=== PATIENT | female | born 1975 | race Caucasian/White ===

== ENCOUNTER 2016-05-06 08:20 | Emergency (ER) | payer OTHER ==
[2016-05-06] MEDS ORDERED: ONDANSETRON 4 MG/2 ML VIAL IVP STA (08:47)
[2016-05-06] MEDS ORDERED: HYDROmorphone 1 MG/ML 1 ML SYRINGE IVP STA ×2 (08:47→10:53)
[2016-05-06] MEDS ORDERED: SODIUM CHLORIDE 0.9% 1,000 ML IV STA ×2 (08:48)
--- NOTE | 2016-05-06 08:50 | ED ---
General Adult HPI - General Chief complaint: Abdominal Pain Stated complaint: ABDOMINAL DISTENTION, TAILBONE PAIN, FATIQUE Time Seen by Provider: 05/06/16 08:38 Source: patient, RN notes reviewed Mode of arrival: ambulatory - History of Present Illness Initial comments: Patient's a 41-year-old female who presents emergency room today with chief complaint of possible constipation over the last 4-5 days. She states she is unable to have a good bowel movement. She states she is only having small bowel movements since been passing much bowel gas. States she has been burping and belching. Patient does admit to lower abdominal pain cramping. She states she feels somewhat distended. Currently rates pain 9/10. She denies any other complaints or associated symptoms. Patient denies any recent fever, chills, shortness of breath, chest pain, back pain, nausea or vomiting, numbness or tingling, dysuria or hematuria, diarrhea, headaches or visual changes, or any other complaints. - Related Data Home Medications Medication Instructions Recorded Confirmed Levothyroxine Sodium [Synthroid] 112 mcg PO DAILY 05/22/15 05/06/16 Triamterene-Hctz 37.5-25Mg 1 tab PO DAILY 05/22/15 05/06/16 [Maxzide 37.5-25] ALPRAZolam [Xanax] 1 mg PO DAILY PRN 05/06/16 05/06/16 Hydrocodone/Acetaminophen [[place] 1 tab PO DAILY PRN 05/06/16 05/06/16 10-325] Melatonin 20 mg PO HS PRN 05/06/16 05/06/16 Naproxen 500 mg PO BID PRN 05/06/16 05/06/16 Nitrofurantoin Monohyd/M-Cryst 100 mg PO BID 05/06/16 05/06/16 [Macrobid] Phentermine HCl [Adipex-P] 37.5 mg PO DAILY 05/06/16 05/06/16 metFORMIN HCL [Glucophage] 500 mg PO BID 05/06/16 05/06/16 Previous Rx's Medication Instructions Recorded Ciprofloxacin HCl [Cipro] 500 mg PO Q12HR #14 day 05/06/16 Hydrocodone/Acetaminophen [[place] 1 each PO Q6HR PRN #10 tab 05/06/16 5-325] metroNIDAZOLE [Flagyl] 500 mg PO TID 7 Days 05/06/16 Allergies Allergy/AdvReac Type Severity Reaction Status Date / Time codeine Allergy Rash/Hives Verified 05/06/16 08:48 Review of Systems ROS Statement: Those systems with pertinent positive or pertinent negative responses have been documented in the HPI. ROS Other: All systems not noted in ROS Statement are negative. Past Medical History Past Medical History: Asthma, Hypertension, Thyroid Disorder Additional Past Medical History / Comment(s): celiac,chronic back pain,pcos History of Any Multi-Drug Resistant Organisms: None Reported Past Surgical History: Section, Tonsillectomy Past Psychological History: Anxiety Smoking Status: Current every day smoker Past Alcohol Use History: Occasional Past Drug Use History: None Reported General Exam - General Exam Comments Initial Comments: General: The patient is awake and alert, in no distress, and does not appear acutely ill. Eye: Pupils are equal, round and reactive to light, extra-ocular movements are intact. No nystagmus. There is normal conjunctiva bilaterally. No signs of icterus. Ears, nose, mouth and throat: There are moist mucous membranes and no oral lesions. Neck: The neck is supple, there is no tenderness or JVD. Cardiovascular: There is a regular rate and rhythm. No murmur, rub or gallop is appreciated. Respiratory: Lungs are clear to auscultation, respirations are non-labored, breath sounds are equal. No wheezes, stridor, rales, or rhonchi. Gastrointestinal: Normal appearance for abdomen. Normal bowel sounds. Abdomen soft on palpation. Patient does have mild tenderness lower abdomen both on the right left lower quadrants. No rebound tenderness. No guarding. No CVA tenderness. Musculoskeletal: Normal ROM, no tenderness. Strength 5/5. Sensation intact. Pulses equal bilaterally 2+. Neurological: A&O x 3. CN II-XII intact, There are no obvious motor or sensory deficits. Coordination appears grossly intact. Speech is normal. Skin: Skin is warm and dry and no rashes or lesions are noted. Psychiatric: Cooperative, appropriate mood & affect, normal judgment. Course Vital Signs 05/06/16 08:25 Temperature 97 F L Pulse Rate 94 Respiratory 18 Rate Blood Pressure 120/67 O2 Sat by Pulse 100 Oximetry Medical Decision Making - Medical Decision Making Case discussed in detail with attending physician Dr. Garcia. Patient's labs reviewed 11,000 white count. Patient's CAT scan revealing a sigmoid diverticulitis. Results were discussed with the patient. Patient will be started on Cipro Flagyl. Patient feeling comfortable at this time will be discharged home advised follow-up over the next 2 days. Advised return if any symptoms increase or worsen or for any other concerns. - Lab Data Result diagrams: 05/06/16 09:00 05/06/16 09:00 Lab Results 05/06/16 05/06/16 05/06/16 Range/Units 08:55 08:55 09:00 WBC 11.1 H (3.8-10.6) k/uL RBC 5.20 (3.80-5.40) m/uL Hgb 14.8 (11.4-16.0) gm/dL Hct 45.3 (34.0-46.0) % MCV 87.2 (80.0-100.0) fL MCH 28.4 (25.0-35.0) pg MCHC 32.5 (31.0-37.0) g/dL RDW 12.7 (11.5-15.5) % Plt Count 337 (150-450) k/uL Neutrophils % 76 % Lymphocytes % 17 % Monocytes % 4 % Eosinophils % 2 % Basophils % 1 % Neutrophils # 8.4 H (1.3-7.7) k/uL Lymphocytes # 1.8 (1.0-4.8) k/uL Monocytes # 0.4 (0-1.0) k/uL Eosinophils # 0.2 (0-0.7) k/uL Basophils # 0.1 (0-0.2) k/uL Sodium (137-145) mmol/L Potassium (3.5-5.1) mmol/L Chloride (98-107) mmol/L Carbon Dioxide (22-30) mmol/L Anion Gap mmol/L BUN (7-17) mg/dL Creatinine (0.52-1.04) mg/dL Est GFR (MDRD) Af Amer (>60 ml/min/1.73 sqM) Est GFR (MDRD) Non-Af (>60 ml/min/1.73 sqM) Glucose (74-99) mg/dL Calcium (8.4-10.2) mg/dL Total Bilirubin (0.2-1.3) mg/dL AST (14-36) U/L ALT (9-52) U/L Alkaline Phosphatase (38-126) U/L Total Protein (6.3-8.2) g/dL Albumin (3.5-5.0) g/dL Urine Color Yellow Urine Appearance Cloudy H (Clear) Urine pH 7.5 (5.0-8.0) Ur Specific [place] 1.006 (1.001-1.035) Urine Protein Negative (Negative) Urine Glucose (UA) Negative (Negative) Urine Ketones Negative (Negative) Urine Blood Moderate H (Negative) Urine Nitrate Negative (Negative) Urine Bilirubin Negative (Negative) Urine Urobilinogen <2.0 (<2.0) mg/dL Ur Leukocyte Esterase Moderate H (Negative) Urine RBC 2 (0-5) /hpf Urine WBC 5 (0-5) /hpf Ur Squamous Epith Cells 13 H (0-4) /hpf Urine Bacteria Rare H (None) /hpf Urine Mucus Rare H (None) /hpf Urine HCG, Qual Not Detected (Not Detectd) 05/06/16 Range/Units 09:00 WBC (3.8-10.6) k/uL RBC (3.80-5.40) m/uL Hgb (11.4-16.0) gm/dL Hct (34.0-46.0) % MCV (80.0-100.0) fL MCH (25.0-35.0) pg MCHC (31.0-37.0) g/dL RDW (11.5-15.5) % Plt Count (150-450) k/uL Neutrophils % % Lymphocytes % % Monocytes % % Eosinophils % % Basophils % % Neutrophils # (1.3-7.7) k/uL Lymphocytes # (1.0-4.8) k/uL Monocytes # (0-1.0) k/uL Eosinophils # (0-0.7) k/uL Basophils # (0-0.2) k/uL Sodium 142 (137-145) mmol/L Potassium 4.2 (3.5-5.1) mmol/L Chloride 99 (98-107) mmol/L Carbon Dioxide 30 (22-30) mmol/L Anion Gap 13 mmol/L BUN 12 (7-17) mg/dL Creatinine 0.79 (0.52-1.04) mg/dL Est GFR (MDRD) Af Amer >60 (>60 ml/min/1.73 sqM) Est GFR (MDRD) Non-Af >60 (>60 ml/min/1.73 sqM) Glucose 93 (74-99) mg/dL Calcium 9.8 (8.4-10.2) mg/dL Total Bilirubin 0.6 (0.2-1.3) mg/dL AST 24 (14-36) U/L ALT 35 (9-52) U/L Alkaline Phosphatase 66 (38-126) U/L Total Protein 7.7 (6.3-8.2) g/dL Albumin 4.7 (3.5-5.0) g/dL Urine Color Urine Appearance (Clear) Urine pH (5.0-8.0) Ur Specific [place] (1.001-1.035) Urine Protein (Negative) Urine Glucose (UA) (Negative) Urine Ketones (Negative) Urine Blood (Negative) Urine Nitrate (Negative) Urine Bilirubin (Negative) Urine Urobilinogen (<2.0) mg/dL Ur Leukocyte Esterase (Negative) Urine RBC (0-5) /hpf Urine WBC (0-5) /hpf Ur Squamous Epith Cells (0-4) /hpf Urine Bacteria (None) /hpf Urine Mucus (None) /hpf Urine HCG, Qual (Not Detectd) Disposition Clinical Impression: Diverticulitis Disposition: HOME SELF-CARE Condition: Good Instructions: Diverticulitis (ED) Additional Instructions: Please use medication as discussed. Please follow-up with family doctor in the next 2 days of symptoms have not improved. Please return to emergency room if the symptoms increase or worsen or for any other concerns. Prescriptions: Ciprofloxacin HCl [Cipro] 500 mg PO Q12HR #14 day Hydrocodone/Acetaminophen [[place] 5-325] 1 each PO Q6HR PRN #10 tab PRN Reason: Pain metroNIDAZOLE [Flagyl] 500 mg PO TID 7 Days Time of Disposition: 12:15
[2016-05-06 09:20] LABS: Basophils # (A) 0.1 k/uL (0-0.2); Basophils % (A) 1 %; CH 29.1; CHCM 33.5; Eosinophils # (A) 0.2 k/uL (0-0.7); Eosinophils % (A) 2 %; HCT 45.3 % (34.0-46.0); HDW 2.61; HGB 14.8 gm/dL (11.4-16.0); Luc # (Auto) 0.15; Luc % (Auto) 1; Lymphocytes # (A) 1.8 k/uL (1.0-4.8); Lymphocytes % (A) 17 %; MCH 28.4 pg (25.0-35.0); MCHC 32.5 g/dL (31.0-37.0); MCV 87.2 fL (80.0-100.0); Mean Platelet Volume 6.3; Monocytes # (A) 0.4 k/uL (0-1.0); Monocytes % (A) 4 %; Neutrophils # (A) 8.4 k/uL (1.3-7.7); Neutrophils % (A) 76 %; RDW 12.7 % (11.5-15.5); WBC 11.1 k/uL (3.8-10.6)
[2016-05-06 09:37] LABS: ALT 35 U/L (9-52); AST 24 U/L (14-36); Alkaline Phosphatase 66 U/L (38-126); Anion Gap 13 mmol/L; Blood Urea Nitrogen 12 mg/dL (7-17); Calcium 9.8 mg/dL (8.4-10.2); Carbon Dioxide 30 mmol/L (22-30); Chloride 99 mmol/L (98-107); Glucose 93 mg/dL (74-99); Non-African American GFR(MDRD) >60 (>60 ml/min/1.73 sqM); Potassium 4.2 mmol/L (3.5-5.1); Sodium 142 mmol/L (137-145); Total Bilirubin 0.6 mg/dL (0.2-1.3); Total Protein 7.7 g/dL (6.3-8.2)
[2016-05-06 09:40] LABS: Appearance,Urine Cloudy (Clear); Bacteria,Urine Rare /hpf; Bilirubin,Urine Negative (Negative); Glucose,Urine (UA) Negative (Negative); Ketones,Urine Negative (Negative); Leukocyte Esterase,Urine Moderate (Negative); Mucus,Urine Rare /hpf; Nitrite,Urine Negative (Negative); PH, Urine 7.5 (5.0-8.0); Particle Count 2925; Protein,Urine Negative (Negative); RBC,Urine 2 /hpf (0-5); Specific Gravity,Urine 1.006 (1.001-1.035); Squamous Epithelial Cell,Urine 13 /hpf (0-4); UA Billing (MACRO vs. MICRO) MICRO; Urobilinogen,Urine <2.0 mg/dL (<2.0); WBC,Urine 5 /hpf (0-5)
--- NOTE | 2016-05-06 10:10 | XR ---
EXAMINATION TYPE: XR abdomen complete w decub DATE OF EXAM: 05/06/2016 9:55 AM COMPARISON: NONE HISTORY: 41-year-old female lower abdominal pain with constipation TECHNIQUE: Single view of the chest and 2 views of the abdomen are submitted. FINDINGS: Lung bases are clear. No evidence for free intraperitoneal air. Numerous colonic air fluid levels and a few small bowel air-fluid levels as well without abnormal bow el dilatation. Cholecystectomy clips are present. IUD device is also seen. No suspicious calcification seen. There is mild degenerative change in both hips with prominent marginal spurring along the superior ac etabulum and can deformities at both hips. IMPRESSION: 1. Prominent colonic air-fluid levels and some small bowel air fluid levels as well. Correlate for en teritis or generalized ileus. 2. Overall nonobstructive bowel gas pattern at this time. No evidence for free air. 3. 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
[2016-05-06] MEDS ORDERED: RX INFO: IV CONTRAST WAS GIVEN 1 EACH MISC MISCELLANE PRN (10:53)
--- NOTE | 2016-05-06 11:47 | CT ---
EXAMINATION TYPE: CT abdomen pelvis w con DATE OF EXAM: 05/06/2016 11:40 AM COMPARISON: 06/29/2012 HISTORY: distention, bloating, constipation for [address] DLP: 1085.8 mGycm Automated exposure control for dose reduction was used. CONTRAST: CT scan of the abdomen pelvis is performed with IV Contrast, patient injected with 100 ml mL of Omnip aque 300. FINDINGS- LUNG BASES-subsegmental atelectasis at both lung bases.. LIVER/GB-surgical clips in the gallbladder fossa noted. PANCREAS- No gross abnormality is seen. SPLEEN- No gross abnormality is seen. ADRENALS- No gross abnormality is seen. KIDNEYS/BLADDER- no hydronephrosis nephrolithiasis or renal mass. BOWEL-there is diverticular change in the sigmoid colon with pericolonic inflammatory change compatib le with mild acute diverticulitis. No abscess or free air. LYMPH NODES- No greater than 1cm abdominal or pelvic lymph nodes are appreciated. OSSEOUS STRUCTURES-facet arthropathy noted. Hypertrophic changes of the spine seen. OTHER- aorta of normal caliber. IMPRESSION- 1. Acute uncomplicated sigmoid diverticulitis.
[2016-05-06 12:48] VITALS: BP 111/62; PULSE 73; RESP 16; TEMP 98.3
== END 2016-05-06 12:47 | disposition home or self-care (01) ==
LOC: EC 08:20
DX: K57.32 Diverticulitis of large intestine without perforation or abscess without bleeding (principal); I10 Essential (primary) hypertension; E07.9 Disorder of thyroid, unspecified; E28.2 Polycystic ovarian syndrome; F41.9 Anxiety disorder, unspecified; F17.200 Nicotine dependence, unspecified, uncomplicated; Z79.84 Long term (current) use of oral hypoglycemic drugs; Z79.899 Other long term (current) drug therapy; Z88.5 Allergy status to narcotic agent
CPT/HCPCS: 36415; 80053; 85025; 81001; 81025; 87086; 74020; 74177; 99284; 96374; 96375; 96376; 96361 ×4; J2405; J1170; Q9967

== ENCOUNTER 2016-05-11 16:30 | Emergency (ER) | payer OTHER ==
[2016-05-11] MEDS ORDERED: SODIUM CHLORIDE 0.9% 1,000 ML IV ONE (17:03)
[2016-05-11] MEDS ORDERED: MORPHINE SULFATE 4 MG/ML SYRINGE IVP STA (17:03)
--- NOTE | 2016-05-11 17:06 | ED ---
Abdominal Pain HPI - General Chief Complaint: Abdominal Pain Stated Complaint: Rectal Pain Time Seen by Provider: 05/11/16 16:54 Source: patient Mode of arrival: ambulatory Limitations: no limitations - History of Present Illness Initial Comments: This is a 41-year-old female who presents in [facility] for abdominal pain and rectal pain. She states that she was recently in the hospital and diagnosed with diverticulitis. She's been on Cipro and Flagyl at home. She reports that she was having improvement in her symptoms however she had a bowel movement yesterday and then started having worsening pain in her left lower quadrant and rectum. She states that she has not had any fevers or chills. She has not missed any doses of antibiotics. She states that it feels worse than when she originally presented. She is concerned that the infection is getting worse. She denies any other complaints. - Related Data Home Medications Medication Instructions Recorded Confirmed Levothyroxine Sodium [Synthroid] 112 mcg PO DAILY 05/22/15 05/11/16 Triamterene-Hctz 37.5-25Mg 1 tab PO DAILY 05/22/15 05/11/16 [Maxzide 37.5-25] Melatonin 20 mg PO HS PRN 05/06/16 05/11/16 Naproxen 500 mg PO BID PRN 05/06/16 05/11/16 Phentermine HCl [Adipex-P] 37.5 mg PO DAILY 05/06/16 05/11/16 metFORMIN HCL [Glucophage] 500 mg PO BID 05/06/16 05/11/16 ALPRAZolam [Xanax] 1 mg PO BID PRN 05/11/16 05/11/16 Hydrocodone/Acetaminophen [[place] 1 tab PO Q6HR PRN 05/11/16 05/11/16 5-325] Previous Rx's Medication Instructions Recorded Ciprofloxacin HCl [Cipro] 500 mg PO Q12HR #14 day 05/06/16 metroNIDAZOLE [Flagyl] 500 mg PO TID 7 Days 05/06/16 Ciprofloxacin HCl [Cipro] 500 mg PO Q12HR #6 tablet 05/11/16 HYDROcodone/APAP 5-325MG [[place] 1 tab PO Q6HR PRN #15 tab 05/11/16 5-325] metroNIDAZOLE [Flagyl] 500 mg PO Q8HR #9 tab 05/11/16 Allergies Allergy/AdvReac Type Severity Reaction Status Date / Time codeine Allergy Mild Itching Verified 05/11/16 17:36 Review of Systems ROS Statement: Those systems with pertinent positive or pertinent negative responses have been documented in the HPI. ROS Other: All systems not noted in ROS Statement are negative. Past Medical History Past Medical History: Asthma, Hypertension, Thyroid Disorder Additional Past Medical History / Comment(s): celiac,chronic back pain,pcos History of Any Multi-Drug Resistant Organisms: None Reported, MRSA Date of last positivie culture/infection: 2007 MDRO Source:: leg Past Surgical History: Section, Cholecystectomy, Tonsillectomy Past Psychological History: Anxiety Smoking Status: Former smoker Past Alcohol Use History: Occasional Past Drug Use History: None Reported General Exam - General Exam Comments Initial Comments: Constitutional: Awake alert Appears comfortable Head: Normocephalic atraumatic Eyes: no conjunctival injection No scleral icterus EOMI Neck: No JVD Supple Heart: Regular rate rhythm normal S1-S2 no murmurs Lungs: Clear to auscultation bilaterally No wheezing No rales Abdomen: Soft nondistended tenderness to the left lower quadrant and left upper quadrant Extremities: Non edematous DP pulses intact Radial pulses intact Neuro: A&Ox3 No focal neurologic deficits Psych: Appropriate mood and affect Limitations: no limitations Course Vital Signs 05/11/16 16:47 Temperature 98.1 F Pulse Rate 97 Respiratory 18 Rate Blood Pressure 131/59 O2 Sat by Pulse 98 Oximetry Medical Decision Making - Medical Decision Making This is a 41-year-old female who presents emergency department for worsening rectal pain. Computed tomography scan did confirm persistent diverticulitis however it did seem to be improving. At this time going to send her home on a prolonged course of Cipro and Flagyl. She's taken 6 days worth and when he give her 3 more days. I also going to refill her pain medication. She can follow-up with her primary doctor for reevaluation. I also believe that she needs to be in the stool softener and given 500 her diet. I think that some of her discomfort is likely related to constipation. Told her that if she continues to have persistent symptoms are worsen she can return. All questions were answered. - Lab Data Result diagrams: 05/11/16 17:30 05/11/16 17:30 Lab Results 05/11/16 05/11/16 05/11/16 Range/Units 17:30 17:30 17:41 WBC 9.0 (3.8-10.6) k/uL RBC 5.02 (3.80-5.40) m/uL Hgb 14.2 (11.4-16.0) gm/dL Hct 43.2 (34.0-46.0) % MCV 86.2 (80.0-100.0) fL MCH 28.2 (25.0-35.0) pg MCHC 32.8 (31.0-37.0) g/dL RDW 12.9 (11.5-15.5) % Plt Count 287 (150-450) k/uL Neutrophils % 62 % Lymphocytes % 27 % Monocytes % 5 % Eosinophils % 4 % Basophils % 1 % Neutrophils # 5.6 (1.3-7.7) k/uL Lymphocytes # 2.4 (1.0-4.8) k/uL Monocytes # 0.4 (0-1.0) k/uL Eosinophils # 0.3 (0-0.7) k/uL Basophils # 0.1 (0-0.2) k/uL Sodium 141 (137-145) mmol/L Potassium 3.8 (3.5-5.1) mmol/L Chloride 100 (98-107) mmol/L Carbon Dioxide 29 (22-30) mmol/L Anion Gap 12 mmol/L BUN 10 (7-17) mg/dL Creatinine 0.70 (0.52-1.04) mg/dL Est GFR (MDRD) Af Amer >60 (>60 ml/min/1.73 sqM) Est GFR (MDRD) Non-Af >60 (>60 ml/min/1.73 sqM) Glucose 72 L (74-99) mg/dL Calcium 9.6 (8.4-10.2) mg/dL Total Bilirubin 0.2 (0.2-1.3) mg/dL AST 46 H (14-36) U/L ALT 51 (9-52) U/L Alkaline Phosphatase 53 (38-126) U/L Total Protein 6.7 (6.3-8.2) g/dL Albumin 4.2 (3.5-5.0) g/dL Urine Color Urine Appearance (Clear) Urine pH (5.0-8.0) Ur Specific [place] (1.001-1.035) Urine Protein (Negative) Urine Glucose (UA) (Negative) Urine Ketones (Negative) Urine Blood (Negative) Urine Nitrate (Negative) Urine Bilirubin (Negative) Urine Urobilinogen (<2.0) mg/dL Ur Leukocyte Esterase (Negative) Urine RBC (0-5) /hpf Urine WBC (0-5) /hpf Ur Squamous Epith Cells (0-4) /hpf Urine HCG, Qual Not Detected (Not Detectd) 05/11/16 Range/Units 17:41 WBC (3.8-10.6) k/uL RBC (3.80-5.40) m/uL Hgb (11.4-16.0) gm/dL Hct (34.0-46.0) % MCV (80.0-100.0) fL MCH (25.0-35.0) pg MCHC (31.0-37.0) g/dL RDW (11.5-15.5) % Plt Count (150-450) k/uL Neutrophils % % Lymphocytes % % Monocytes % % Eosinophils % % Basophils % % Neutrophils # (1.3-7.7) k/uL Lymphocytes # (1.0-4.8) k/uL Monocytes # (0-1.0) k/uL Eosinophils # (0-0.7) k/uL Basophils # (0-0.2) k/uL Sodium (137-145) mmol/L Potassium (3.5-5.1) mmol/L Chloride (98-107) mmol/L Carbon Dioxide (22-30) mmol/L Anion Gap mmol/L BUN (7-17) mg/dL Creatinine (0.52-1.04) mg/dL Est GFR (MDRD) Af Amer (>60 ml/min/1.73 sqM) Est GFR (MDRD) Non-Af (>60 ml/min/1.73 sqM) Glucose (74-99) mg/dL Calcium (8.4-10.2) mg/dL Total Bilirubin (0.2-1.3) mg/dL AST (14-36) U/L ALT (9-52) U/L Alkaline Phosphatase (38-126) U/L Total Protein (6.3-8.2) g/dL Albumin (3.5-5.0) g/dL Urine Color Yellow Urine Appearance Clear (Clear) Urine pH 6.0 (5.0-8.0) Ur Specific [place] 1.006 (1.001-1.035) Urine Protein Negative (Negative) Urine Glucose (UA) Negative (Negative) Urine Ketones Trace H (Negative) Urine Blood Negative (Negative) Urine Nitrate Negative (Negative) Urine Bilirubin Negative (Negative) Urine Urobilinogen <2.0 (<2.0) mg/dL Ur Leukocyte Esterase Small H (Negative) Urine RBC <1 (0-5) /hpf Urine WBC 2 (0-5) /hpf Ur Squamous Epith Cells 5 H (0-4) /hpf Urine HCG, Qual (Not Detectd) Disposition Clinical Impression: Diverticulitis Disposition: HOME SELF-CARE Condition: Stable Instructions: Diverticulitis (ED) Prescriptions: Ciprofloxacin HCl [Cipro] 500 mg PO Q12HR #6 tablet HYDROcodone/APAP 5-325MG [[place] 5-325] 1 tab PO Q6HR PRN #15 tab PRN Reason: Pain metroNIDAZOLE [Flagyl] 500 mg PO Q8HR #9 tab Referrals: Lorraine Redd MD [Primary Care Provider] - 1-2 days
[2016-05-11 17:40] LABS: Basophils # (A) 0.1 k/uL (0-0.2); Basophils % (A) 1 %; CH 29.1; Eosinophils # (A) 0.3 k/uL (0-0.7); Eosinophils % (A) 4 %; HCT 43.2 % (34.0-46.0); HDW 2.69; HGB 14.2 gm/dL (11.4-16.0); Luc # (Auto) 0.14; Luc % (Auto) 2; Lymphocytes # (A) 2.4 k/uL (1.0-4.8); Lymphocytes % (A) 27 %; MCH 28.2 pg (25.0-35.0); MCHC 32.8 g/dL (31.0-37.0); MCV 86.2 fL (80.0-100.0); Mean Platelet Volume 6.9; Monocytes # (A) 0.4 k/uL (0-1.0); Monocytes % (A) 5 %; Neutrophils # (A) 5.6 k/uL (1.3-7.7); Neutrophils % (A) 62 %; RBC 5.02 m/uL (3.80-5.40); RDW 12.9 % (11.5-15.5); WBC (Perox) 8.77
[2016-05-11 17:51] LABS: ALT 51 U/L (9-52); AST 46 U/L (14-36); Alkaline Phosphatase 53 U/L (38-126); Anion Gap 12 mmol/L; Blood Urea Nitrogen 10 mg/dL (7-17); Calcium 9.6 mg/dL (8.4-10.2); Carbon Dioxide 29 mmol/L (22-30); Chloride 100 mmol/L (98-107); Glucose 72 mg/dL (74-99); Non-African American GFR(MDRD) >60 (>60 ml/min/1.73 sqM); Potassium 3.8 mmol/L (3.5-5.1); Sodium 141 mmol/L (137-145); Total Bilirubin 0.2 mg/dL (0.2-1.3); Total Protein 6.7 g/dL (6.3-8.2)
[2016-05-11 18:01] LABS: Appearance,Urine Clear (Clear); Bilirubin,Urine Negative (Negative); Glucose,Urine (UA) Negative (Negative); Ketones,Urine Trace (Negative); Leukocyte Esterase,Urine Small (Negative); Nitrite,Urine Negative (Negative); Particle Count 748; Protein,Urine Negative (Negative); RBC,Urine <1 /hpf (0-5); Specific Gravity,Urine 1.006 (1.001-1.035); Squamous Epithelial Cell,Urine 5 /hpf (0-4); UA Billing (MACRO vs. MICRO) MICRO; Urobilinogen,Urine <2.0 mg/dL (<2.0); WBC,Urine 2 /hpf (0-5)
[2016-05-11] MEDS ORDERED: ONDANSETRON 4 MG/2 ML VIAL IVP STA (18:33)
--- NOTE | 2016-05-11 18:40 | CT ---
EXAMINATION TYPE: CT abdomen pelvis wo con DATE OF EXAM: 05/11/2016 6:34 PM COMPARISON: 05/06/2016 HISTORY: Pt states of LLQ pain and rectal pain. Hx of recent diverticulosis. CT DLP: 690.1 mGycm Automated exposure control for dose reduction was used. TECHNIQUE: Helical acquisition of images was performed from the lung bases through the pelvis. FINDINGS: Lung bases are clear. There is no pleural effusion. There is a small hiatal hernia. The liver spleen pancreas appear normal. There are clips from cholecy stectomy. Bile ducts are not dilated. There is no adrenal mass. Kidneys have normal size and contour. There is no hydronephrosis. There is no retroperitoneal adenopathy. There are multiple diverticula i n the sigmoid colon. There is minimal stranding around the sigmoid colon. IUD is noted. Bladder diste nds smoothly. There is no pelvic mass. Appendix is not seen with certainty. There is no sign of appen dicitis. There is a umbilical hernia that contains omental fat. Hernia measures 3 x 1 cm. I see no sonia ny destructive process. IMPRESSION: THERE IS EVIDENCE OF MILD SIGMOID DIVERTICULITIS THAT IS IMPROVED IN APPEARANCE COMPARED TO LAST EXAM OF 05/06/2016. NO ABSCESS. MODERATE DIVERTICULOSIS.
[2016-05-11 19:24] VITALS: BP 123/56; PULSE 70; RESP 16; TEMP 98
== END 2016-05-11 19:22 | disposition home or self-care (01) ==
LOC: EC 16:30
DX: K57.32 Diverticulitis of large intestine without perforation or abscess without bleeding (principal); K62.89 Other specified diseases of anus and rectum; E07.9 Disorder of thyroid, unspecified; I10 Essential (primary) hypertension; Z79.899 Other long term (current) drug therapy; Z88.5 Allergy status to narcotic agent; Z79.84 Long term (current) use of oral hypoglycemic drugs
CPT/HCPCS: 36415; 80053; 85025; 81001; 81025; 87086; 74176; 96374; 96375; 96361; 99284; J2270; J2405; 96376

== ENCOUNTER 2016-06-07 10:20 | Day surgery (SDC) | payer OTHER ==
[2016-06-02 15:50] VITALS: BMI 34.1
[~2016-06-07 10:20] MED LIST: LACTATED RINGERS 1,000 ML IV SCH
[2016-06-07 11:07] VITALS: TEMP 97.6
[2016-06-07] MEDS ORDERED: LIDOCAINE 1% INJ 10MG/ML (20 ML MDV) ONE (11:08)
[2016-06-07] MEDS ORDERED: PROPOFOL 10 MG/ML 20 ML VIAL IV ONE (11:08)
[2016-06-07] MEDS ORDERED: MIDAZOLAM 2 MG/2 ML VIAL ONE (11:08)
[2016-06-07] MEDS ORDERED: fentaNYL (PF) 50 MCG/ML 2 ML AMP ONE (11:08)
[2016-06-07 11:56] VITALS: RESP 18
[2016-06-07 11:59] VITALS: BP 117/81
[2016-06-07 12:00] VITALS: PULSE 65
--- NOTE | 2016-06-07 12:00 | P.PCN ---
Date of Procedure: 06/07/16 Procedure(s) Performed: Procedures: 1. Esophagogastroduodenoscopy and biopsy. 2. Total colonoscopy. Preoperative diagnosis: Abdominal pain and change in bowel habits. Postoperative diagnosis: 1. Small sliding hiatal hernia with no obvious esophagitis or complicated reflux disease. 2. Mild antral gastritis and minimal duodenitis. 3. Sigmoid diverticulosis with no evidence of acute diverticulitis, strictures, polyps, cancer or inflammatory bowel disease. Preparation: HalfLytely prep. Sedation: Was provided by anesthesia. Brief clinical history: The patient is a 41-year-old female who is referred for this evaluation for upper endoscopy and colonoscopy because of abdominal pain and change in bowel habits in the form of constipation and intermittent rectal bleeding. The patient has history of diverticulitis. She was diagnosed with celiac disease around 3 years ago. At that time she was having significant diarrhea and weight loss. Things have significantly improved since she was started no gluten free diet. She has been having issues since the end of last year and into this year of worsening abdominal pain and constipation and intermittent rectal bleeding. There is family history of positive colitis in her mother. This evaluation is to assess the status of her celiac disease and rule out other pathology. . Procedure: With the patient on her left lateral decubitus position and after informed consent and adequate sedation, I passed the Olympus-GIF 160 video upper endoscope through the cricopharyngeus down the esophagus. GE junction was around 38 cm from the incisors and there was a small sliding hiatal hernia. The esophagus did not show any erosions, ulcers, strictures or Sanon's esophagus. The endoscope was then passed into the stomach which was insufflated with air and inspected in detail including the retroflex view in the cardia. There was mottling and erythema in the antrum consistent with mild gastritis but no ulcers or erosions. Pyloric channel did not show any ulcers. Duodenal bulb, post bulbar area and descending duodenum showed minimal erythema. I obtained multiple biopsies from the duodenum, antrum and esophagus then the endoscope was withdrawn and I proceeded with the colonoscopy. Perianal area did not show any fissures or fistulas. There were no masses felt on digital rectal examination. The Olympus CFQ 160L video colonoscope was then inserted in the rectum in the usual fashion and advanced to the cecum. I intubated the ileocecal valve and no obvious abnormalities were noted. There were several diverticular orifices seen scattered in the sigmoid but I saw no evidence of acute diverticulitis or strictures. No polyps or tumors were seen. I retroflexed endoscope in the rectum before the endoscope was withdrawn. The patient tolerated the procedure well. Plan: The patient was reassured. Will await biopsy results. She will follow- up with you as planned and I will be happy to see in the office if her symptoms persist.
== END 2016-06-07 12:38 | disposition home or self-care (01) ==
LOC: ORWHC2ENDO 10:20
DX: K20.9 Esophagitis, unspecified (principal); K29.50 Unspecified chronic gastritis without bleeding; K57.30 Diverticulosis of large intestine without perforation or abscess without bleeding; I10 Essential (primary) hypertension; J45.909 Unspecified asthma, uncomplicated; Z87.19 Personal history of other diseases of the digestive system; Z79.891 Long term (current) use of opiate analgesic; Z79.52 Long term (current) use of systemic steroids; Z79.899 Other long term (current) drug therapy; Z88.5 Allergy status to narcotic agent
CPT/HCPCS: 81025; 88305; 88342; 45378; 43239; J2250; J2001; J3010; J2704; 99153

== ENCOUNTER 2016-09-13 19:44 | Observation (INO) | payer OTHER ==
[2016-09-13] MEDS ORDERED: SODIUM CHLORIDE 0.9% 1,000 ML IV STA (20:47)
--- NOTE | 2016-09-13 20:50 | ED ---
General Adult HPI - General Chief complaint: Syncope Stated complaint: syncope Time Seen by Provider: 09/13/16 20:40 Source: patient, RN notes reviewed Mode of arrival: ambulatory Limitations: no limitations - History of Present Illness Initial comments: Patient is a pleasant 41-year-old female presenting to the emergency department with syncope. Patient had 2 syncopal episodes yesterday. Episodes last a couple of minutes. Episodes occur at rest. It does take the patient a couple minutes to fully return to normal following an episode. Patient does have grade discoloration of her face and lips and coldness of her extremities during the events. Patient did have similar events done several months ago. No chest pain. No dyspnea. Patient feels somewhat lightheaded still today. Patient feels at times she struggles to find word however is able to find it after a couple of seconds. No isolated area of weakness. No nausea vomiting. - Related Data Home Medications Medication Instructions Recorded Confirmed Levothyroxine Sodium [Synthroid] 112 mcg PO DAILY 05/22/15 09/13/16 Triamterene-Hctz 37.5-25Mg 1 tab PO DAILY 05/22/15 09/13/16 [Maxzide 37.5-25] Naproxen 500 mg PO BID PRN 05/06/16 09/13/16 Phentermine HCl [Adipex-P] 37.5 mg PO DAILY 05/06/16 09/13/16 metFORMIN HCL [Glucophage] 500 mg PO BID 05/06/16 09/13/16 ALPRAZolam [Xanax] 0.5 mg PO BID PRN 09/13/16 09/13/16 DULoxetine HCL [Cymbalta] 30 mg PO DAILY 09/13/16 09/13/16 HYDROcodone/APAP 10-325MG [[place] 1 tab PO BID PRN 09/13/16 09/13/16 10-325] Omeprazole 20 mg PO BID 09/13/16 09/13/16 Sulfamethox-Tmp 800-160Mg [Bactrim 1 tab PO Q12HR 09/13/16 09/13/16 DS 800-160 mg] Zolpidem [Ambien] 5 - 10 mg PO HS PRN 09/13/16 09/13/16 Allergies Allergy/AdvReac Type Severity Reaction Status Date / Time codeine Allergy Mild Itching Verified 09/13/16 21:35 Review of Systems ROS Statement: Those systems with pertinent positive or pertinent negative responses have been documented in the HPI. ROS Other: All systems not noted in ROS Statement are negative. Constitutional: Denies: fever Eyes: Denies: eye pain ENT: Denies: ear pain Respiratory: Denies: cough Cardiovascular: Reports: palpitations (Patient has had palpitations all day). Denies: chest pain Endocrine: Reports: fatigue Gastrointestinal: Denies: abdominal pain Genitourinary: Denies: dysuria Musculoskeletal: Denies: back pain Skin: Denies: rash Neurological: Denies: headache Past Medical History Past Medical History: Asthma, Hypertension, Thyroid Disorder Additional Past Medical History / Comment(s): celiac,chronic back pain,pcos; diverticulitis History of Any Multi-Drug Resistant Organisms: None Reported, MRSA Date of last positivie culture/infection: 2007 MDRO Source:: leg Past Surgical History: Section, Cholecystectomy, Tonsillectomy Past Anesthesia/Blood Transfusion Reactions: No Reported Reaction Past Psychological History: Anxiety Smoking Status: Former smoker Past Alcohol Use History: Occasional Past Drug Use History: None Reported - Past Family History Mother Family Medical History: No Reported History General Exam Limitations: no limitations General appearance: alert, in no apparent distress Head exam: Present: atraumatic Eye exam: Present: normal appearance, PERRL, EOMI. Absent: nystagmus ENT exam: Present: normal oropharynx Neck exam: Present: normal inspection Respiratory exam: Present: normal lung sounds bilaterally Cardiovascular Exam: Present: regular rate, normal rhythm, normal heart sounds Expanded Peripheral pulses: 2+: Radial (R), Radial (L), Posterior Tibialis (R), Posterior Tibialis (L) GI/Abdominal exam: Present: soft. Absent: distended, tenderness, guarding, rebound, rigid, pulsatile mass Extremities exam: Present: normal inspection. Absent: pedal edema, calf tenderness Neurological exam: Present: alert, oriented X3, CN II-XII intact. Absent: motor sensory deficit Expanded Cranial nerves: EOM's Intact: Normal, Facial Sensation: Normal Cerebellar function: Finger to Nose: Normal Sensory exam: Upper Extremity Light Touch: Normal, Lower Extremity Light Touch: Normal Motor strength exam: RUE: 5, LUE: 5, RLE: 5, LLE: 5 Eye Response: (4) open spontaneously Motor Response: (6) obeys commands Verbal Response: (5) oriented Psychiatric exam: Present: normal affect, normal mood Skin exam: Present: normal color Course Vital Signs 09/13/16 09/13/16 09/13/16 19:45 22:08 22:16 Temperature 97.3 F L 98.8 F Pulse Rate 87 66 87 Respiratory 16 18 18 Rate Blood Pressure 143/91 151/85 148/65 O2 Sat by Pulse 96 100 100 Oximetry EKG Findings - EKG Comments: EKG Findings:: Normal sinus rhythm at 69. Sinus arrhythmia is present. NH 146. QRS 94. QT 396. QTc 424. Normal axis. Normal QRS. Normal ST-T. Medical Decision Making - Medical Decision Making Patient reevaluated and resting comfortably in bed. Patient did have some discomfort of her chest that resolved nitroglycerin. Patient and family updated on results and plan. Case discussed in detail with Dr. Smith, who will admit for Dr. Clarke. Patient states her brother does have a history of valve disease needing open- heart replacement as well as pacemaker and defibrillator. - Lab Data Result diagrams: 09/13/16 21:04 09/13/16 21:04 Lab Results 09/13/16 09/13/16 09/13/16 Range/Units 20:51 20:51 21:04 WBC (3.8-10.6) k/uL RBC (3.80-5.40) m/uL Hgb (11.4-16.0) gm/dL Hct (34.0-46.0) % MCV (80.0-100.0) fL MCH (25.0-35.0) pg MCHC (31.0-37.0) g/dL RDW (11.5-15.5) % Plt Count (150-450) k/uL Neutrophils % % Lymphocytes % % Monocytes % % Eosinophils % % Basophils % % Neutrophils # (1.3-7.7) k/uL Lymphocytes # (1.0-4.8) k/uL Monocytes # (0-1.0) k/uL Eosinophils # (0-0.7) k/uL Basophils # (0-0.2) k/uL PT (9.0-12.0) sec INR (<1.1) APTT (22.0-30.0) sec D-Dimer (<0.60) mg/L FEU Sodium (137-145) mmol/L Potassium (3.5-5.1) mmol/L Chloride (98-107) mmol/L Carbon Dioxide (22-30) mmol/L Anion Gap mmol/L BUN (7-17) mg/dL Creatinine (0.52-1.04) mg/dL Est GFR (MDRD) Af Amer (>60 ml/min/1.73 sqM) Est GFR (MDRD) Non-Af (>60 ml/min/1.73 sqM) Glucose (74-99) mg/dL Calcium (8.4-10.2) mg/dL Magnesium (1.6-2.3) mg/dL Total Bilirubin (0.2-1.3) mg/dL AST (14-36) U/L ALT (9-52) U/L Alkaline Phosphatase (38-126) U/L Total Creatine Kinase 189 H (30-135) U/L CK-MB (CK-2) 3.0 H* (0.0-2.4) ng/mL CK-MB (CK-2) Rel Index 1.6 Troponin I <0.012 (0.000-0.034) ng/mL Total Protein (6.3-8.2) g/dL Albumin (3.5-5.0) g/dL Free T4 (0.78-2.19) ng/dL Free T3 pg/mL (2.8-5.3) pg/ml Urine Color Yellow Urine Appearance Cloudy H (Clear) Urine pH 6.0 (5.0-8.0) Ur Specific [place] 1.019 (1.001-1.035) Urine Protein Negative (Negative) Urine Glucose (UA) Negative (Negative) Urine Ketones Negative (Negative) Urine Blood Negative (Negative) Urine Nitrite Negative (Negative) Urine Bilirubin Negative (Negative) Urine Urobilinogen <2.0 (<2.0) mg/dL Ur Leukocyte Esterase Large H (Negative) Urine RBC 5 (0-5) /hpf Urine WBC 13 H (0-5) /hpf Ur Squamous Epith Cells 6 H (0-4) /hpf Hyaline Casts 1 (0-2) /lpf Urine Mucus Rare H (None) /hpf Urine HCG, Qual Not Detected (Not Detectd) Urine Opiates Screen Detected H (NotDetected) Ur Oxycodone Screen Not Detected (NotDetected) Urine Methadone Screen Not Detected (NotDetected) Ur Propoxyphene Screen Not Detected (NotDetected) Ur Barbiturates Screen Not Detected (NotDetected) U Tricyclic Antidepress Not Detected (NotDetected) Ur Phencyclidine Scrn Not Detected (NotDetected) Ur Amphetamines Screen Detected H (NotDetected) U Methamphetamines Scrn Not Detected (NotDetected) U Benzodiazepines Scrn Detected H (NotDetected) Urine Cocaine Screen Not Detected (NotDetected) U Marijuana (THC) Screen Not Detected (NotDetected) 09/13/16 09/13/16 09/13/16 Range/Units 21:04 21:04 21:04 WBC 12.5 H (3.8-10.6) k/uL RBC 5.00 (3.80-5.40) m/uL Hgb 14.4 (11.4-16.0) gm/dL Hct 44.1 (34.0-46.0) % MCV 88.1 (80.0-100.0) fL MCH 28.8 (25.0-35.0) pg MCHC 32.7 (31.0-37.0) g/dL RDW 13.1 (11.5-15.5) % Plt Count 302 (150-450) k/uL Neutrophils % 66 % Lymphocytes % 26 % Monocytes % 4 % Eosinophils % 2 % Basophils % 1 % Neutrophils # 8.3 H (1.3-7.7) k/uL Lymphocytes # 3.3 (1.0-4.8) k/uL Monocytes # 0.5 (0-1.0) k/uL Eosinophils # 0.2 (0-0.7) k/uL Basophils # 0.1 (0-0.2) k/uL PT 9.6 (9.0-12.0) sec INR 0.9 (<1.1) APTT 23.3 (22.0-30.0) sec D-Dimer 0.44 (<0.60) mg/L FEU Sodium 138 (137-145) mmol/L Potassium 4.0 (3.5-5.1) mmol/L Chloride 97 L (98-107) mmol/L Carbon Dioxide 27 (22-30) mmol/L Anion Gap 14 mmol/L BUN 15 (7-17) mg/dL Creatinine 0.80 (0.52-1.04) mg/dL Est GFR (MDRD) Af Amer >60 (>60 ml/min/1.73 sqM) Est GFR (MDRD) Non-Af >60 (>60 ml/min/1.73 sqM) Glucose 85 (74-99) mg/dL Calcium 10.0 (8.4-10.2) mg/dL Magnesium 2.0 (1.6-2.3) mg/dL Total Bilirubin 0.3 (0.2-1.3) mg/dL AST 32 (14-36) U/L ALT 34 (9-52) U/L Alkaline Phosphatase 63 (38-126) U/L Total Creatine Kinase (30-135) U/L CK-MB (CK-2) (0.0-2.4) ng/mL CK-MB (CK-2) Rel Index Troponin I (0.000-0.034) ng/mL Total Protein 7.4 (6.3-8.2) g/dL Albumin 4.6 (3.5-5.0) g/dL Free T4 1.38 (0.78-2.19) ng/dL Free T3 pg/mL 3.6 (2.8-5.3) pg/ml Urine Color Urine Appearance (Clear) Urine pH (5.0-8.0) Ur Specific [place] (1.001-1.035) Urine Protein (Negative) Urine Glucose (UA) (Negative) Urine Ketones (Negative) Urine Blood (Negative) Urine Nitrite (Negative) Urine Bilirubin (Negative) Urine Urobilinogen (<2.0) mg/dL Ur Leukocyte Esterase (Negative) Urine RBC (0-5) /hpf Urine WBC (0-5) /hpf Ur Squamous Epith Cells (0-4) /hpf Hyaline Casts (0-2) /lpf Urine Mucus (None) /hpf Urine HCG, Qual (Not Detectd) Urine Opiates Screen (NotDetected) Ur Oxycodone Screen (NotDetected) Urine Methadone Screen (NotDetected) Ur Propoxyphene Screen (NotDetected) Ur Barbiturates Screen (NotDetected) U Tricyclic Antidepress (NotDetected) Ur Phencyclidine Scrn (NotDetected) Ur Amphetamines Screen (NotDetected) U Methamphetamines Scrn (NotDetected) U Benzodiazepines Scrn (NotDetected) Urine Cocaine Screen (NotDetected) U Marijuana (THC) Screen (NotDetected) - Radiology Data Radiology results: report reviewed (Computed tomography scan of brain shows no acute process), image reviewed (Chest x-ray shows no acute process) Disposition Clinical Impression: Syncope Disposition: ADMITTED IP TO THIS HOSP Referrals: Lorraine Redd MD [Primary Care Provider] - 1-2 days Decision Time: 22:41
[2016-09-13 21:21] LABS: Basophils # (A) 0.1 k/uL (0-0.2); Basophils % (A) 1 %; CH 29.4; CHCM 33.5; Eosinophils # (A) 0.2 k/uL (0-0.7); Eosinophils % (A) 2 %; HCT 44.1 % (34.0-46.0); HDW 2.48; HGB 14.4 gm/dL (11.4-16.0); Luc # (Auto) 0.21; Luc % (Auto) 2; Lymphocytes # (A) 3.3 k/uL (1.0-4.8); Lymphocytes % (A) 26 %; MCH 28.8 pg (25.0-35.0); MCHC 32.7 g/dL (31.0-37.0); MCV 88.1 fL (80.0-100.0); Mean Platelet Volume 6.5; Monocytes # (A) 0.5 k/uL (0-1.0); Monocytes % (A) 4 %; Neutrophils # (A) 8.3 k/uL (1.3-7.7); Neutrophils % (A) 66 %; RDW 13.1 % (11.5-15.5); WBC 12.5 k/uL (3.8-10.6); WBC (Perox) 12.04
[2016-09-13 21:21] LABS: Appearance,Urine Cloudy (Clear); Bilirubin,Urine Negative (Negative); Glucose,Urine (UA) Negative (Negative); Ketones,Urine Negative (Negative); Leukocyte Esterase,Urine Large (Negative); Mucus,Urine Rare /hpf; Nitrite,Urine Negative (Negative); Particle Count 4430; Protein,Urine Negative (Negative); RBC,Urine 5 /hpf (0-5); Specific Gravity,Urine 1.019 (1.001-1.035); Squamous Epithelial Cell,Urine 6 /hpf (0-4); UA Billing (MACRO vs. MICRO) MICRO; Urobilinogen,Urine <2.0 mg/dL (<2.0); WBC,Urine 13 /hpf (0-5)
[2016-09-13 21:28] LABS: ALT 34 U/L (9-52); AST 32 U/L (14-36); Alkaline Phosphatase 63 U/L (38-126); Anion Gap 14 mmol/L; Blood Urea Nitrogen 15 mg/dL (7-17); Carbon Dioxide 27 mmol/L (22-30); Chloride 97 mmol/L (98-107); Glucose 85 mg/dL (74-99); Non-African American GFR(MDRD) >60 (>60 ml/min/1.73 sqM); Sodium 138 mmol/L (137-145); Total Bilirubin 0.3 mg/dL (0.2-1.3); Total Protein 7.4 g/dL (6.3-8.2)
[2016-09-13 21:33] LABS: INR 0.9 (<1.1); Partial Thromboplastin Time 23.3 sec (22.0-30.0); Prothrombin Time 9.6 sec (9.0-12.0)
--- NOTE | 2016-09-13 21:35 | CT ---
EXAMINATION TYPE: CT brain wo con DATE OF EXAM: 09/13/2016 9:28 PM COMPARISON: 05/22/2015 HISTORY: Syncope today. CT DLP: 943.8 mGycm Automated exposure control for dose reduction was used. FINDINGS: Ventricles and sulci appear normal. There is no mass effect nor midline shift. There is no sign of in tracranial hemorrhage. Calvarium is intact. IMPRESSION: Negative unenhanced head CT scan. No change.
--- NOTE | 2016-09-13 21:36 | XR ---
EXAMINATION TYPE: XR chest 2V DATE OF EXAM: 09/13/2016 9:32 PM COMPARISON: 05/22/2015 HISTORY: Syncope TECHNIQUE: Frontal and lateral views of the chest are obtained. FINDINGS: Heart and mediastinum are normal. Lungs are clear. Diaphragm is normal. Bony thorax is int act. There are chest leads. IMPRESSION: Normal chest. There is clearing of right middle lobe pneumonia compared to old exam.
[2016-09-13 21:41] LABS: Creatine Kinase 189 U/L (30-135)
[2016-09-13 21:56] LABS: Troponin I <0.012 ng/mL (0.000-0.034)
[2016-09-13] MEDS: NITROGLYCERIN SL TABS 0.4 MG TAB SUBLINGUAL PRN ×2 (22:13→22:19)
[2016-09-13] MEDS ORDERED: NITROGLYCERIN SL TABS 0.4 MG TAB SUBLINGUAL PRN (22:41)
[2016-09-13] MEDS ORDERED: ASPIRIN 81 MG CHEW PO STA (22:41)
[2016-09-14 00:42] VITALS: BMI 34.1
[2016-09-14] MEDS ORDERED: ZOLPIDEM 5 MG TAB PO PRN (01:37)
[2016-09-14] MEDS: NITROGLYCERIN OINT 1 INCH/GM PACKET TOPICAL SCH ×2 (03:16→06:37)
[2016-09-14 04:09] LABS: Cholesterol 155 mg/dL (<200); HDL Cholesterol 45 mg/dL (40-60); Triglycerides 132 mg/dL (<150)
[2016-09-14 04:24] LABS: Creatine Kinase 128 U/L (30-135)
[2016-09-14 04:38] LABS: Creatine Kinase MB 2.4 ng/mL (0.0-2.4); Troponin I <0.012 ng/mL (0.000-0.034)
--- NOTE | 2016-09-14 09:29 | P.CRDCN ---
<Lina [place] E - Last Filed: 09/14/16 10:53> History of Present Illness Consult date: 09/14/16 Requesting physician: Oren Smith Consult reason: sycope Chief complaint: Syncope History of present illness: This is a 41-year-old female with history of hypertension, nondiabetic , no hyperlipidemia, current smoker, anxiety, hypothyroidism, chronic back pain , who presents to the hospital following multiple syncopal episodes. According to the patient, she had a couple episodes prior to coming to the hospital. She states that she is always in a standing position when it occurs. According to her boyfriend, her eyes rolled back in her head, her face becomes whitish wong in color and her lips become pale, patient then passes out completely. She is alert and oriented on wakening, and is able to stand up shortly thereafter however it takes quite some time. She does state that there are occasions where she gets extremely dizzy prior to passing out, she has had episodes in the past. On one occasion she was at a concert standing in a crowded space. One year ago she also had an episode, at that time she was on antibiotics covering from a pneumonia. Patient states she recently had a pneumonia at this time as well and is currently on Bactrim for UTI. Patient states she also has been getting intermittent tightness in her chest, and states that she has not been sleeping well because she feels like her heart is racing extremely fast. She has attributed this to anxiety. This morning, patient was standing at the bedside getting ready to go to the bathroom, she became dizzy and fell back onto the bed. She was wearing a monitor at that time which showed a normal sinus rhythm with no acute changes. No blood pressure obtained at that time. Patient did have a nitroglycerin paste put on earlier this morning prior to this episode. EKG on arrival here showed a normal sinus rhythm with inferior Q waves. CT of the brain was negative. Chest x-ray normal. There is a clearing of a right middle lobe pneumonia as compared to her prior exam. Blood pressure on arrival here 140/90 with a heart rate in the 80s, 96% on room air. White blood cell count 12.5, hemoglobin 14.4, d-dimer 0.4. Potassium 4.0. BUN 15, creatinine 0.8. Troponins negative 3. TSH 1.3, free T4 1 0.3, free T3 3 0.6. UA positive for UTI. Toxicology positive for opiates, amphetamines, and benzodiazepines, patient does take [place] for chronic back pain, she is also on Ambien for sleep, Cymbalta and Xanax for anxiety.As of note, patient also takes Adipex -P for weight loss. Past Medical History Past Medical History: Asthma, Hypertension, Thyroid Disorder Additional Past Medical History / Comment(s): celiac,chronic back pain,pcos; diverticulitis History of Any Multi-Drug Resistant Organisms: None Reported, MRSA Date of last positivie culture/infection: 2007 MDRO Source:: leg Past Surgical History: Section, Cholecystectomy, Tonsillectomy Additional Past Surgical History / Comment(s): Abdominoplasty, devitated septum repair Past Anesthesia/Blood Transfusion Reactions: No Reported Reaction Past Psychological History: Anxiety Smoking Status: Current every day smoker Past Alcohol Use History: Occasional Past Drug Use History: None Reported - Past Family History Mother Family Medical History: No Reported History Medications and Allergies Home Medications Medication Instructions Recorded Confirmed Type Levothyroxine Sodium [Synthroid] 112 mcg PO DAILY 05/22/15 09/13/16 History Triamterene-Hctz 37.5-25Mg 1 tab PO DAILY 05/22/15 09/13/16 History [Maxzide 37.5-25] Naproxen 500 mg PO BID PRN 05/06/16 09/13/16 History Phentermine HCl [Adipex-P] 37.5 mg PO DAILY 05/06/16 09/13/16 History metFORMIN HCL [Glucophage] 500 mg PO BID 05/06/16 09/13/16 History ALPRAZolam [Xanax] 0.5 mg PO BID PRN 09/13/16 09/13/16 History DULoxetine HCL [Cymbalta] 30 mg PO DAILY 09/13/16 09/13/16 History HYDROcodone/APAP 10-325MG [[place] 1 tab PO BID PRN 09/13/16 09/13/16 History 10-325] Omeprazole 20 mg PO BID 09/13/16 09/13/16 History Sulfamethox-Tmp 800-160Mg [Bactrim 1 tab PO Q12HR 09/13/16 09/13/16 History DS 800-160 mg] Zolpidem [Ambien] 5 - 10 mg PO HS PRN 09/13/16 09/13/16 History Allergies Allergy/AdvReac Type Severity Reaction Status Date / Time gluten Allergy Intermediate Nausea & Verified 09/14/16 00:44 Vomiting & Diarrhea codeine Allergy Mild Itching Verified 09/13/16 21:35 Physical Exam Vitals: Vital Signs Temp Pulse Pulse Pulse Pulse Pulse Resp 09/14/16 08:10 64 20 09/14/16 08:00 98.3 F 68 71 66 16 09/14/16 04:00 97.2 F L 69 16 09/14/16 00:08 97.9 F 69 16 09/14/16 00:00 16 09/13/16 23:00 84 63 09/13/16 22:16 87 18 09/13/16 22:08 98.8 F 66 18 09/13/16 19:45 97.3 F L 87 16 BP BP BP BP BP Pulse Ox 09/14/16 08:10 119/50 97 09/14/16 08:00 119/63 123/69 123/72 95 09/14/16 04:00 116/65 97 09/14/16 00:08 135/87 96 09/14/16 00:00 09/13/16 23:00 135/80 132/70 133/73 100 09/13/16 22:16 148/65 100 09/13/16 22:08 151/85 100 09/13/16 19:45 143/91 96 Intake and Output 09/13/16 09/14/16 09/14/16 22:59 06:59 14:59 Intake Total 800 Output Total 1900 450 Balance -1100 -450 Intake: IV 800 Sodium Chloride 0.9% 1, 800 000 ml @ 100 mls/hr IV . Q10H STA Rx#:[id number] Output: Urine 1900 450 Other: Voiding Method Toilet # Voids 3 1 Weight 92.986 kg 92.7 kg PHYSICAL EXAMINATION: HEENT: Head is atraumatic, normocephalic. Pupils equal, round. Neck is supple. There is no elevated jugular venous pressure. HEART EXAMINATION: S1 and S2 systolic murmur is heard. CHEST EXAMINATION: Lungs are clear to auscultation and precussion. No chest wall tenderness is noted on palpation or with deep breathing. ABDOMEN: Soft, nontender. Bowel sounds are heard. No organomegaly noted. EXTREMITIES: 2+ peripheral pulses with no evidence of peripheral edema and no calf tenderness noted. NEUROLOGIC patient is awake, alert and oriented -3. . Results 09/13/16 21:04 09/13/16 21:04 Cardiac Enzymes 09/13/16 09/13/16 09/14/16 Range/Units 21:04 21:04 03:31 AST 32 (14-36) U/L CK-MB (CK-2) 3.0 H* 2.4 (0.0-2.4) ng/mL Troponin I <0.012 <0.012 (0.000-0.034) ng/mL Coagulation 09/13/16 Range/Units 21:04 PT 9.6 (9.0-12.0) sec APTT 23.3 (22.0-30.0) sec Lipids 09/14/16 Range/Units 03:31 Triglycerides 132 (<150) mg/dL Cholesterol 155 (<200) mg/dL HDL Cholesterol 45 (40-60) mg/dL CBC 09/13/16 Range/Units 21:04 WBC 12.5 H (3.8-10.6) k/uL RBC 5.00 (3.80-5.40) m/uL Hgb 14.4 (11.4-16.0) gm/dL Hct 44.1 (34.0-46.0) % Plt Count 302 (150-450) k/uL Comprehensive Metabolic Panel 09/13/16 Range/Units 21:04 Sodium 138 (137-145) mmol/L Potassium 4.0 (3.5-5.1) mmol/L Chloride 97 L (98-107) mmol/L Carbon Dioxide 27 (22-30) mmol/L BUN 15 (7-17) mg/dL Creatinine 0.80 (0.52-1.04) mg/dL Glucose 85 (74-99) mg/dL Calcium 10.0 (8.4-10.2) mg/dL AST 32 (14-36) U/L ALT 34 (9-52) U/L Alkaline Phosphatase 63 (38-126) U/L Total Protein 7.4 (6.3-8.2) g/dL Albumin 4.6 (3.5-5.0) g/dL Current Medications Generic Name Dose Route Start Last Admin Trade Name Freq PRN Reason Stop Dose Admin Aspirin 325 mg 09/14/16 09:00 Aspirin PO DAILY GUILLERMO Nitroglycerin 0.4 mg 09/13/16 22:13 09/13/16 22:19 Nitrostat SUBLINGUAL 0.4 mg ONCE PRN Administration Chest Pain Nitroglycerin 1 inch 09/14/16 00:00 09/14/16 06:37 Nitro-Bid Oint TOPICAL 1 inch Q6HR GUILLERMO Administration Nitroglycerin 0.4 mg 09/13/16 22:41 Nitrostat SUBLINGUAL Q5M PRN Chest Pain Sodium Chloride 10 ml 09/14/16 09:00 Saline Flush IV BID GUILLERMO Zolpidem Tartrate 5 mg 09/14/16 01:37 Ambien PO HS PRN for sleep Intake and Output 09/13/16 09/14/16 09/14/16 22:59 06:59 14:59 Intake Total 800 Output Total 1900 450 Balance -1100 -450 Intake: IV 800 Sodium Chloride 0.9% 1, 800 000 ml @ 100 mls/hr IV . Q10H STA Rx#:[id number] Output: Urine 1900 450 Other: Voiding Method Toilet # Voids 3 1 Weight 92.986 kg 92.7 kg 09/13/16 21:04 09/13/16 21:04 EKG Interpretations (text) EKG shows a normal sinus rhythm with inferior Q waves. Assessment and Plan Plan: Assessment and plan #1 syncope, rule out cardiac causes. We will continue to monitor for any tachycardia or bradycardia arrhythmias. We'll also check orthostatics. The patient is on a diuretic at home and is also currently on Bactrim for UTI. #2 hypertension, on Maxzide #3 hypothyroidism #4 diabetes #5 anxiety, on Cymbalta, Xanax, and Ambien #6 nicotine dependence #7 Chronic back pain, on [place] #8 atypical chest pain, troponins negative 3. EKG shows normal sinus rhythm with inferior Q waves Plan We'll obtain an echocardiogram with Doppler study. We will also continue to monitor for any tachycardia or bradycardia arrhythmias. We will check orthostatics. We will also hold the patient's Bactrim Adipex and Maxide as a potential contributing factor to her syncope. Continue Nitropaste Patient will also need a stress test at some point to rule out underlying coronary artery disease. Further recommendations to follow. DNP note has been reviewed, I agree with a documented findings and plan of care. Patient was seen and examined. <Lowell Lopes - Last Filed: 09/14/16 13:27> Physical Exam Vitals: Vital Signs Temp Pulse Pulse Pulse Pulse Pulse Resp 09/14/16 11:07 98.2 F 107 H 18 09/14/16 09:46 63 09/14/16 09:31 72 09/14/16 09:26 80 09/14/16 09:25 60 09/14/16 08:10 64 20 09/14/16 08:00 98.3 F 68 71 66 20 09/14/16 04:00 97.2 F L 69 16 09/14/16 00:08 97.9 F 69 16 09/14/16 00:00 16 09/13/16 23:00 84 63 09/13/16 22:16 87 18 09/13/16 22:08 98.8 F 66 18 09/13/16 19:45 97.3 F L 87 16 BP BP BP BP BP Pulse Ox 09/14/16 11:07 107/78 99 09/14/16 09:46 124/77 09/14/16 09:31 124/69 09/14/16 09:26 130/78 09/14/16 09:25 124/77 09/14/16 08:10 119/50 97 09/14/16 08:00 119/63 123/69 123/72 95 09/14/16 04:00 116/65 97 09/14/16 00:08 135/87 96 09/14/16 00:00 09/13/16 23:00 135/80 132/70 133/73 100 09/13/16 22:16 148/65 100 09/13/16 22:08 151/85 100 09/13/16 19:45 143/91 96 Intake and Output 09/13/16 09/14/16 09/14/16 22:59 06:59 14:59 Intake Total 800 1000 Output Total 1900 1350 Balance -1100 -350 Intake: IV 800 1000 Sodium Chloride 0.9% 1, 800 000 ml @ 100 mls/hr IV . Q10H STA Rx#:[id number] Sodium Chloride 0.9% 1, 1000 000 ml @ 999 mls/hr IV . Q1H1M ONE Rx#:[id number] Output: Urine 1900 1350 Other: Voiding Method Toilet Bedpan # Voids 3 1 Weight 92.986 kg 92.7 kg Results 09/13/16 21:04 09/13/16 21:04 Cardiac Enzymes 09/13/16 09/13/16 09/14/16 Range/Units 21:04 21:04 03:31 AST 32 (14-36) U/L CK-MB (CK-2) 3.0 H* 2.4 (0.0-2.4) ng/mL Troponin I <0.012 <0.012 (0.000-0.034) ng/mL 09/14/16 Range/Units 08:46 AST (14-36) U/L CK-MB (CK-2) 1.9 (0.0-2.4) ng/mL Troponin I <0.012 (0.000-0.034) ng/mL Coagulation 09/13/16 Range/Units 21:04 PT 9.6 (9.0-12.0) sec APTT 23.3 (22.0-30.0) sec Lipids 09/14/16 Range/Units 03:31 Triglycerides 132 (<150) mg/dL Cholesterol 155 (<200) mg/dL HDL Cholesterol 45 (40-60) mg/dL CBC 09/13/16 Range/Units 21:04 WBC 12.5 H (3.8-10.6) k/uL RBC 5.00 (3.80-5.40) m/uL Hgb 14.4 (11.4-16.0) gm/dL Hct 44.1 (34.0-46.0) % Plt Count 302 (150-450) k/uL Comprehensive Metabolic Panel 09/13/16 Range/Units 21:04 Sodium 138 (137-145) mmol/L Potassium 4.0 (3.5-5.1) mmol/L Chloride 97 L (98-107) mmol/L Carbon Dioxide 27 (22-30) mmol/L BUN 15 (7-17) mg/dL Creatinine 0.80 (0.52-1.04) mg/dL Glucose 85 (74-99) mg/dL Calcium 10.0 (8.4-10.2) mg/dL AST 32 (14-36) U/L ALT 34 (9-52) U/L Alkaline Phosphatase 63 (38-126) U/L Total Protein 7.4 (6.3-8.2) g/dL Albumin 4.6 (3.5-5.0) g/dL Current Medications Generic Name Dose Route Start Last Admin Trade Name Freq PRN Reason Stop Dose Admin Alprazolam 0.5 mg 09/14/16 10:13 Xanax PO BID PRN Anxiety Aspirin 325 mg 09/14/16 09:00 09/14/16 11:13 Aspirin PO 325 mg DAILY GUILLERMO Administration Duloxetine HCl 30 mg 09/15/16 09:00 Cymbalta PO DAILY GUILLERMO Sodium Chloride 1,000 mls @ 50 mls/hr 09/14/16 11:00 09/14/16 11:57 Saline 0.9% IV 50 mls/hr .Q20H GUILLERMO Administration Levothyroxine Sodium 112 mcg 09/15/16 06:30 09/14/16 11:10 Synthroid PO 112 mcg DAILY@0630 GUILLERMO Administration Nitroglycerin 0.4 mg 09/13/16 22:13 09/13/16 22:19 Nitrostat SUBLINGUAL 0.4 mg ONCE PRN Administration Chest Pain Nitroglycerin 0.4 mg 09/13/16 22:41 Nitrostat SUBLINGUAL Q5M PRN Chest Pain Pantoprazole Sodium 40 mg 09/14/16 17:30 Protonix PO AC-BID GUILLERMO Sodium Chloride 10 ml 09/14/16 09:00 09/14/16 11:02 Saline Flush IV Not Given BID GUILLERMO Zolpidem Tartrate 5 mg 09/14/16 01:37 Ambien PO HS PRN for sleep Intake and Output 09/13/16 09/14/16 09/14/16 22:59 06:59 14:59 Intake Total 800 1000 Output Total 1900 1350 Balance -1100 -350 Intake: IV 800 1000 Sodium Chloride 0.9% 1, 800 000 ml @ 100 mls/hr IV . Q10H STA Rx#:[id number] Sodium Chloride 0.9% 1, 1000 000 ml @ 999 mls/hr IV . Q1H1M ONE Rx#:[id number] Output: Urine 1900 1350 Other: Voiding Method Toilet Bedpan # Voids 3 1 Weight 92.986 kg 92.7 kg 09/13/16 21:04 09/13/16 21:04
[2016-09-14 09:36] LABS: Creatine Kinase 118 U/L (30-135)
[2016-09-14 09:47] LABS: Creatine Kinase MB 1.9 ng/mL (0.0-2.4); Troponin I <0.012 ng/mL (0.000-0.034)
[2016-09-14] MEDS ORDERED: ALPRAZolam 0.5 MG TAB PO PRN (10:13)
--- NOTE | 2016-09-14 10:46 | ECHOF ---
Referral Reason:syncope MEASUREMENTS -------- HEIGHT: 165.1 cm WEIGHT: 92.5 kg BP: 119/50 IVSd: 0.9 cm (0.6 - 1.1) LVIDd: 3.8 cm (3.9 - 5.3) LVPWd: 1.0 cm (0.6 - 1.1) IVSs: 1.7 cm LVIDs: 2.8 cm LVPWs: 1.4 cm Ao Diam: 3.3 cm (2.0 - 3.7) AV Cusp: 2.2 cm (1.5 - 2.6) LA Diam: 2.5 cm (2.7 - 3.8) MV EXCURSION: 13.883 mm (> 18.000) MV EF SLOPE: 69 mm/s (70 - 150) EPSS: 0.8 cm MV E Teofilo: 0.72 m/s MV DecT: 187 ms MV A Teofilo: 0.60 m/s MV E/A Ratio: 1.20 RAP: 5.00 mmHg RVSP: 18.96 mmHg FINDINGS -------- Sinus rhythm. This was a technically good study. Left ventricular wall thickness is normal. Overall left ventricular systolic function is normal with, an EF between 55 - 60 %. The right ventricle is normal in size and function. The left atrium is normal in size. The right atrium is normal in size. The aortic valve is trileaflet, and appears structurally normal. No aortic stenosis or regurgitation. The mitral valve leaflets are mildly thickened. There is trace mitral regurgitation. Trace tricuspid regurgitation present. The right ventricular systolic pressure, as measured by Doppler, is 18.96mmHg. Pulmonic valve appears structurally normal. The aortic root size is normal. The pericardium is normal. CONCLUSIONS -------- 1. Sinus rhythm. 2. There is trace mitral regurgitation. 3. Trace tricuspid regurgitation present. 4. The right ventricular systolic pressure, as measured by Doppler, is 18.96mmHg. 5. Pulmonic valve appears structurally normal. 6. The aortic root size is normal. 7. The pericardium is normal. 8. This was a technically good study. 9. Left ventricular wall thickness is normal. 10. Overall left ventricular systolic function is normal with, an EF between 55 - 60 %. 11. The right ventricle is normal in size and function. 12. The left atrium is normal in size. 13. The right atrium is normal in size. 14. The aortic valve is trileaflet, and appears structurally normal. No aortic stenosis or regurgitation. 15. The mitral valve leaflets are mildly thickened. METAL BURNISHER: Rehana Lopez RDCS
[2016-09-14] MEDS ORDERED: SODIUM CHLORIDE 0.9% 1,000 ML IV ONE (10:58)
[2016-09-14] MEDS: PANTOPRAZOLE 40 MG TABLET PO SCH ×2 (11:10→16:18)
[2016-09-14] MEDS: LEVOTHYROXINE 112 MCG TAB PO SCH (11:10)
[2016-09-14] MEDS: ASPIRIN 325 MG TAB PO SCH (11:13)
[2016-09-14] MEDS: SODIUM CHLORIDE 0.9% 1,000 ML IV SCH (11:57)
[2016-09-14 14:31] LABS: % Iron Saturation 17.2 % (20-50)
--- NOTE | 2016-09-14 19:07 | HP ---
DATE OF ADMISSION: REASON FOR ADMISSION: Syncope. HISTORY OF PRESENT ILLNESS: This is a 41-year-old woman with history of hypertension, obesity, ongoing tobacco use, comes into the hospital with complaints of a syncopal episode. Patient states that she initially had one episode but a year ago while she was being treated for episode of acute cystitis. Patient states that she was talking to her at that time. Noted that she became slightly confused. She states that she felt like she had a feeling of her body being taken over and feeling light; thereafter, lost consciousness. Patient recuperate a few minutes later with significant amount of diaphoresis. Patient stated that she felt she had some pressure at the time. Again she had another episode a few weeks ago while she was at a bar where her vision went blurry and did not improve for a few minutes. Did note her extremities getting cold and had an episode of diaphoresis as well. At that time did not lose consciousness. The last episode which brought her to the hospital was day prior to admission. Patient states that over the last few days she has been having some complaints of urinary burning, has been started on Bactrim. She had one episode where she noted a similar presentation where she lost consciousness, fell backwards and noted diaphoresis at that time with cold extremities. EKG in the emergency room did not reveal any arrhythmogenic activity. Telemetry monitoring so far did not reveal any abnormalities. The patient denies having any headaches, blurry vision, nausea, vomiting, diarrhea, or urinary urgency or frequency at this time. Patient's symptoms are not persistent and are more with change in her posture. UA was positive for opiates, benzodiazepines and amphetamines. Past medical history includes asthma, hypertension, thyroid disorder, obesity and ongoing tobacco use and chronic back pain. Past surgical history includes cholecystectomy, tonsillectomy, , abdominoplasty and deviated septal repair. SOCIAL HISTORY: Ongoing tobacco use, 1/2 pack of cigarettes daily. Occasional and social alcohol use. Denies any illicit drug use. FAMILY HISTORY: No significant family history reported. REVIEW OF SYSTEMS: Fourteen-point review of system was done; none pertinent other than what was mentioned above. Home medications include: Synthroid, Maxzide, Naprosyn, Adipex, Glucophage, Xanax, Cymbalta, [place], omeprazole, Bactrim, Ambien. ALLERGIES: GLUTEN AND CODEINE. Medication doses were reviewed and appropriately reconciled on admission. PHYSICAL EXAM: VITALS: Temperature 98.3, heart rate 60, respiratory rate 16, blood pressure is about 135/80. Orthostatics were attempted; however, was not able to be performed appropriately as patient was dizzy on standing up. GENERALLY: Patient appears to be alert, oriented x3. HEENT: The pupils are equal and reactive to light and accommodation. HEART: A faint systolic murmur is appreciated best at the aortic area. S1, S2 heard, regular rate and rhythm. LUNGS: Good air entry. No wheezing or rhonchi noted. ABDOMINAL EXAM: Soft, nontender, no organomegaly appreciated. GENITOURINARY: No Bey in place. EXTREMITIES: Pulses can be palpated distally. Denies any tenderness on gross palpation. SKIN: On a gross skin exam does not appear to have any purpura or any skin rashes that were noted. NEUROLOGICALLY: Grossly cranial nerves 2-12 intact. No motor or sensory deficits noted. LABORATORY DATA: Today includes hemoglobin 14.4, hematocrit 44.1, white count 12.5, platelets of 302. Sodium 138, potassium 4, chloride 97, bicarb 27, BUN 15, creatinine 0.80. EKG as interpreted above. ASSESSMENT AND PLAN: 1. Syncope likely vasovagal in nature. This could be from a combination of recent illness, use of medications including benzodiazepines, opiate and amphetamines. Does not appear to be neurogenic cause. 2. Hypertension. 3. Hypothyroidism. 4. Obesity on Adipex. 5. Nicotine ongoing tobacco use. 6. Chronic back pain. 7. Atypical chest pain, acute coronary syndrome is ruled out. PLAN: Continue telemetry monitoring. We will give the patient a normal saline bolus; thereafter, attempt clinical symptoms. Discussed with the R.N. to repeat orthostatics at that time. Patient would have syndrome consistent with being slightly hypovolemic as patient is on a diuretic, was on Adipex which did decrease her appetite in the recent times as well. Continue telemetry monitoring. Hold off on Bactrim, Maxzide, and Adipex at this time. Encourage ambulation. Patient does complain of some skin discoloration in the recent times and denies it secondary to suntanning. Will obtain laboratory values including a ferritin and serial plasma. However, that would not be the cause of the current admission. Repeat orthostatics and clinical evaluation tomorrow.
[2016-09-15 06:11] LABS: Basophils # (A) 0.1 k/uL (0-0.2); Basophils % (A) 1 %; CH 29.4; Eosinophils # (A) 0.4 k/uL (0-0.7); Eosinophils % (A) 5 %; HDW 2.47; HGB 13.1 gm/dL (11.4-16.0); Luc # (Auto) 0.21; Luc % (Auto) 2; Lymphocytes # (A) 2.6 k/uL (1.0-4.8); Lymphocytes % (A) 29 %; MCH 28.6 pg (25.0-35.0); MCV 89.4 fL (80.0-100.0); Mean Platelet Volume 6.4; Monocytes # (A) 0.4 k/uL (0-1.0); Monocytes % (A) 5 %; Neutrophils % (A) 57 %; RBC 4.58 m/uL (3.80-5.40); RDW 13.2 % (11.5-15.5); WBC 8.7 k/uL (3.8-10.6); WBC (Perox) 9.59
[2016-09-15] MEDS: LEVOTHYROXINE 112 MCG TAB PO SCH (07:15)
[2016-09-15] MEDS: PANTOPRAZOLE 40 MG TABLET PO SCH (07:16)
[2016-09-15] MEDS: SODIUM CHLORIDE 0.9% 1,000 ML IV SCH (07:16)
[2016-09-15] MEDS ORDERED: DULoxetine HCL 30 MG CAPSULE.DR PO SCH (09:00)
[2016-09-15] MEDS ORDERED: TRIAMTERENE-HCTZ 37.5-25MG 1 EACH TAB PO SCH (09:00)
[2016-09-15] MEDS: ASPIRIN 325 MG TAB PO SCH (09:09)
[2016-09-15 11:29] VITALS: BP 121/77; PULSE 70; RESP 20; TEMP 98.6
--- NOTE | 2016-09-15 17:44 | P.DS ---
Providers Date of admission: 09/13/16 22:41 Attending physician: Oren Smith MD Consults: 09/13/16 22:41 Consult Physician Urgent Consulting Provider: Mikayla Bailey Consult Reason/Comments: syncope Do you want consulting provider notified?: Yes Primary care physician: Tramaine Velazco [facility] Course: HISTORY OF PRESENT ILLNESS: This is a 41-year-old woman with history of hypertension, obesity, ongoing tobacco use, comes into the hospital with complaints of a syncopal episode. Patient states that she initially had one episode but a year ago while she was being treated for episode of acute cystitis. Patient states that she was talking to her at that time. Noted that she became slightly confused. She states that she felt like she had a feeling of her body being taken over and feeling light; thereafter, lost consciousness. Patient recuperate a few minutes later with significant amount of diaphoresis. Patient stated that she felt she had some pressure at the time. Again she had another episode a few weeks ago while she was at a bar where her vision went blurry and did not improve for a few minutes. Did note her extremities getting cold and had an episode of diaphoresis as well. At that time did not lose consciousness. The last episode which brought her to the hospital was day prior to admission. Patient states that over the last few days she has been having some complaints of urinary burning, has been started on Bactrim. She had one episode where she noted a similar presentation where she lost consciousness, fell backwards and noted diaphoresis at that time with cold extremities. EKG in the emergency room did not reveal any arrhythmogenic activity. Telemetry monitoring so far did not reveal any abnormalities. The patient denies having any headaches, blurry vision, nausea, vomiting, diarrhea, or urinary urgency or frequency at this time. Patient's symptoms are not persistent and are more with change in her posture. UA was positive for opiates, benzodiazepines and amphetamines. Past medical history includes asthma, hypertension, thyroid disorder, obesity and ongoing tobacco use and chronic back pain. 09/15/16 doing well no more symptoms PHYSICAL EXAM: VITALS: Temperature 98.3, heart rate 60, respiratory rate 16, blood pressure is about 135/80. Orthostatics were attempted; however, was not able to be performed appropriately as patient was dizzy on standing up. GENERALLY: Patient appears to be alert, oriented x3. HEENT: The pupils are equal and reactive to light and accommodation. HEART: A faint systolic murmur is appreciated best at the aortic area. S1, S2 heard, regular rate and rhythm. LUNGS: Good air entry. No wheezing or rhonchi noted. ABDOMINAL EXAM: Soft, nontender, no organomegaly appreciated. GENITOURINARY: No Bey in place. EXTREMITIES: Pulses can be palpated distally. Denies any tenderness on gross palpation. SKIN: On a gross skin exam does not appear to have any purpura or any skin rashes that were noted. NEUROLOGICALLY: Grossly cranial nerves 2-12 intact. No motor or sensory deficits noted. ASSESSMENT AND PLAN: 1. Syncope likely vagal in nature with positive orthostatics This could be from a combination of recent illness, use of medications including benzodiazepines, opiate and amphetamines. Does not appear to be neurogenic cause. improved since admission hold off on maxide, if pt needs anti HTN meds, may need to considered to be started on amlodipine 2. Hypertension. 3. Hypothyroidism. 4. Obesity on Adipex. 5. Nicotine ongoing tobacco use. 6. Chronic back pain. 7. Atypical chest pain, acute coronary syndrome is ruled out. Plan - Discharge Summary Discharge Medication List RX: Levothyroxine Sodium [Synthroid] 112 mcg PO DAILY 05/22/15 [History] RX: Naproxen 500 mg PO BID PRN 05/06/16 [History] RX: metFORMIN HCL [Glucophage] 500 mg PO BID 05/06/16 [History] RX: ALPRAZolam [Xanax] 0.5 mg PO BID PRN 09/13/16 [History] RX: DULoxetine HCL [Cymbalta] 30 mg PO DAILY 09/13/16 [History] RX: HYDROcodone/APAP 10-325MG [[place] 10-325] 1 tab PO BID PRN 09/13/16 [History] RX: Omeprazole 20 mg PO BID 09/13/16 [History] RX: Zolpidem [Ambien] 5 - 10 mg PO HS PRN 09/13/16 [History] Follow up Appointment(s)/Referral(s): Lowell Lopes MD [STAFF PHYSICIAN] - 10/13/16 6:15 pm Lorraine Redd MD [Primary Care Provider] - 09/17/16 1:10 pm Patient Instructions/Handouts: Syncope (DC) Discharge Disposition: HOME SELF-CARE
== END 2016-09-15 15:50 | disposition home or self-care (01) ==
LOC: EC 19:44 → 6SEL 22:41 → INTOOBSV 22:41
PROVIDERS: ADMIT Internal Medicine; ATTEND Internal Medicine
DX: R55 Syncope and collapse (principal); I10 Essential (primary) hypertension; E03.9 Hypothyroidism, unspecified; E11.9 Type 2 diabetes mellitus without complications; E28.2 Polycystic ovarian syndrome; E66.9 Obesity, unspecified; F17.210 Nicotine dependence, cigarettes, uncomplicated; F41.9 Anxiety disorder, unspecified; G89.29 Other chronic pain; J45.909 Unspecified asthma, uncomplicated; M54.9 Dorsalgia, unspecified; R07.89 Other chest pain; Z79.899 Other long term (current) drug therapy; Z79.84 Long term (current) use of oral hypoglycemic drugs; Z88.5 Allergy status to narcotic agent; Z86.14 Personal history of Methicillin resistant Staphylococcus aureus infection; Z68.34 Body mass index [BMI] 34.0-34.9, adult
CPT/HCPCS: 96361 ×3; 96360; 99285; 36415; 93005; 93306; 85379; 84439; 84481; 80061; 80053; 82728; 82550 ×2; 82553 ×2; 83540; 83550; 83735; 84443; 84484 ×2; 85025 ×2; 85610; 85730; 81001; 81025; 82390; 80306; 71020; 70450; G0378 ×3

== ENCOUNTER → 2016-09-29 | Outpatient (CLI) | payer OTHER ==
--- NOTE | 2016-09-29 07:39 | US ---
EXAMINATION TYPE: US kidneys/renal and bladder DATE OF EXAM: 09/29/2016 COMPARISON: CT 2017 CLINICAL HISTORY: N39.0 FREQUENT URINARY TRACT INFECTIONS EXAM MEASUREMENTS: Right Kidney: 10.7 x 6.0 x 5.6 cm Left Kidney: 10.2 x 5.3 x 5.5 cm Post Void Residual Volume: 6.7 mL Right Kidney: No hydronephrosis or masses seen Left Kidney: No hydronephrosis or masses seen Bladder: wnl Bilateral Jets seen: Yes Normal Post Void Residual: Yes There is no evidence for hydronephrosis at this point in time. No nephrolithiasis is seen. No faye s are identified. The urinary bladder is anechoic. Bilateral ureteral jets are seen. IMPRESSION: Unremarkable evaluation.
== END | disposition home or self-care (01) ==
LOC: RADUSWWP 07:06
PROVIDERS: ATTEND Internal Medicine
DX: N39.0 Urinary tract infection, site not specified (principal)
CPT/HCPCS: 76770

== ENCOUNTER 2017-04-15 21:29 | Observation (INO) | payer OTHER ==
[2017-04-15] MEDS ORDERED: SODIUM CHLORIDE 0.9% 1,000 ML BAG ONE (23:30)
[2017-04-16] MEDS ORDERED: KETOROLAC 30 MG/ML 1 ML VIAL ONE (00:06)
[2017-04-16] MEDS ORDERED: MORPHINE SULFATE 5 MG/ML SYRINGE ONE (00:06)
[2017-04-16 03:50] VITALS: BMI 33.8
[2017-04-16] MEDS ORDERED: traZODone HCL 50 MG TAB PO SCH (04:04)
[2017-04-16] MEDS ORDERED: ALPRAZolam 0.5 MG TAB PO PRN (04:04)
[2017-04-16] MEDS ORDERED: ACETAMINOPHEN TAB 325 MG TAB PO PRN (04:05)
[2017-04-16] MEDS ORDERED: MORPHINE SULFATE 5 MG/ML SYRINGE IVP PRN (04:05)
[2017-04-16] MEDS ORDERED: ONDANSETRON 4 MG/2 ML VIAL IVP PRN (04:07)
[2017-04-16] MEDS ORDERED: LEVOTHYROXINE 112 MCG TAB PO SCH (06:30)
[2017-04-16] MEDS ORDERED: metFORMIN 500 MG TAB PO SCH (07:30)
[2017-04-16 08:03] LABS: Basophils # (A) 0.1 k/uL (0-0.2); Basophils % (A) 1 %; CH 29.2; CHCM 33.3; Eosinophils # (A) 0.4 k/uL (0-0.7); Eosinophils % (A) 5 %; HCT 37.1 % (34.0-46.0); HDW 2.46; Luc # (Auto) 0.15; Luc % (Auto) 2; Lymphocytes # (A) 2.6 k/uL (1.0-4.8); Lymphocytes % (A) 35 %; MCH 28.5 pg (25.0-35.0); MCHC 32.3 g/dL (31.0-37.0); MCV 88.2 fL (80.0-100.0); Mean Platelet Volume 6.5; Monocytes # (A) 0.4 k/uL (0-1.0); Monocytes % (A) 5 %; Neutrophils # (A) 3.8 k/uL (1.3-7.7); Neutrophils % (A) 52 %; RBC 4.21 m/uL (3.80-5.40); RDW 12.9 % (11.5-15.5); WBC 7.3 k/uL (3.8-10.6); WBC (Perox) 7.48
[2017-04-16 08:04] VITALS: RESP 16
[2017-04-16 08:52] LABS: ALT 41 U/L (9-52); AST 38 U/L (14-36); Alkaline Phosphatase 46 U/L (38-126); Anion Gap 4 mmol/L; Blood Urea Nitrogen 15 mg/dL (7-17); Calcium 8.7 mg/dL (8.4-10.2); Carbon Dioxide 28 mmol/L (22-30); Chloride 105 mmol/L (98-107); Glucose 85 mg/dL (74-99); Non-African American GFR(MDRD) >60 (>60 ml/min/1.73 sqM); Potassium 4.3 mmol/L (3.5-5.1); Sodium 137 mmol/L (137-145); Total Bilirubin 0.2 mg/dL (0.2-1.3)
[2017-04-16] MEDS ORDERED: lamoTRIgine 25 MG TAB PO SCH (09:00)
--- NOTE | 2017-04-16 09:08 | CT ---
EXAMINATION TYPE: CT abdomen pelvis w con DATE OF EXAM: 04/16/2017 COMPARISON: May 06, 2016 HISTORY: Abdominal pain CT DLP: 987 mGycm Automated exposure control for dose reduction was used. TECHNIQUE: Helical acquisition of images was performed from the lung bases through the pelvis. CONTRAST: Axial CT images were obtained of the abdomen and pelvis after administration of 100 mL Omnipaque 300. Coronal and sagittal reformatted images were reviewed at the workstation. FINDINGS: LUNG BASES: No significant abnormality is appreciated. LIVER/GB: Liver is unremarkable. Surgical clips are identified in the gallbladder fossa. PANCREAS: No significant abnormality is seen. SPLEEN: No significant abnormality is seen. ADRENALS: No significant abnormality is seen. KIDNEYS: No significant abnormality is seen. FREE AIR: No free air is visualized. RETROPERITONEAL ADENOPATHY: None visualized REPRODUCTIVE ORGANS: Uterus is present. An intrauterine contraceptive device is noted. URINARY BLADDER: No significant abnormality is seen. PELVIC ADENOPATHY: None visualized. OSSEOUS STRUCTURES: No significant abnormality is seen. BOWEL: Scattered diverticula are seen throughout the colon. Previous area pericolonic fat stranding left hemipelvis is been resolved. No definite pericolonic inflammatory changes are identified. There is a normal appendix seen. IMPRESSION: NO ACUTE ABNORMALITY IS IDENTIFIED. DIVERTICULOSIS IS AGAIN NOTED.
[2017-04-16] MEDS: SODIUM CHLORIDE 0.9% 1,000 ML IV SCH ×2 (09:39→12:12)
[2017-04-16] MEDS ORDERED: KETOROLAC 30 MG/ML 1 ML VIAL IVP PRN (11:44)
[2017-04-16] MEDS ORDERED: HYDROcodone/APAP 10-325MG 1 EACH TAB PO PRN (11:53)
--- NOTE | 2017-04-16 11:54 | P.GSCN ---
History of Present Illness Consult date: 04/16/17 History of present illness: 42-year-old female presents to the emergency department complaining of abdominal and right upper quadrant pain. She states that the pain started approximately 1 week ago and has been getting worse over time. She denies any nausea and vomiting. She denies any change in appetite. She denies any change in bowel function. She states that her only abdominal surgery has been a cholecystectomy which was approximately 15 years ago. She states that she did go to her chiropractor with this pain started and that an adjustment did not resolve her pain. She states that pain medication does help with the pain. She states that the pain does radiate to the right side of her back. She denies any fevers, chills, chest pain or shortness of breath. She denies any recent alcohol binge. She denies any urinary symptoms, no urinary urgency or burning or blood in urine. Review of Systems All systems: negative Past Medical History Past Medical History: Asthma, Hypertension, Thyroid Disorder Additional Past Medical History / Comment(s): celiac,chronic back pain,pcos; diverticulitis History of Any Multi-Drug Resistant Organisms: None Reported, MRSA Year Discovered:: 2007 MDRO Source:: leg Past Surgical History: Section, Cholecystectomy, Tonsillectomy Additional Past Surgical History / Comment(s): Abdominoplasty, devitated septum repair Past Anesthesia/Blood Transfusion Reactions: No Reported Reaction Past Psychological History: Anxiety, Depression Smoking Status: Current every day smoker Past Alcohol Use History: Occasional Past Drug Use History: None Reported - Past Family History Mother Family Medical History: No Reported History Medications and Allergies Home Medications Medication Instructions Recorded Confirmed Type Levothyroxine Sodium [Synthroid] 112 mcg PO DAILY 05/22/15 04/16/17 History metFORMIN HCL [Glucophage] 500 mg PO BID 05/06/16 04/16/17 History ALPRAZolam [Xanax] 0.5 mg PO BID PRN 09/13/16 04/16/17 History HYDROcodone/APAP 10-325MG [[place] 1 tab PO BID PRN 09/13/16 04/16/17 History 10-325] Zolpidem [Ambien] 5 - 10 mg PO HS PRN 09/13/16 04/16/17 History Allergies Allergy/AdvReac Type Severity Reaction Status Date / Time gluten Allergy Intermediate Nausea & Verified 09/14/16 00:44 Vomiting & Diarrhea codeine Allergy Mild Itching Verified 09/13/16 21:35 Surgical - Exam Osteopathic Statement: *. No significant issues noted on an osteopathic structural exam other than those noted in the History and Physical/Consult. Vital Signs Temp Pulse Resp BP Pulse Ox 98.0 F 58 L 18 138/86 99 04/16/17 03:00 04/16/17 03:00 04/16/17 03:00 04/16/17 03:00 04/16/17 03:00 - General well developed, well nourished, no distress - Eyes PERRL, normal ocular movement - ENT normal nares, normal mucosa, no hearing loss - Neck no masses, no bruits, trachea midline, no lymphadectomy - Respiratory normal respiratory effort - Cardiovascular Rhythm: regular Heart Sounds: normal: S1, S2 - Abdomen Abdomen: soft, non tender, no masses, no guarding, no rebound, no distended - Integumentary no rash, no growths, no abnormal pigmentation - Neurologic normal coordination, normal sensation - Musculoskeletal normal gait - Psychiatric oriented to time, oriented to person, oriented to place, speech is normal, memory intact Results - Labs 04/16/17 07:39 04/16/17 07:39 Abnormal Lab Results - Last 24 Hours (Table) 04/16/17 Range/Units 07:39 AST 38 H (14-36) U/L Total Protein 6.0 L (6.3-8.2) g/dL Albumin 3.4 L (3.5-5.0) g/dL Diabetes panel 04/16/17 Range/Units 07:39 Sodium 137 (137-145) mmol/L Potassium 4.3 (3.5-5.1) mmol/L Chloride 105 (98-107) mmol/L Carbon Dioxide 28 (22-30) mmol/L BUN 15 (7-17) mg/dL Creatinine 0.74 (0.52-1.04) mg/dL Glucose 85 (74-99) mg/dL Calcium 8.7 (8.4-10.2) mg/dL AST 38 H (14-36) U/L ALT 41 (9-52) U/L Alkaline Phosphatase 46 (38-126) U/L Total Protein 6.0 L (6.3-8.2) g/dL Albumin 3.4 L (3.5-5.0) g/dL Calcium panel 04/16/17 Range/Units 07:39 Calcium 8.7 (8.4-10.2) mg/dL Albumin 3.4 L (3.5-5.0) g/dL Pituitary panel 04/16/17 Range/Units 07:39 Sodium 137 (137-145) mmol/L Potassium 4.3 (3.5-5.1) mmol/L Chloride 105 (98-107) mmol/L Carbon Dioxide 28 (22-30) mmol/L BUN 15 (7-17) mg/dL Creatinine 0.74 (0.52-1.04) mg/dL Glucose 85 (74-99) mg/dL Calcium 8.7 (8.4-10.2) mg/dL Adrenal panel 04/16/17 Range/Units 07:39 Sodium 137 (137-145) mmol/L Potassium 4.3 (3.5-5.1) mmol/L Chloride 105 (98-107) mmol/L Carbon Dioxide 28 (22-30) mmol/L BUN 15 (7-17) mg/dL Creatinine 0.74 (0.52-1.04) mg/dL Glucose 85 (74-99) mg/dL Calcium 8.7 (8.4-10.2) mg/dL Total Bilirubin 0.2 (0.2-1.3) mg/dL AST 38 H (14-36) U/L ALT 41 (9-52) U/L Alkaline Phosphatase 46 (38-126) U/L Total Protein 6.0 L (6.3-8.2) g/dL Albumin 3.4 L (3.5-5.0) g/dL - Imaging CT scan - abdomen: report reviewed CT scan - pelvis: report reviewed (Report of CT abdomen and pelvis was reviewed. There is no acute process noted.) Assessment and Plan Plan: 42-year-old female with epigastric and right upper quadrant abdominal pain. - Lipase has decreased from 900s to 134 - CT of the abdomen and pelvis was reviewed, no acute findings - no pancreatic findings - Laboratory values reviewed, no leukocytosis and improvement in lipase is noted - Cause of pain likely nonsurgical - Attempt Toradol for pain control - Begin clear liquid diet, if she tolerates can advance as tolerated - Medical management
[2017-04-16 12:06] VITALS: BP 115/66; PULSE 67; TEMP 97.5
[2017-04-16 13:23] LABS: Basophils # (A) 0.1 k/uL (0-0.2); Basophils % (A) 1 %; CH 29.4; CHCM 33.5; Eosinophils # (A) 0.4 k/uL (0-0.7); Eosinophils % (A) 4 %; HCT 41.6 % (34.0-46.0); HDW 2.45; HGB 13.6 gm/dL (11.4-16.0); Luc # (Auto) 0.24; Luc % (Auto) 2; Lymphocytes # (A) 3.5 k/uL (1.0-4.8); Lymphocytes % (A) 35 %; MCH 28.7 pg (25.0-35.0); MCHC 32.6 g/dL (31.0-37.0); MCV 88.2 fL (80.0-100.0); Mean Platelet Volume 6.5; Monocytes # (A) 0.5 k/uL (0-1.0); Monocytes % (A) 5 %; Neutrophils # (A) 5.2 k/uL (1.3-7.7); Neutrophils % (A) 53 %; RBC 4.72 m/uL (3.80-5.40); WBC 9.9 k/uL (3.8-10.6); WBC (Perox) 9.38
[2017-04-16 15:28] LABS: ALT 24 U/L (9-52); AST 25 U/L (14-36); Alkaline Phosphatase 53 U/L (38-126); Anion Gap 10 mmol/L; Blood Urea Nitrogen 18 mg/dL (7-17); Calcium 9.8 mg/dL (8.4-10.2); Carbon Dioxide 30 mmol/L (22-30); Chloride 100 mmol/L (98-107); Glucose 75 mg/dL (74-99); Non-African American GFR(MDRD) >60 (>60 ml/min/1.73 sqM); Potassium 4.4 mmol/L (3.5-5.1); Sodium 140 mmol/L (137-145); Total Bilirubin 0.2 mg/dL (0.2-1.3)
--- NOTE | 2017-04-16 15:37 | P.HPIM ---
History of Present Illness 42-year-old female presents to the emergency department complaining of abdominal and right upper quadrant pain. She states that the pain started approximately 1 week ago and has been getting worse over time. She denies any nausea and vomiting. She denies any change in appetite. She denies any change in bowel function. She states that her only abdominal surgery has been a cholecystectomy which was approximately 15 years ago. She states that she did go to her chiropractor with this pain started and that an adjustment did not resolve her pain. She states that pain medication does help with the pain. She states that the pain does radiate to the right side of her back. She denies any fevers, chills, chest pain or shortness of breath. She denies any recent alcohol binge. She denies any urinary symptoms, no urinary urgency or burning or blood in urine. Etiology of her abdominal pain is on on CAT scan of the abdomen didn't show any significant abnormality patient was evaluated by surgery as well. Patient will be discharged on tramadol as there is a possibility of pain which is musculoskeletal and Prilosec for possibility of gastritis Review of Systems REVIEW OF SYSTEMS: CONSTITUTIONAL: No fever, no malaise, no fatigue. HEENT: No recent visual problems or hearing problems. Denied any sore throat. CARDIOVASCULAR: No chest pain, orthopnea, PND, no palpitations, no syncope. PULMONARY: No shortness of breath, no cough, no hemoptysis. GASTROINTESTINAL: No diarrhea, no nausea, no vomiting, NEUROLOGICAL: No headaches, no weakness, no numbness. HEMATOLOGICAL: Denies any bleeding or petechiae. GENITOURINARY: Denies any burning micturition, frequency, or urgency. MUSCULOSKELETAL/RHEUMATOLOGICAL: Denies any joint pain, swelling, or any muscle pain. ENDOCRINE: Denies any polyuria or polydipsia. The rest of the 14-point review of systems is negative. Past Medical History Past Medical History: Asthma, Hypertension, Thyroid Disorder Additional Past Medical History / Comment(s): celiac,chronic back pain,pcos; diverticulitis History of Any Multi-Drug Resistant Organisms: None Reported, MRSA Date of last positivie culture/infection: 2007 MDRO Source:: leg Past Surgical History: Section, Cholecystectomy, Tonsillectomy Additional Past Surgical History / Comment(s): Abdominoplasty, devitated septum repair Past Anesthesia/Blood Transfusion Reactions: No Reported Reaction Past Psychological History: Anxiety, Depression Smoking Status: Current every day smoker Past Alcohol Use History: Occasional Past Drug Use History: None Reported - Past Family History Mother Family Medical History: No Reported History Medications and Allergies Home Medications Medication Instructions Recorded Confirmed Type Levothyroxine Sodium [Synthroid] 112 mcg PO DAILY 05/22/15 04/16/17 History metFORMIN HCL [Glucophage] 500 mg PO BID 05/06/16 04/16/17 History ALPRAZolam [Xanax] 1 mg PO DAILY 09/13/16 04/16/17 History HYDROcodone/APAP 10-325MG [[place] 1 tab PO BID PRN 09/13/16 04/16/17 History 10-325] Vortioxetine Hydrobromide 10 mg PO DAILY 04/16/17 04/16/17 History [Trintellix] lamoTRIgine [LaMICtal] 50 mg PO BID 04/16/17 04/16/17 History traZODone HCL [Desyrel] 50 mg PO HS 04/16/17 04/16/17 History Allergies Allergy/AdvReac Type Severity Reaction Status Date / Time gluten Allergy Intermediate Nausea & Verified 04/16/17 13:18 Vomiting & Diarrhea codeine Allergy Mild Itching Verified 04/16/17 13:18 Physical Exam Vitals: Vital Signs Temp Pulse Resp BP Pulse Ox 04/16/17 10:55 97.5 F L 67 16 115/66 99 04/16/17 07:30 98.0 F 65 16 123/73 96 04/16/17 03:00 98.0 F 58 L 18 138/86 99 Intake and Output 04/16/17 04/16/17 04/16/17 06:59 14:59 22:59 Intake Total 200 Balance 200 Intake: Oral 200 Other: Voiding Method Toilet Weight 92.2 kg PHYSICAL EXAMINATION: GENERAL: The patient is alert and oriented x3, not in any acute distress. Well developed, well nourished. HEENT: Pupils are round and equally reacting to light. EOMI. No scleral icterus. No conjunctival pallor. Normocephalic, atraumatic. No pharyngeal erythema. No thyromegaly. CARDIOVASCULAR: S1 and S2 present. No murmurs, rubs, or gallops. PULMONARY: Chest is clear to auscultation, no wheezing or crackles. ABDOMEN: Soft, nontender, nondistended, normoactive bowel sounds. No palpable organomegaly. MUSCULOSKELETAL: No joint swelling or deformity. EXTREMITIES: No cyanosis, clubbing, or pedal edema. NEUROLOGICAL: Gross neurological examination did not reveal any focal deficits. SKIN: No rashes. Results CBC & Chem 7: 04/16/17 07:39 04/16/17 07:39 Labs: Abnormal Lab Results - Last 24 Hours (Table) 04/15/17 04/16/17 Range/Units 23:15 07:39 BUN 18 H (7-17) mg/dL AST 38 H (14-36) U/L Total Protein 6.0 L (6.3-8.2) g/dL Albumin 3.4 L (3.5-5.0) g/dL Lipase 925 H (23-300) U/L Thrombosis Risk Factor Assmnt - Choose All That Apply Any of the Below Risk Factors Present?: Yes Each Factor Represents 1 point: Age 41-60 years, Obesity (BMI >25) Other Risk Factors: No Other congenital or acquired thrombophilia - If yes, enter type in comment: No Thrombosis Risk Factor Assessment Total Risk Factor Score: 2 Thrombosis Risk Factor Assessment Level: Low Risk Assessment and Plan Plan: Abdominal pain: Etiology is unknown depression is being gastritis, musculoskeletal , patient will be discharged on tramadol and Prilosec. #2 hypertension #3 hypothyroidism #4 asthma without any acute exacerbation. Patient was continued on her appropriate home medications and patient will continue those medications upon discharge and patient will be discharged today.
--- NOTE | 2017-04-16 15:38 | P.DS ---
Providers Date of admission: 04/16/17 01:43 Attending physician: Zaida Pteer Consults: 04/16/17 04:10 Consult Physician Routine Consulting Provider: Blaise Heck Consult Reason/Comments: acute pancreatitis Do you want consulting provider notified?: Yes Primary care physician: Tramaine Peters [facility] Course: Please refer to my HPI Plan - Discharge Summary New Discharge Prescriptions: No Action Levothyroxine Sodium [Synthroid] 112 mcg PO DAILY metFORMIN HCL [Glucophage] 500 mg PO BID HYDROcodone/APAP 10-325MG [[place] 10-325] 1 tab PO BID PRN PRN Reason: Pain ALPRAZolam [Xanax] 1 mg PO DAILY traZODone HCL [Desyrel] 50 mg PO HS lamoTRIgine [LaMICtal] 50 mg PO BID Vortioxetine Hydrobromide [Trintellix] 10 mg PO DAILY Discharge Medication List Levothyroxine Sodium [Synthroid] 112 mcg PO DAILY 05/22/15 [History] metFORMIN HCL [Glucophage] 500 mg PO BID 05/06/16 [History] ALPRAZolam [Xanax] 1 mg PO DAILY 09/13/16 [History] HYDROcodone/APAP 10-325MG [[place] 10-325] 1 tab PO BID PRN 09/13/16 [History] Vortioxetine Hydrobromide [Trintellix] 10 mg PO DAILY 04/16/17 [History] lamoTRIgine [LaMICtal] 50 mg PO BID 04/16/17 [History] traZODone HCL [Desyrel] 50 mg PO HS 04/16/17 [History] Discharge Disposition: HOME SELF-CARE
== END 2017-04-16 16:06 | disposition home or self-care (01) ==
LOC: EC 21:29 → 6PED 04-16 01:43 → INTOOBSV 04-16 01:43 → UNDODISIN 04-16 16:06
PROVIDERS: ADMIT Internal Medicine; ATTEND Internal Medicine
DX: R10.13 Epigastric pain (principal); R10.11 Right upper quadrant pain; M54.9 Dorsalgia, unspecified; E03.9 Hypothyroidism, unspecified; J45.909 Unspecified asthma, uncomplicated; E28.2 Polycystic ovarian syndrome; M79.1 Myalgia; G89.29 Other chronic pain; F17.200 Nicotine dependence, unspecified, uncomplicated; F32.9 Major depressive disorder, single episode, unspecified; F41.9 Anxiety disorder, unspecified; I10 Essential (primary) hypertension; Z79.899 Other long term (current) drug therapy; Z79.84 Long term (current) use of oral hypoglycemic drugs; Z88.5 Allergy status to narcotic agent; Z91.018 Allergy to other foods; Z90.49 Acquired absence of other specified parts of digestive tract; Z86.14 Personal history of Methicillin resistant Staphylococcus aureus infection; E66.9 Obesity, unspecified; Z68.33 Body mass index [BMI] 33.0-33.9, adult
CPT/HCPCS: 96376; 96361; 96374; 96375; 99285; 80053; 82150; 83690; 85025; 81025; 84702; 74177; G0378; J1885; Q9967; J2274

== ENCOUNTER 2017-05-10 01:18 | Emergency (ER) | payer OTHER ==
[2017-05-10] MEDS ORDERED: SODIUM CHLORIDE 0.9% 1,000 ML IV STA (01:28)
[2017-05-10] MEDS ORDERED: KETOROLAC 30 MG/ML 1 ML VIAL IVP STA (01:39)
[2017-05-10] MEDS ORDERED: HYDROmorphone 0.5 MG/0.5 ML SYRINGE IVP STA (01:39)
[2017-05-10] MEDS ORDERED: ONDANSETRON 4 MG/2 ML VIAL IVP STA (01:39)
[2017-05-10 02:18] LABS: Basophils # (A) 0.1 k/uL (0-0.2); Basophils % (A) 1 %; Eosinophils # (A) 0.3 k/uL (0-0.7); Eosinophils % (A) 3 %; HGB 12.7 gm/dL (11.4-16.0); Lymphocytes # (A) 2.3 k/uL (1.0-4.8); Lymphocytes % (A) 21 %; MCH 28.1 pg (25.0-35.0); MCHC 31.7 g/dL (31.0-37.0); MCV 88.7 fL (80.0-100.0); Mean Platelet Volume 7.2; Monocytes # (A) 0.5 k/uL (0-1.0); Monocytes % (A) 4 %; Neutrophils # (A) 7.7 k/uL (1.3-7.7); Neutrophils % (A) 69 %; Platelet Count 268 k/uL (150-450); RBC 4.52 m/uL (3.80-5.40); RDW 14.4 % (11.5-15.5)
[2017-05-10 02:20] LABS: ALT 33 U/L (9-52); AST 20 U/L (14-36); Alcohol <10 mg/dL; Alkaline Phosphatase 71 U/L (38-126); Amylase 41 U/L (30-110); Anion Gap 9 mmol/L; Blood Urea Nitrogen 17 mg/dL (7-17); Calcium 9.8 mg/dL (8.4-10.2); Carbon Dioxide 26 mmol/L (22-30); Chloride 104 mmol/L (98-107); Glucose 110 mg/dL (74-99); Lipase 205 U/L (23-300); Potassium 3.9 mmol/L (3.5-5.1); Sodium 139 mmol/L (137-145); Total Bilirubin 0.1 mg/dL (0.2-1.3); Total Protein 6.6 g/dL (6.3-8.2)
[2017-05-10 02:21] LABS: Appearance,Urine Cloudy (Clear); Bacteria,Urine Rare /hpf; Bilirubin,Urine Negative (Negative); Blood,Urine Negative (Negative); Color,Urine Yellow; Glucose,Urine (UA) Negative (Negative); Hyaline Casts,Urine 3 /lpf (0-2); Ketones,Urine Negative (Negative); Leukocyte Esterase,Urine Moderate (Negative); Mucus,Urine Occasional /hpf; Nitrite,Urine Negative (Negative); PH, Urine 5.5 (5.0-8.0); Protein,Urine Trace (Negative); RBC,Urine 1 /hpf (0-5); Specific Gravity,Urine 1.026 (1.001-1.035); Squamous Epithelial Cell,Urine 13 /hpf (0-4); Urobilinogen,Urine <2.0 mg/dL (<2.0); WBC,Urine 24 /hpf (0-5)
--- NOTE | 2017-05-10 02:21 | ED ---
Abdominal Pain HPI - General Chief Complaint: Abdominal Pain Stated Complaint: URQ Pain Time Seen by Provider: 05/10/17 01:28 Source: patient, RN notes reviewed Mode of arrival: ambulatory Limitations: no limitations - History of Present Illness Initial Comments: This is a 42-year-old female presents emergency Department with chief complaint of upper abdominal pain. She states she is in the hospital a few weeks ago for similar complaints. She states that she was diagnosed with acute pancreatitis. She states the pain never resolved completely. Patient states they cannot find the cause of her pancreatitis. She does admit to drinking alcohol on weekends approximately 4-5 drinks. Patient states she does not drink alcohol on a regular basis. She's had a prior cholecystectomy and 2 sections. She denies any dysuria or hematuria. Patient denies any constipation, melena med she's a she does admit to slight diarrhea along with nausea and vomiting. Denies chest pain or shortness breath no fever no chills. - Related Data Home Medications Medication Instructions Recorded Confirmed Levothyroxine Sodium [Synthroid] 112 mcg PO DAILY 05/22/15 04/16/17 metFORMIN HCL [Glucophage] 500 mg PO BID 05/06/16 04/16/17 ALPRAZolam [Xanax] 1 mg PO DAILY 09/13/16 04/16/17 HYDROcodone/APAP 10-325MG [[place] 1 tab PO BID PRN 09/13/16 04/16/17 10-325] Vortioxetine Hydrobromide 10 mg PO DAILY 04/16/17 04/16/17 [Trintellix] lamoTRIgine [LaMICtal] 50 mg PO BID 04/16/17 04/16/17 traZODone HCL [Desyrel] 50 mg PO HS 04/16/17 04/16/17 Previous Rx's Medication Instructions Recorded Ciprofloxacin HCl [Cipro] 500 mg PO Q12HR #20 tablet 05/10/17 Hydrocodone/Acetaminophen [[place] 1 tab PO Q6HR PRN #15 tab 05/10/17 5-325] Allergies Allergy/AdvReac Type Severity Reaction Status Date / Time gluten Allergy Intermediate Nausea & Verified 05/10/17 01:25 Vomiting & Diarrhea codeine Allergy Mild Itching Verified 05/10/17 01:25 Review of Systems ROS Statement: Those systems with pertinent positive or pertinent negative responses have been documented in the HPI. ROS Other: All systems not noted in ROS Statement are negative. Past Medical History Past Medical History: Asthma, Thyroid Disorder Additional Past Medical History / Comment(s): celiac,chronic back pain,pcos; diverticulitis,pancreatitis History of Any Multi-Drug Resistant Organisms: MRSA Date of last positivie culture/infection: 2007 MDRO Source:: leg Past Surgical History: Section, Cholecystectomy, Orthopedic Surgery, Tonsillectomy Additional Past Surgical History / Comment(s): Abdominoplasty, devitated septum repair Past Anesthesia/Blood Transfusion Reactions: No Reported Reaction Past Psychological History: Anxiety, Depression Smoking Status: Current every day smoker Past Alcohol Use History: Occasional Past Drug Use History: None Reported - Past Family History Mother Family Medical History: No Reported History General Exam Limitations: no limitations General appearance: alert, in no apparent distress Neck exam: Present: normal inspection, full ROM. Absent: tenderness, meningismus, lymphadenopathy Respiratory exam: Present: normal lung sounds bilaterally. Absent: respiratory distress, wheezes, rales, rhonchi, stridor Cardiovascular Exam: Present: regular rate, normal rhythm, normal heart sounds. Absent: systolic murmur, diastolic murmur, rubs, gallop, clicks GI/Abdominal exam: Present: soft, tenderness, normal bowel sounds. Absent: distended, guarding, rebound, rigid Back exam: Absent: CVA tenderness (R), CVA tenderness (L) Skin exam: Present: warm, dry, intact, normal color. Absent: rash Course Vital Signs 05/10/17 01:20 Temperature 97.9 F Pulse Rate 76 Respiratory 16 Rate Blood Pressure 134/60 O2 Sat by Pulse 95 Oximetry Medical Decision Making - Medical Decision Making 42-year-old female was in the emergency department for right flank pain requiring pain. Patient started have urinary tract infection probably early pyelonephritis. Patient was given Rocephin the emergency department be discharged with ciprofloxacin, urine culture obtained. Patient also be given a short course of pain medication. She is advised to increase her fluids follow- up for recheck with PCP and return for any worsening symptoms. - Lab Data Result diagrams: 05/10/17 01:44 05/10/17 01:44 Lab Results 05/10/17 05/10/17 05/10/17 Range/Units 01:44 01:44 01:44 WBC 11.0 H (3.8-10.6) k/uL RBC 4.52 (3.80-5.40) m/uL Hgb 12.7 (11.4-16.0) gm/dL Hct 40.0 (34.0-46.0) % MCV 88.7 (80.0-100.0) fL MCH 28.1 (25.0-35.0) pg MCHC 31.7 (31.0-37.0) g/dL RDW 14.4 (11.5-15.5) % Plt Count 268 (150-450) k/uL Neutrophils % 69 % Lymphocytes % 21 % Monocytes % 4 % Eosinophils % 3 % Basophils % 1 % Neutrophils # 7.7 (1.3-7.7) k/uL Lymphocytes # 2.3 (1.0-4.8) k/uL Monocytes # 0.5 (0-1.0) k/uL Eosinophils # 0.3 (0-0.7) k/uL Basophils # 0.1 (0-0.2) k/uL Sodium 139 (137-145) mmol/L Potassium 3.9 (3.5-5.1) mmol/L Chloride 104 (98-107) mmol/L Carbon Dioxide 26 (22-30) mmol/L Anion Gap 9 mmol/L BUN 17 (7-17) mg/dL Creatinine 0.70 (0.52-1.04) mg/dL Est GFR (MDRD) Af Amer >60 (>60 ml/min/1.73 sqM) Est GFR (MDRD) Non-Af >60 (>60 ml/min/1.73 sqM) Glucose 110 H (74-99) mg/dL Calcium 9.8 (8.4-10.2) mg/dL Total Bilirubin 0.1 L (0.2-1.3) mg/dL AST 20 (14-36) U/L ALT 33 (9-52) U/L Alkaline Phosphatase 71 (38-126) U/L Total Protein 6.6 (6.3-8.2) g/dL Albumin 4.0 (3.5-5.0) g/dL Amylase 41 (30-110) U/L Lipase 205 (23-300) U/L Urine Color Yellow Urine Appearance Cloudy H (Clear) Urine pH 5.5 (5.0-8.0) Ur Specific [place] 1.026 (1.001-1.035) Urine Protein Trace H (Negative) Urine Glucose (UA) Negative (Negative) Urine Ketones Negative (Negative) Urine Blood Negative (Negative) Urine Nitrite Negative (Negative) Urine Bilirubin Negative (Negative) Urine Urobilinogen <2.0 (<2.0) mg/dL Ur Leukocyte Esterase Moderate H (Negative) Urine RBC 1 (0-5) /hpf Urine WBC 24 H (0-5) /hpf Ur Squamous Epith Cells 13 H (0-4) /hpf Urine Bacteria Rare H (None) /hpf Hyaline Casts 3 H (0-2) /lpf Urine Mucus Occasional H (None) /hpf Urine HCG, Qual (Not Detectd) Serum Alcohol <10 mg/dL 05/10/17 Range/Units 01:44 WBC (3.8-10.6) k/uL RBC (3.80-5.40) m/uL Hgb (11.4-16.0) gm/dL Hct (34.0-46.0) % MCV (80.0-100.0) fL MCH (25.0-35.0) pg MCHC (31.0-37.0) g/dL RDW (11.5-15.5) % Plt Count (150-450) k/uL Neutrophils % % Lymphocytes % % Monocytes % % Eosinophils % % Basophils % % Neutrophils # (1.3-7.7) k/uL Lymphocytes # (1.0-4.8) k/uL Monocytes # (0-1.0) k/uL Eosinophils # (0-0.7) k/uL Basophils # (0-0.2) k/uL Sodium (137-145) mmol/L Potassium (3.5-5.1) mmol/L Chloride (98-107) mmol/L Carbon Dioxide (22-30) mmol/L Anion Gap mmol/L BUN (7-17) mg/dL Creatinine (0.52-1.04) mg/dL Est GFR (MDRD) Af Amer (>60 ml/min/1.73 sqM) Est GFR (MDRD) Non-Af (>60 ml/min/1.73 sqM) Glucose (74-99) mg/dL Calcium (8.4-10.2) mg/dL Total Bilirubin (0.2-1.3) mg/dL AST (14-36) U/L ALT (9-52) U/L Alkaline Phosphatase (38-126) U/L Total Protein (6.3-8.2) g/dL Albumin (3.5-5.0) g/dL Amylase (30-110) U/L Lipase (23-300) U/L Urine Color Urine Appearance (Clear) Urine pH (5.0-8.0) Ur Specific [place] (1.001-1.035) Urine Protein (Negative) Urine Glucose (UA) (Negative) Urine Ketones (Negative) Urine Blood (Negative) Urine Nitrite (Negative) Urine Bilirubin (Negative) Urine Urobilinogen (<2.0) mg/dL Ur Leukocyte Esterase (Negative) Urine RBC (0-5) /hpf Urine WBC (0-5) /hpf Ur Squamous Epith Cells (0-4) /hpf Urine Bacteria (None) /hpf Hyaline Casts (0-2) /lpf Urine Mucus (None) /hpf Urine HCG, Qual Not Detected (Not Detectd) Serum Alcohol mg/dL Disposition Clinical Impression: Pyelonephritis Disposition: HOME SELF-CARE Condition: Stable Instructions: Kidney Infection (ED) Additional Instructions: Please return to the Emergency Department if symptoms worsen or any other concerns. Prescriptions: Ciprofloxacin HCl [Cipro] 500 mg PO Q12HR #20 tablet Hydrocodone/Acetaminophen [[place] 5-325] 1 tab PO Q6HR PRN #15 tab PRN Reason: Pain Referrals: Lorraine Redd MD [Primary Care Provider] - 1-2 days Time of Disposition: 02:39
[2017-05-10] MEDS ORDERED: cefTRIAXone IN SWFI 1,000 MG/10 ML SYRINGE IVP STA (02:38)
[2017-05-10 03:24] VITALS: BP 117/53; PULSE 63; RESP 18; TEMP 97.7
== END 2017-05-10 03:22 | disposition home or self-care (01) ==
LOC: EC 01:18
DX: N12 Tubulo-interstitial nephritis, not specified as acute or chronic (principal); E07.9 Disorder of thyroid, unspecified; F41.9 Anxiety disorder, unspecified; F32.9 Major depressive disorder, single episode, unspecified; F17.200 Nicotine dependence, unspecified, uncomplicated; Z86.14 Personal history of Methicillin resistant Staphylococcus aureus infection; Z90.49 Acquired absence of other specified parts of digestive tract; Z79.84 Long term (current) use of oral hypoglycemic drugs; Z79.899 Other long term (current) drug therapy; Z91.018 Allergy to other foods; Z88.5 Allergy status to narcotic agent
CPT/HCPCS: 36415; 80053; 82150; 83690; 85025; 81001; 81025; 80320; 87086; 99284; 96374; 96375 ×3; 96361; J2405; J0696; J1885; J1170

== ENCOUNTER 2018-01-25 18:50 | Emergency (ER) | payer OTHER ==
[2018-01-25 19:02] VITALS: RESP 18
[2018-01-25] MEDS ORDERED: ONDANSETRON 4 MG/2 ML VIAL IVP STA (19:16)
[2018-01-25] MEDS ORDERED: SODIUM CHLORIDE 0.9% 1,000 ML IV STA (19:16)
[2018-01-25] MEDS ORDERED: KETOROLAC 30 MG/ML 1 ML VIAL IVP STA (19:16)
--- NOTE | 2018-01-25 19:22 | ED ---
Abdominal Pain HPI - General Chief Complaint: Abdominal Pain Stated Complaint: back and abdominal pain and bloating Time Seen by Provider: 01/25/18 19:10 Source: patient Mode of arrival: ambulatory Limitations: no limitations - History of Present Illness Initial Comments: 43-year-old female patient presents to the emergency department today for evaluation of abdominal pain and bloating. Patient states that she has been having symptoms for the last week. Patient states that she is constipated and has not had a good bowel movement in over a week. Patient states that her abdomen has become more swollen and bloated. Patient states that she developed right flank pain today. Patient states the pain is sharp and aching. Patient states she is very tender over the area. Patient states that she has been having some dysuria and difficulty urinating. Patient denies any fevers but states she is chilled today. Patient states she is nauseous but has not vomited. Patient has a history of celiac disease, pancreatitis, cholecystectomy , , and abdominoplasty performed. Patient denies any recent rash, shortness breath, chest pain, numbness, tingling, dizziness, weakness, headache , visual changes, or any other complaints. Denies any history of kidney stones. - Related Data Home Medications Medication Instructions Recorded Confirmed Levothyroxine Sodium [Synthroid] 112 mcg PO DAILY 05/22/15 01/25/18 metFORMIN HCL [Glucophage] 500 mg PO BID 05/06/16 01/25/18 Vortioxetine Hydrobromide 10 mg PO DAILY 04/16/17 01/25/18 [Trintellix] traZODone HCL [Desyrel] 50 mg PO HS 04/16/17 01/25/18 ALPRAZolam [Xanax] 1 mg PO BID PRN 01/25/18 01/25/18 Acetylcysteine [Nac] 500 mg PO BID 01/25/18 01/25/18 Cholecalciferol (Vitamin D3) 2,000 unit PO BID 01/25/18 01/25/18 [Vitamin D3] Beth 500 mg PO DAILY 01/25/18 01/25/18 L.acidoph,Paracasei, B.lactis 1 cap PO BID 01/25/18 01/25/18 [Probiotic] Magnesium Oxide [Cool] 2,000 mg PO DAILY 01/25/18 01/25/18 Turmeric Root Extract [Turmeric] 2,000 mg PO DAILY 01/25/18 01/25/18 lamoTRIgine [LaMICtal] 100 mg PO BID 01/25/18 01/25/18 Allergies Allergy/AdvReac Type Severity Reaction Status Date / Time gluten Allergy Intermediate Nausea & Verified 01/25/18 20:18 Vomiting & Diarrhea codeine Allergy Mild Itching Verified 01/25/18 20:18 Review of Systems ROS Statement: Those systems with pertinent positive or pertinent negative responses have been documented in the HPI. ROS Other: All systems not noted in ROS Statement are negative. Past Medical History Past Medical History: Asthma, Thyroid Disorder Additional Past Medical History / Comment(s): celiac,chronic back pain,pcos; diverticulitis,pancreatitis History of Any Multi-Drug Resistant Organisms: MRSA Date of last positivie culture/infection: 2007 MDRO Source:: leg Past Surgical History: Section, Cholecystectomy, Orthopedic Surgery, Tonsillectomy Additional Past Surgical History / Comment(s): Abdominoplasty, devitated septum repair Past Anesthesia/Blood Transfusion Reactions: No Reported Reaction Past Psychological History: Anxiety, Depression Smoking Status: Current every day smoker Past Alcohol Use History: Occasional Past Drug Use History: None Reported - Past Family History Mother Family Medical History: No Reported History General Exam Limitations: no limitations General appearance: alert, in no apparent distress, other (This is a well- developed, well-nourished adult female patient in no acute distress. Vital signs upon presentation are temperature 98.2F, pulse 77, respirations 18, blood pressure 120/75, pulse ox 100% on room air.) Eye exam: Present: normal appearance, PERRL, EOMI. Absent: scleral icterus, conjunctival injection, periorbital swelling ENT exam: Present: normal exam, normal oropharynx, mucous membranes moist Respiratory exam: Present: normal lung sounds bilaterally. Absent: respiratory distress, wheezes, rales, rhonchi, stridor Cardiovascular Exam: Present: regular rate, normal rhythm, normal heart sounds. Absent: systolic murmur, diastolic murmur, rubs, gallop, clicks GI/Abdominal exam: Present: soft, tenderness (Midepigastric tenderness), normal bowel sounds. Absent: distended, guarding, rebound, rigid Back exam: Present: normal inspection, CVA tenderness (R). Absent: CVA tenderness (L) Neurological exam: Present: alert, oriented X3, CN II-XII intact Psychiatric exam: Present: normal affect, normal mood Skin exam: Present: warm, dry, intact, normal color. Absent: rash Course Vital Signs 01/25/18 01/25/18 01/25/18 19:00 22:17 22:58 Temperature 98.2 F 98.3 F Pulse Rate 77 68 Respiratory 18 18 Rate Blood Pressure 120/75 114/57 O2 Sat by Pulse 100 99 Oximetry Medical Decision Making - Medical Decision Making 43-year-old female patient presents the emergency department today for complaints of generalized abdominal bloating and right flank pain. Physical examination did reveal some right upper quadrant tenderness. Patient did have some right CVA tenderness. Labs reviewed and are unremarkable. Urinalysis was negative for any evidence of infection or red blood cells. Patient is feeling better after receiving pain medication here in the department. Patient does report that she is constipated, we will give her magnesium citrate for this. She is instructed to follow-up with her primary care physician to discuss further testing such as ultrasound. Return parameters were discussed in detail. She verbalizes understanding and agrees with this plan. - Lab Data Result diagrams: 01/25/18 20:43 01/25/18 19:16 Lab Results 01/25/18 01/25/18 01/25/18 Range/Units 19:16 20:10 20:10 WBC (3.8-10.6) k/uL RBC (3.80-5.40) m/uL Hgb (11.4-16.0) gm/dL Hct (34.0-46.0) % MCV (80.0-100.0) fL MCH (25.0-35.0) pg MCHC (31.0-37.0) g/dL RDW (11.5-15.5) % Plt Count (150-450) k/uL Neutrophils % % Lymphocytes % % Monocytes % % Eosinophils % % Basophils % % Neutrophils # (1.3-7.7) k/uL Lymphocytes # (1.0-4.8) k/uL Monocytes # (0-1.0) k/uL Eosinophils # (0-0.7) k/uL Basophils # (0-0.2) k/uL Sodium 138 (137-145) mmol/L Potassium 4.1 (3.5-5.1) mmol/L Chloride 105 (98-107) mmol/L Carbon Dioxide 24 (22-30) mmol/L Anion Gap 9 mmol/L BUN 14 (7-17) mg/dL Creatinine 0.68 (0.52-1.04) mg/dL Est GFR (CKD-EPI)AfAm >90 (>60 ml/min/1.73 sqM) Est GFR (CKD-EPI)NonAf >90 (>60 ml/min/1.73 sqM) Glucose 88 (74-99) mg/dL Calcium 9.7 (8.4-10.2) mg/dL Total Bilirubin 0.2 (0.2-1.3) mg/dL AST 24 (14-36) U/L ALT 25 (9-52) U/L Alkaline Phosphatase 56 (38-126) U/L Total Protein 6.8 (6.3-8.2) g/dL Albumin 4.1 (3.5-5.0) g/dL Amylase 48 (30-110) U/L Lipase 179 (23-300) U/L Urine Color Yellow Urine Appearance Clear (Clear) Urine pH 6.5 (5.0-8.0) Ur Specific [place] 1.016 (1.001-1.035) Urine Protein Negative (Negative) Urine Glucose (UA) Negative (Negative) Urine Ketones Negative (Negative) Urine Blood Trace H (Negative) Urine Nitrite Negative (Negative) Urine Bilirubin Negative (Negative) Urine Urobilinogen <2.0 (<2.0) mg/dL Ur Leukocyte Esterase Trace H (Negative) Urine RBC 1 (0-5) /hpf Urine WBC 1 (0-5) /hpf Ur Squamous Epith Cells 2 (0-4) /hpf Urine HCG, Qual Not Detected (Not Detectd) 01/25/18 Range/Units 20:43 WBC 11.8 H (3.8-10.6) k/uL RBC 4.50 (3.80-5.40) m/uL Hgb 13.1 (11.4-16.0) gm/dL Hct 39.5 (34.0-46.0) % MCV 87.9 (80.0-100.0) fL MCH 29.0 (25.0-35.0) pg MCHC 33.0 (31.0-37.0) g/dL RDW 13.2 (11.5-15.5) % Plt Count 299 (150-450) k/uL Neutrophils % 66 % Lymphocytes % 24 % Monocytes % 4 % Eosinophils % 4 % Basophils % 1 % Neutrophils # 7.8 H (1.3-7.7) k/uL Lymphocytes # 2.9 (1.0-4.8) k/uL Monocytes # 0.5 (0-1.0) k/uL Eosinophils # 0.5 (0-0.7) k/uL Basophils # 0.1 (0-0.2) k/uL Sodium (137-145) mmol/L Potassium (3.5-5.1) mmol/L Chloride (98-107) mmol/L Carbon Dioxide (22-30) mmol/L Anion Gap mmol/L BUN (7-17) mg/dL Creatinine (0.52-1.04) mg/dL Est GFR (CKD-EPI)AfAm (>60 ml/min/1.73 sqM) Est GFR (CKD-EPI)NonAf (>60 ml/min/1.73 sqM) Glucose (74-99) mg/dL Calcium (8.4-10.2) mg/dL Total Bilirubin (0.2-1.3) mg/dL AST (14-36) U/L ALT (9-52) U/L Alkaline Phosphatase (38-126) U/L Total Protein (6.3-8.2) g/dL Albumin (3.5-5.0) g/dL Amylase (30-110) U/L Lipase (23-300) U/L Urine Color Urine Appearance (Clear) Urine pH (5.0-8.0) Ur Specific [place] (1.001-1.035) Urine Protein (Negative) Urine Glucose (UA) (Negative) Urine Ketones (Negative) Urine Blood (Negative) Urine Nitrite (Negative) Urine Bilirubin (Negative) Urine Urobilinogen (<2.0) mg/dL Ur Leukocyte Esterase (Negative) Urine RBC (0-5) /hpf Urine WBC (0-5) /hpf Ur Squamous Epith Cells (0-4) /hpf Urine HCG, Qual (Not Detectd) - Radiology Data Radiology results: report reviewed, image reviewed Two-view x-ray of the abdomen is obtained. This is sign of intestinal structure pneumoperitoneum. There are clips from cholecystectomy. Lung bases are clear. There are no pathologic calcifications over the kidneys. IUD as noted. Impression by Dr. Gupta shows nonacute abdomen with no change. Disposition Clinical Impression: Abdominal pain Disposition: HOME SELF-CARE Condition: Good Instructions: Abdominal Pain (ED) Additional Instructions: Take medication as directed. Follow-up with your primary care physician for recheck in 1-2 days. Return here immediately for any new, worsening, or concerning symptoms were Is patient prescribed a controlled substance at d/c from ED?: No Referrals: Lorraine Redd MD [Primary Care Provider] - 1-2 days Time of Disposition: 22:49
[2018-01-25 20:45] LABS: Appearance,Urine Clear (Clear); Bilirubin,Urine Negative (Negative); Blood,Urine Trace (Negative); Color,Urine Yellow; Glucose,Urine (UA) Negative (Negative); Ketones,Urine Negative (Negative); Leukocyte Esterase,Urine Trace (Negative); Nitrite,Urine Negative (Negative); PH, Urine 6.5 (5.0-8.0); Protein,Urine Negative (Negative); RBC,Urine 1 /hpf (0-5); Specific Gravity,Urine 1.016 (1.001-1.035); Squamous Epithelial Cell,Urine 2 /hpf (0-4); Urobilinogen,Urine <2.0 mg/dL (<2.0); WBC,Urine 1 /hpf (0-5)
[2018-01-25 21:01] LABS: ALT 25 U/L (9-52); AST 24 U/L (14-36); Albumin 4.1 g/dL (3.5-5.0); Alkaline Phosphatase 56 U/L (38-126); Amylase 48 U/L (30-110); Anion Gap 9 mmol/L; Blood Urea Nitrogen 14 mg/dL (7-17); Calcium 9.7 mg/dL (8.4-10.2); Carbon Dioxide 24 mmol/L (22-30); Chloride 105 mmol/L (98-107); Glucose 88 mg/dL (74-99); Lipase 179 U/L (23-300); Potassium 4.1 mmol/L (3.5-5.1); Sodium 138 mmol/L (137-145); Total Bilirubin 0.2 mg/dL (0.2-1.3); Total Protein 6.8 g/dL (6.3-8.2)
--- NOTE | 2018-01-25 21:13 | XR ---
EXAMINATION TYPE: XR KUB DATE OF EXAM: 01/25/2018 COMPARISON: 05/06/2016 HISTORY: Abdominal pain TECHNIQUE: 2 views FINDINGS: There is no sign of intestinal obstruction or pneumoperitoneum. There are clips from cholec ystectomy. Lung bases are clear. There are no pathologic calcifications over the kidneys. IUD is note d. IMPRESSION: Nonacute abdomen. No change.
[2018-01-25] MEDS ORDERED: MORPHINE SULFATE 4 MG/ML SYRINGE IVP STA (21:42)
[2018-01-25 22:08] LABS: Basophils # (A) 0.1 k/uL (0-0.2); Basophils % (A) 1 %; Eosinophils # (A) 0.5 k/uL (0-0.7); Eosinophils % (A) 4 %; HCT 39.5 % (34.0-46.0); HGB 13.1 gm/dL (11.4-16.0); Lymphocytes # (A) 2.9 k/uL (1.0-4.8); Lymphocytes % (A) 24 %; MCV 87.9 fL (80.0-100.0); Mean Platelet Volume 6.8; Monocytes # (A) 0.5 k/uL (0-1.0); Monocytes % (A) 4 %; Neutrophils # (A) 7.8 k/uL (1.3-7.7); Neutrophils % (A) 66 %; Platelet Count 299 k/uL (150-450); RDW 13.2 % (11.5-15.5); WBC 11.8 k/uL (3.8-10.6)
[2018-01-25 22:19] VITALS: BP 114/57; PULSE 68
[2018-01-25] MEDS ORDERED: MAGNESIUM CITRATE 296 ML BOTTLE PO ONE (22:44)
[2018-01-25 23:02] VITALS: TEMP 98.3
== END 2018-01-25 22:58 | disposition home or self-care (01) ==
LOC: EC 18:50
DX: R10.9 Unspecified abdominal pain (principal); R14.0 Abdominal distension (gaseous); M54.9 Dorsalgia, unspecified; K59.00 Constipation, unspecified; R11.0 Nausea; R30.0 Dysuria
CPT/HCPCS: 36415; 80053; 82150; 83690; 85025; 81001; 81025; 74018; 99284; 96374; 96375 ×2; J2270; J2405; J1885

== ENCOUNTER → 2018-05-04 | Outpatient (CLI) | payer OTHER ==
--- NOTE | 2018-05-04 10:43 | CT ---
EXAMINATION TYPE: CT brain w con DATE OF EXAM: 05/04/2018 COMPARISON: 09/13/2016 HISTORY: 43-year-old female Mass on Lt side of nose. Localized swelling/mass/lump head TECHNIQUE: Contiguous axial scanning of the brain performed with IV Contrast, patient injected with 1 00 mL of Isovue 300. Coronal/sagittal reconstructions performed. CT DLP: 1129 mGycm Automated exposure control for dose reduction was used. FINDINGS: There is no abnormal enhancing mass or midline shift identified. The ventricles and sulci are wit hin normal limits in size. The globes are intact and the visualized sinuses are clear. Partially into the sella incidentally noted. Right-sided nose ring is present a discrete soft tissue mass is not apparent by CT along the left nicolas e of the nose. Moderate mucosal thickening right maxillary sinus with frothy air-fluid level. Mild mucosal thickenin g left maxillary sinus and mild to moderate scattered throughout the ethmoid air cells. Additional fr othy partial opacification of the right sphenoid sinus. Mastoid air cells well pneumatized. Orbits an d globes are intact. IMPRESSION: 1. UNCHANGED PARTIALLY EMPTY SELLA. 2. NO ENHANCING INTRACRANIAL LESIONS SEEN. NO MIDLINE SHIFT OR MASS EFFECT. 3. ACUTE ON CHRONIC RIGHT MAXILLARY AND RIGHT SPHENOID SINUSITIS.
== END ==
LOC: RADCTMAIN 08:11
PROVIDERS: ATTEND Midwife
DX: R22.0 Localized swelling, mass and lump, head (principal)
CPT/HCPCS: 82565; 84520; 70460; 36415; Q9967

== ENCOUNTER 2018-05-10 09:49 | Day surgery (SDC) | payer OTHER ==
[2018-05-09 08:18] VITALS: BMI 35.7
[~2018-05-10 09:49] MED LIST changes: +LIDOCAINE 1% 20 ML VIAL (10MG/ML) FOR IV START INTRADERMA PRN
[2018-05-10 10:41] VITALS: RESP 16; TEMP 98.2
[2018-05-10] MEDS ORDERED: PROPOFOL 10 MG/ML 20 ML VIAL IV ONE (10:50)
--- NOTE | 2018-05-10 11:00 | P.GSHP ---
History of Present Illness H&P Date: 05/10/18 Chief Complaint: Epigastric pain, diverticulitis This is a 43-year-old female who presents today for EGD and colonoscopy. Patient had complaints of abdominal pain. She has. History of diverticulitis. Patient has safer EGD for possible gastritis and colonoscopy tonight for diverticulitis. Past Medical History Past Medical History: Asthma, Eye Disorder, GERD/Reflux, Thyroid Disorder Additional Past Medical History / Comment(s): celiac,chronic back pain, polycystic ovarian syndrome,heart murmur,steroid Mar 2018, severe dry eyes,hx diverticulitis,pancreatitis History of Any Multi-Drug Resistant Organisms: MRSA Date of last positivie culture/infection: 2007 MDRO Source:: leg Past Surgical History: Section, Cholecystectomy, Orthopedic Surgery, Tonsillectomy Additional Past Surgical History / Comment(s): Abdominoplasty, devitated septum repair,candido arthroscopy &rot cuff repairs Past Anesthesia/Blood Transfusion Reactions: No Reported Reaction Additional Past Anesthesia/Blood Transfusion Reaction / Comment(s): no hx blood transfusion Smoking Status: Current every day smoker - Past Family History Mother Family Medical History: No Reported History Father Family Medical History: Deep Vein Thrombosis (DVT) Medications and Allergies Home Medications Medication Instructions Recorded Confirmed Type Levothyroxine Sodium [Synthroid] 112 mcg PO QAM 05/22/15 05/10/18 History metFORMIN HCL [Glucophage] 500 mg PO BID 05/06/16 05/10/18 History traZODone HCL [Desyrel] 50 mg PO HS 04/16/17 05/10/18 History ALPRAZolam [Xanax] 1 mg PO BID PRN 01/25/18 05/10/18 History lamoTRIgine [LaMICtal] 100 mg PO BID 01/25/18 05/10/18 History Carboxymethylcellulose Sodium 1 drop BOTH EYES QID 05/09/18 05/10/18 History [Refresh Tears] Phentermine HCl [Adipex-P] 37.5 mg PO DAILY 05/09/18 05/10/18 History Spironolactone [Aldactone] 25 mg PO DAILY 05/09/18 05/10/18 History Topiramate [Topamax] 25 mg PO BID PRN 05/09/18 05/10/18 History Vortioxetine Hydrobromide 20 mg PO HS 05/09/18 05/10/18 History [Trintellix] busPIRone HCL [Buspar] 7.5 mg PO BID 05/09/18 05/10/18 History Allergies Allergy/AdvReac Type Severity Reaction Status Date / Time gluten Allergy Intermediate Nausea & Verified 05/10/18 10:43 Vomiting & Diarrhea codeine Allergy Mild Itching Verified 05/10/18 10:43 Surgical - Exam Vital Signs Temp Pulse Resp BP Pulse Ox 98.2 F 76 16 142/76 99 05/10/18 10:37 05/10/18 10:37 05/10/18 10:37 05/10/18 10:37 05/10/18 10:37 - General well developed, well nourished, no distress - Eyes PERRL - ENT normal pinna - Neck no masses - Respiratory normal expansion - Cardiovascular Rhythm: regular - Abdomen Abdomen: soft, non tender Assessment and Plan Assessment: Abdominal pain, gastritis, diverticulitis. We'll perform EGD and colonoscopy.
--- NOTE | 2018-05-10 11:19 | P.OP ---
Date of Procedure: 05/10/18 Preoperative Diagnosis: Gastritis Diverticulitis Postoperative Diagnosis: Antral gastritis No evidence of hiatal hernia Procedure(s) Performed: EGD Colonoscopy Anesthesia: MAC Surgeon: Oc Garcia Pathology: other (Antrum) Condition: stable Disposition: PACU Description of Procedure: Patient's placed on the endoscopy table in the lateral position. She received IV sedation. The gastroscope placed oropharynx and passed in the esophagus and stomach. Scope was then placed through the pylorus. First and second portion of the duodenum appeared normal. Scope was then brought back the antrum this. Mildly inflamed. A biopsies performed. Scope was retroflexed and remainder stomach appeared normal. There is no significant hiatal hernia. The GE junction was at 40 cm. The distal esophagus appeared normal. The proximal esophagus appeared normal. Scope was withdrawn for patient. Next digital rectal exam was performed which revealed no revealed no abnormalities. The flexible colonoscope was then placed patient anus passed throughout the entire colon. Ileocecal valve sutures. The cecum, ascending and transverse colon appeared normal. In the descending; was a few scattered small diverticula. Scope was then brought back the rectum this appeared normal. Scope withdrawn for patient.
[2018-05-10 12:08] VITALS: BP 122/77; PULSE 66
== END 2018-05-10 12:08 | disposition home or self-care (01) ==
LOC: ORWHC2ENDO 09:49
PROVIDERS: ATTEND Surgery
DX: K29.50 Unspecified chronic gastritis without bleeding (principal); K57.30 Diverticulosis of large intestine without perforation or abscess without bleeding; G89.29 Other chronic pain; E28.2 Polycystic ovarian syndrome; E07.9 Disorder of thyroid, unspecified; F17.210 Nicotine dependence, cigarettes, uncomplicated; Q61.3 Polycystic kidney, unspecified; J45.909 Unspecified asthma, uncomplicated; K21.9 Gastro-esophageal reflux disease without esophagitis; Z88.5 Allergy status to narcotic agent; F32.9 Major depressive disorder, single episode, unspecified; F41.9 Anxiety disorder, unspecified; Z79.890 Hormone replacement therapy; Z79.84 Long term (current) use of oral hypoglycemic drugs; Z79.899 Other long term (current) drug therapy; Z86.14 Personal history of Methicillin resistant Staphylococcus aureus infection; Z91.048 Other nonmedicinal substance allergy status
CPT/HCPCS: 81025; 88305; 45378; 43239; J2704

== ENCOUNTER → 2018-08-07 | Outpatient (CLI) | payer OTHER ==
--- NOTE | 2018-08-08 08:11 | XR ---
EXAMINATION TYPE: XR knee limited LT DATE OF EXAM: 08/07/2018 COMPARISON: None HISTORY: Pain TECHNIQUE: 2 view left knee FINDINGS: Posterior superior patellar spurring is present. Anterior superior patellar spurring is pre sent. A small joint effusion is likely present. There is narrowing of the patellofemoral joint space Lateral tibial plateau and femoral condylar spurring is present. Joint spaces otherwise appear preser vani. No acute fractures or dislocations are evident. IMPRESSION: 1. Degenerative changes greater in the patellofemoral joint space with a small to moderate joint eff usion.
== END ==
LOC: RADXRMAIN 17:05
PROVIDERS: ATTEND Internal Medicine
DX: M25.462 Effusion, left knee (principal)

== ENCOUNTER 2018-12-11 22:24 | Emergency (ER) | payer OTHER ==
[2018-12-11 22:31] VITALS: RESP 18
[2018-12-11] MEDS ORDERED: SODIUM CHLORIDE 0.9% 1,000 ML IV STA (23:16)
[2018-12-11] MEDS ORDERED: HYDROmorphone 1 MG/ML 1 ML SYRINGE IVP STA (23:16)
[2018-12-11] MEDS ORDERED: ONDANSETRON 4 MG/2 ML VIAL IVP STA (23:16)
[2018-12-11 23:20] LABS: Appearance,Urine Clear (Clear); Bilirubin,Urine Negative (Negative); Blood,Urine Moderate (Negative); Color,Urine Yellow; Glucose,Urine (UA) Negative (Negative); Ketones,Urine Negative (Negative); Leukocyte Esterase,Urine Negative (Negative); Mucus,Urine Rare /hpf; Nitrite,Urine Negative (Negative); PH, Urine 5.5 (5.0-8.0); Protein,Urine 1+ (Negative); RBC,Urine 32 /hpf (0-5); Specific Gravity,Urine 1.037 (1.001-1.035); Squamous Epithelial Cell,Urine 1 /hpf (0-4); Urobilinogen,Urine <2.0 mg/dL (<2.0); WBC,Urine 2 /hpf (0-5)
[2018-12-11 23:59] LABS: Basophils # (A) 0.1 k/uL (0-0.2); Basophils % (A) 1 %; Eosinophils # (A) 0.4 k/uL (0-0.7); Eosinophils % (A) 5 %; HCT 39.2 % (34.0-46.0); HGB 12.6 gm/dL (11.4-16.0); Lymphocytes # (A) 2.8 k/uL (1.0-4.8); Lymphocytes % (A) 31 %; MCH 27.7 pg (25.0-35.0); MCHC 32.2 g/dL (31.0-37.0); Mean Platelet Volume 6.3; Monocytes # (A) 0.4 k/uL (0-1.0); Monocytes % (A) 4 %; Neutrophils # (A) 5.3 k/uL (1.3-7.7); Neutrophils % (A) 58 %; Platelet Count 270 k/uL (150-450); RBC 4.56 m/uL (3.80-5.40); RDW 13.2 % (11.5-15.5); WBC 9.2 k/uL (3.8-10.6)
[2018-12-12 00:09] LABS: ALT 20 U/L (9-52); AST 33 U/L (14-36); African American GFR (CKD) >90 (>60 ml/min/1.73 sqM); Albumin 4.3 g/dL (3.5-5.0); Alkaline Phosphatase 54 U/L (38-126); Amylase 38 U/L (30-110); Anion Gap 11 mmol/L; Blood Urea Nitrogen 20 mg/dL (7-17); Calcium 9.5 mg/dL (8.4-10.2); Carbon Dioxide 23 mmol/L (22-30); Chloride 105 mmol/L (98-107); Glucose 118 mg/dL (74-99); Non-African American GFR(CKD) >90 (>60 ml/min/1.73 sqM); Potassium 3.8 mmol/L (3.5-5.1); Sodium 139 mmol/L (137-145); Total Bilirubin 0.3 mg/dL (0.2-1.3)
[2018-12-12] MEDS ORDERED: KETOROLAC 30 MG/ML 1 ML VIAL IVP STA (00:49)
--- NOTE | 2018-12-12 00:49 | CT ---
INDICATION: Flank pain TECHNIQUE: CT acquisition is performed through the abdomen and pelvis. Sagittal and coronal reformatted images are provided. No IV contrast is administered. DOSE INFORMATION: DLP 840.1 mGy-cm. This CT exam was performed using one or more of the following dose reduction techniques: automated exposure control, adjustment of the mA and/or kV according to patient size, and/or use of iterative reconstruction technique. COMPARISON: CT abdomen and pelvis with contrast, 04/16/17. FINDINGS: The lung bases are clear. The gallbladder is surgically absent. The unenhanced appearance of the liver, spleen, pancreas, and adrenal glands is unremarkable. The kidneys are similar in size and contour. There is no hydronephrosis or perinephric stranding. There is a 3 mm nonobstructing left kidney stone. Aorta and IVC are normal. There is no adenopathy. The appendix is normal. There are no obstructive or inflammatory changes of the bowel. There are sigmoid diverticula without evidence of acute diverticulitis. Urinary bladder and uterus are unremarkable. There is a patent umbilical hernia. There are no acute osseous findings. IMPRESSION: 1. Nonobstructing 3 mm left kidney stone. No hydronephrosis. 2. No evidence of acute or inflammatory process.
--- NOTE | 2018-12-12 01:47 | ED ---
Back Pain [facility] - General Chief Complaint: Back Pain/Injury Stated Complaint: Lower Back Pain Time Seen by Provider: 12/11/18 22:56 Source: patient Limitations: no limitations - History of Present Illness Initial Comments: 43-year-old female patient presents to the emergency department today for evaluation of mid back pain and abdominal pain. Patient states she is also experiencing increased gas and bloating. Patient states that symptoms started earlier today while at work. States that her symptoms were worsening throughout the day so she presented here for further evaluation. Patient states she has been nauseated but has not vomited. She reports normal bowel movements with no constipation or diarrhea. Denies fever or chills. She does report decreased urine output today. Denies any hematuria or dysuria. Patient does have past medical history significant for pancreatitis, diverticulosis, and kidney infection. Patient denies any recent rash, shortness breath, chest pain, numbness, tingling, dizziness, weakness, headache, visual changes, or any other complaints. - Related Data Home Medications Medication Instructions Recorded Confirmed Levothyroxine Sodium [Synthroid] 112 mcg PO QAM 05/22/15 05/10/18 metFORMIN HCL [Glucophage] 500 mg PO BID 05/06/16 05/10/18 traZODone HCL [Desyrel] 50 mg PO HS 04/16/17 05/10/18 ALPRAZolam [Xanax] 1 mg PO BID PRN 01/25/18 05/10/18 lamoTRIgine [LaMICtal] 100 mg PO BID 01/25/18 05/10/18 Carboxymethylcellulose Sodium 1 drop BOTH EYES QID 05/09/18 05/10/18 [Refresh Tears] Phentermine HCl [Adipex-P] 37.5 mg PO DAILY 05/09/18 05/10/18 Spironolactone [Aldactone] 25 mg PO DAILY 05/09/18 05/10/18 Topiramate [Topamax] 25 mg PO BID PRN 05/09/18 05/10/18 Vortioxetine Hydrobromide 20 mg PO HS 05/09/18 05/10/18 [Trintellix] busPIRone HCL [Buspar] 7.5 mg PO BID 05/09/18 05/10/18 Previous Rx's Medication Instructions Recorded Ibuprofen [Motrin] 600 mg PO Q8HR PRN #30 tab 12/12/18 Ondansetron [Zofran ODT] 4 mg PO Q8HR PRN #10 tab 12/12/18 Allergies Allergy/AdvReac Type Severity Reaction Status Date / Time gluten Allergy Intermediate Nausea & Verified 12/11/18 22:31 Vomiting & Diarrhea codeine Allergy Mild Itching Verified 12/11/18 22:31 Review of Systems ROS Statement: Those systems with pertinent positive or pertinent negative responses have been documented in the HPI. ROS Other: All systems not noted in ROS Statement are negative. Past Medical History Past Medical History: Asthma, Thyroid Disorder Additional Past Medical History / Comment(s): celiac,chronic back pain,pcos; diverticulitis,pancreatitis, History of Any Multi-Drug Resistant Organisms: MRSA Date of last positivie culture/infection: 2007, MDRO Source:: leg Past Surgical History: Section, Orthopedic Surgery Additional Past Surgical History / Comment(s): Abdominoplasty, devitated septum repair, bilat shoulders, Past Anesthesia/Blood Transfusion Reactions: No Reported Reaction Past Psychological History: Anxiety, Depression Smoking Status: Current every day smoker Past Alcohol Use History: Occasional Past Drug Use History: Marijuana - Past Family History Mother Family Medical History: No Reported History Father Family Medical History: Deep Vein Thrombosis (DVT) General Exam Limitations: no limitations General appearance: alert, in no apparent distress, other (This is a well- developed, well-nourished adult female patient in no acute distress. Vital signs upon presentation are temperature 97.9F, pulse 101, respirations 18, blood pressure 136/60, pulse ox 100% on room air.) Eye exam: Present: normal appearance, PERRL, EOMI. Absent: scleral icterus, conjunctival injection, periorbital swelling ENT exam: Present: normal exam, normal oropharynx, mucous membranes moist Respiratory exam: Present: normal lung sounds bilaterally. Absent: respiratory distress, wheezes, rales, rhonchi, stridor Cardiovascular Exam: Present: regular rate, normal rhythm, normal heart sounds. Absent: systolic murmur, diastolic murmur, rubs, gallop, clicks GI/Abdominal exam: Present: soft, normal bowel sounds. Absent: distended, ten derness, guarding, rebound, rigid Back exam: Present: normal inspection, CVA tenderness (L). Absent: CVA tenderness (R) Neurological exam: Present: alert, oriented X3, CN II-XII intact Psychiatric exam: Present: normal affect, normal mood Skin exam: Present: warm, dry, intact, normal color. Absent: rash Course Vital Signs 12/11/18 12/12/18 22:26 02:05 Temperature 97.9 F 97.1 F L Pulse Rate 101 H 71 Respiratory 18 18 Rate Blood Pressure 136/60 123/71 O2 Sat by Pulse 100 98 Oximetry Medical Decision Making - Medical Decision Making 43-year-old female patient presents to the emergency department today for evaluation of mid back pain and abdominal pain. Physical examination did reveal left CVA tenderness. Lower abdominal tenderness. Labs reviewed and did show evidence for blood in the urine. CT abdomen and pelvis without contrast was obtained and did show a 3 mm nonobstructing stone in the left side but no other abnormalities. I did discuss findings and results with the patient. She'll be discharged home with pain medication nausea medication. She is instructed to follow-up with her primary care physician for recheck in 1-2 days. Return parameters were discussed in detail. She verbalizes understanding and agrees with this plan - Lab Data Result diagrams: 12/11/18 23:40 12/11/18 23:40 Lab Results 12/11/18 12/11/18 12/11/18 Range/Units 22:31 22:31 23:40 WBC (3.8-10.6) k/uL RBC (3.80-5.40) m/uL Hgb (11.4-16.0) gm/dL Hct (34.0-46.0) % MCV (80.0-100.0) fL MCH (25.0-35.0) pg MCHC (31.0-37.0) g/dL RDW (11.5-15.5) % Plt Count (150-450) k/uL Neutrophils % % Lymphocytes % % Monocytes % % Eosinophils % % Basophils % % Neutrophils # (1.3-7.7) k/uL Lymphocytes # (1.0-4.8) k/uL Monocytes # (0-1.0) k/uL Eosinophils # (0-0.7) k/uL Basophils # (0-0.2) k/uL Sodium 139 (137-145) mmol/L Potassium 3.8 (3.5-5.1) mmol/L Chloride 105 (98-107) mmol/L Carbon Dioxide 23 (22-30) mmol/L Anion Gap 11 mmol/L BUN 20 H (7-17) mg/dL Creatinine 0.63 (0.52-1.04) mg/dL Est GFR (CKD-EPI)AfAm >90 (>60 ml/min/1.73 sqM) Est GFR (CKD-EPI)NonAf >90 (>60 ml/min/1.73 sqM) Glucose 118 H (74-99) mg/dL Plasma Lactic Acid Quinn (0.7-2.0) mmol/L Calcium 9.5 (8.4-10.2) mg/dL Total Bilirubin 0.3 (0.2-1.3) mg/dL AST 33 (14-36) U/L ALT 20 (9-52) U/L Alkaline Phosphatase 54 (38-126) U/L Total Protein 7.0 (6.3-8.2) g/dL Albumin 4.3 (3.5-5.0) g/dL Amylase 38 (30-110) U/L Lipase 113 (23-300) U/L Urine Color Yellow Urine Appearance Clear (Clear) Urine pH 5.5 (5.0-8.0) Ur Specific [place] 1.037 H (1.001-1.035) Urine Protein 1+ H (Negative) Urine Glucose (UA) Negative (Negative) Urine Ketones Negative (Negative) Urine Blood Moderate H (Negative) Urine Nitrite Negative (Negative) Urine Bilirubin Negative (Negative) Urine Urobilinogen <2.0 (<2.0) mg/dL Ur Leukocyte Esterase Negative (Negative) Urine RBC 32 H (0-5) /hpf Urine WBC 2 (0-5) /hpf Ur Squamous Epith Cells 1 (0-4) /hpf Urine Mucus Rare H (None) /hpf Urine HCG, Qual Not Detected (Not Detectd) 12/11/18 12/11/18 Range/Units 23:40 23:40 WBC 9.2 (3.8-10.6) k/uL RBC 4.56 (3.80-5.40) m/uL Hgb 12.6 (11.4-16.0) gm/dL Hct 39.2 (34.0-46.0) % MCV 86.0 (80.0-100.0) fL MCH 27.7 (25.0-35.0) pg MCHC 32.2 (31.0-37.0) g/dL RDW 13.2 (11.5-15.5) % Plt Count 270 (150-450) k/uL Neutrophils % 58 % Lymphocytes % 31 % Monocytes % 4 % Eosinophils % 5 % Basophils % 1 % Neutrophils # 5.3 (1.3-7.7) k/uL Lymphocytes # 2.8 (1.0-4.8) k/uL Monocytes # 0.4 (0-1.0) k/uL Eosinophils # 0.4 (0-0.7) k/uL Basophils # 0.1 (0-0.2) k/uL Sodium (137-145) mmol/L Potassium (3.5-5.1) mmol/L Chloride (98-107) mmol/L Carbon Dioxide (22-30) mmol/L Anion Gap mmol/L BUN (7-17) mg/dL Creatinine (0.52-1.04) mg/dL Est GFR (CKD-EPI)AfAm (>60 ml/min/1.73 sqM) Est GFR (CKD-EPI)NonAf (>60 ml/min/1.73 sqM) Glucose (74-99) mg/dL Plasma Lactic Acid Quinn 1.5 (0.7-2.0) mmol/L Calcium (8.4-10.2) mg/dL Total Bilirubin (0.2-1.3) mg/dL AST (14-36) U/L ALT (9-52) U/L Alkaline Phosphatase (38-126) U/L Total Protein (6.3-8.2) g/dL Albumin (3.5-5.0) g/dL Amylase (30-110) U/L Lipase (23-300) U/L Urine Color Urine Appearance (Clear) Urine pH (5.0-8.0) Ur Specific [place] (1.001-1.035) Urine Protein (Negative) Urine Glucose (UA) (Negative) Urine Ketones (Negative) Urine Blood (Negative) Urine Nitrite (Negative) Urine Bilirubin (Negative) Urine Urobilinogen (<2.0) mg/dL Ur Leukocyte Esterase (Negative) Urine RBC (0-5) /hpf Urine WBC (0-5) /hpf Ur Squamous Epith Cells (0-4) /hpf Urine Mucus (None) /hpf Urine HCG, Qual (Not Detectd) - Radiology Data Radiology results: report reviewed, image reviewed CT abdomen and pelvis without contrast is obtained. Report was reviewed in its entirety. Impression by Dr. Panchal shows nonobstructing 3 mm left kidney stone. No hydronephrosis. No evidence of acute inflammatory process. Disposition Clinical Impression: Back pain, Abdominal pain Disposition: HOME SELF-CARE Condition: Good Instructions (If sedation given, give patient instructions): Abdominal Pain (ED), Back Pain (ED) Additional Instructions: Increase fluids. Take medications as directed. Follow-up with your primary care physician for recheck in 1-2 days. Return to the emergency department immediately for any new, worsening, or concerning symptoms. Prescriptions: Ibuprofen [Motrin] 600 mg PO Q8HR PRN #30 tab PRN Reason: Pain Ondansetron [Zofran ODT] 4 mg PO Q8HR PRN #10 tab PRN Reason: Nausea Is patient prescribed a controlled substance at d/c from ED?: No Referrals: Lorraine Redd MD [Primary Care Provider] - 1-2 days Time of Disposition: 01:47
[2018-12-12] MEDS ORDERED: traMADol 50 MG STARTER PACK 3 TAB BTL PO STA (01:48)
[2018-12-12 02:06] VITALS: BP 123/71; PULSE 71; TEMP 97.1
== END 2018-12-12 02:06 | disposition home or self-care (01) ==
LOC: EC 22:24
DX: N20.0 Calculus of kidney (principal); E07.9 Disorder of thyroid, unspecified; F17.200 Nicotine dependence, unspecified, uncomplicated; Z79.890 Hormone replacement therapy; Z79.84 Long term (current) use of oral hypoglycemic drugs; Z79.899 Other long term (current) drug therapy; Z88.5 Allergy status to narcotic agent; Z91.048 Other nonmedicinal substance allergy status; Z87.19 Personal history of other diseases of the digestive system; Z98.890 Other specified postprocedural states
CPT/HCPCS: 36415; 80053; 82150; 83605; 83690; 85025; 81001; 81025; 74176; 99284; 96374; 96375 ×2; 96361 ×2; J2405; J1885; J1170

== ENCOUNTER → 2019-03-19 | Outpatient (CLI) | payer OTHER ==
[2019-03-19 12:18] LABS: Basophils # (A) 0.2 k/uL (0-0.2); Basophils % (A) 1 %; Eosinophils # (A) 0.1 k/uL (0-0.7); Eosinophils % (A) 0 %; HCT 43.5 % (34.0-46.0); HGB 14.1 gm/dL (11.4-16.0); Lymphocytes # (A) 2.2 k/uL (1.0-4.8); Lymphocytes % (A) 16 %; MCH 28.8 pg (25.0-35.0); MCHC 32.5 g/dL (31.0-37.0); MCV 88.7 fL (80.0-100.0); Mean Platelet Volume 6.2; Monocytes # (A) 0.5 k/uL (0-1.0); Monocytes % (A) 4 %; Neutrophils # (A) 10.5 k/uL (1.3-7.7); Neutrophils % (A) 77 %; Platelet Count 397 k/uL (150-450); RDW 13.2 % (11.5-15.5); WBC 13.7 k/uL (3.8-10.6)
[2019-03-19 14:49] LABS: Erythrocyte Sedimentation Rate 2 mm/hr (0-20)
[2019-03-19 15:55] LABS: T4, Free (Free Thyroxine) 0.9 ng/dL (0.80-1.80)
[2019-03-19 16:18] LABS: Thyroid Peroxidase Antibodies 2082.7 U/mL (0.0-60.0)
== END | disposition home or self-care (01) ==
LOC: LABWHC1 10:56
PROVIDERS: ATTEND Internal Medicine
DX: E03.9 Hypothyroidism, unspecified (principal); R22.1 Localized swelling, mass and lump, neck; R00.0 Tachycardia, unspecified
CPT/HCPCS: 36415; 84439; 84443; 84481; 85025; 85652; 86038; 86376; 86431; 86800

== ENCOUNTER → 2019-04-02 | Outpatient (CLI) | payer OTHER ==
--- NOTE | 2019-04-03 07:02 | US ---
EXAMINATION TYPE: US thyroid st tissue head/neck DATE OF EXAM: 04/02/2019 COMPARISON: NONE CLINICAL HISTORY: R22.1 NECK MASS. cande's GLAND SIZE: Right Lobe: 5.0 x 1.4 x 1.7 cm Overall Parenchyma: heterogenous Left Lobe: 3.6 x 1.3 x 1.7 cm Overall Parenchyma: heterogeneous Isthmus Thickness: .3 cm NODULES RIGHT: # of nodules measured on right: 0 LEFT: # of nodules measured on left: 0 ISTHMUS: # of nodules measured in the isthmus: 0 Bilateral neck scanned, no evidence of lymphadenopathy. IMPRESSION: Thyromegaly correlate for thyroiditis. No sizable nodules identified.
== END | disposition home or self-care (01) ==
LOC: RADUSWWP 16:50
PROVIDERS: ATTEND Internal Medicine
DX: E01.0 Iodine-deficiency related diffuse (endemic) goiter (principal)
CPT/HCPCS: 76536

== ENCOUNTER → 2019-04-13 | Outpatient (CLI) | payer OTHER ==
--- NOTE | 2019-04-16 10:31 | MM ---
Reason for exam: screening (asymptomatic). Last mammogram was performed 5 years ago. History: Family history of breast cancer in paternal aunt. Taking hormonal contraceptives for 4 months. Physical Findings: A clinical breast exam by your physician is recommended on an annual basis and results should be correlated with mammographic findings. MG 3D Screening Mammo W/Cad Bilateral CC and MLO view(s) were taken. Prior study comparison: March 29, 2014, bilateral MG screening mammo w CAD. April 03, 2013, bilateral digital screening mammo w/CAD. There are scattered fibroglandular densities. Stable benign calcifications. There is no discrete abnormality. No significant changes when compared with prior studies. ASSESSMENT: Benign, BI-RAD 2 RECOMMENDATION: Routine screening mammogram of both breasts in 1 year.
== END | disposition home or self-care (01) ==
LOC: RADMAMWWP 08:29
PROVIDERS: ATTEND Internal Medicine
DX: Z12.31 Encounter for screening mammogram for malignant neoplasm of breast (principal)
CPT/HCPCS: 77063; 77067

== ENCOUNTER → 2019-05-24 | Outpatient (CLI) | payer OTHER | END | disposition home or self-care (01) | LOC: LABWHC1 09:16 | PROVIDERS: ATTEND Internal Medicine | DX: E06.9 Thyroiditis, unspecified (principal); E03.9 Hypothyroidism, unspecified | CPT/HCPCS: 36415; 84439; 84443; 84481 ==

== ENCOUNTER → 2019-10-10 | Outpatient (CLI) | payer OTHER ==
[2019-10-10 15:18] LABS: Basophils # (A) 0.1 k/uL (0-0.2); Basophils % (A) 1 %; Eosinophils # (A) 0.4 k/uL (0-0.7); Eosinophils % (A) 4 %; HGB 13.3 gm/dL (11.4-16.0); Lymphocytes # (A) 2.1 k/uL (1.0-4.8); Lymphocytes % (A) 26 %; MCH 28.6 pg (25.0-35.0); MCHC 31.7 g/dL (31.0-37.0); MCV 90.2 fL (80.0-100.0); Mean Platelet Volume 6.8; Monocytes # (A) 0.3 k/uL (0-1.0); Monocytes % (A) 4 %; Neutrophils # (A) 5.2 k/uL (1.3-7.7); Neutrophils % (A) 63 %; Platelet Count 262 k/uL (150-450); RBC 4.66 m/uL (3.80-5.40); RDW 13.2 % (11.5-15.5); WBC 8.3 k/uL (3.8-10.6)
[2019-10-10 15:26] LABS: Potassium 4.9 mmol/L (3.5-5.1)
== END | disposition home or self-care (01) ==
LOC: LABPAT 14:46
PROVIDERS: ATTEND Orthopaedic Surgery
DX: Z01.818 Encounter for other preprocedural examination (principal); M23.92 Unspecified internal derangement of left knee
CPT/HCPCS: 36415; 80051; 85025

== ENCOUNTER 2019-10-18 12:08 | Day surgery (SDC) | payer OTHER ==
[2019-10-17 11:21] VITALS: BMI 39.9
--- NOTE | 2019-10-17 14:02 | HP ---
HISTORY AND PHYSICAL Surgery is scheduled for 10/18/2019. Socorro Cortez is a 44-year-old patient seen with progressive left knee pain. We discussed options for treatment. She elected to proceed with arthroscopy. Consent regarding the procedure was obtained. PAST MEDICAL HISTORY: Hypertension, hypothyroidism, qog-xiwajgt-juvugvbxk diabetes. PAST SURGICAL HISTORY: section, cholecystectomy, tonsillectomy, shoulder arthroscopy. MEDICATIONS: Metformin, Synthroid, Klonopin, Prilosec, Strattera. ALLERGIES: CODEINE. SOCIAL HISTORY: She denies tobacco use. PHYSICAL EXAMINATION: Evaluation of her left knee: Her range of motion 0-120. There is a moderate effusion present. Tenderness medial joint line. Positive medial Jose Manuel's. Ligaments stable. Hip rotation without pain. Distal neurovascular exam is intact. Left knee radiographs revealed mild to moderate osteoarthritic changes. Left knee MRI revealed medial meniscal tear. IMPRESSION: 1. Internal derangement, left knee with medial meniscal tear. 2. Hypertension. 3. Hypothyroidism. 4. Gpx-sefdtew-mkkbgoimg diabetes. PLAN: Left knee arthroscopy with partial meniscectomy, partial synovectomy and debridement. MMODL / IJN: [id number] /
[~2019-10-18 12:08] MED LIST changes: +DEXAMETHASONE SOD PHOSPHATE 10 MG/ML 1 ML VIAL IV ONE; -LIDOCAINE 1% 20 ML VIAL (10MG/ML) FOR IV START INTRADERMA PRN; +ONDANSETRON 4 MG/2 ML VIAL IVP ONE
[2019-10-18] MEDS ORDERED: ONDANSETRON 4 MG/2 ML VIAL ONE (12:43)
[2019-10-18] MEDS ORDERED: PROPOFOL 10 MG/ML 20 ML VIAL IV ONE (13:57)
[2019-10-18] MEDS ORDERED: MIDAZOLAM 2 MG/2 ML VIAL ONE (13:57)
[2019-10-18] MEDS ORDERED: KETOROLAC 30 MG/ML 1 ML VIAL ONE (13:57)
[2019-10-18] MEDS ORDERED: fentaNYL (PF) 50 MCG/ML 2 ML AMP ONE (13:57)
[2019-10-18] MEDS ORDERED: BUPIVACAIN-EPI 0.25%-1:200,000 30 ML VIAL INTRAARTIC ONE (14:14)
--- NOTE | 2019-10-18 14:47 | P.OP ---
Date of Procedure: 10/18/19 Preoperative Diagnosis: Internal derangement left knee Postoperative Diagnosis: 1. Tear medial meniscus left knee 2. 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 Reactive synovitis medial, lateral and suprapatellar compartments left knee Procedure(s) Performed: 1. Arthroscopic partial medial meniscectomy left knee 2. Arthroscopic chondroplasty medial femoral condyle left knee 3. Arthroscopic chondroplasty patellofemoral joint left knee 4. Arthroscopic partial synovectomy medial, lateral and suprapatellar compartments left knee Anesthesia: BRENT, local Surgeon: Oc Gama Estimated Blood Loss (ml): 10 Pathology: none sent Condition: stable Disposition: PACU Indications for Procedure: 44 -year-old patient seen with progressive left knee pain. After having treatment options discussed, she elected to proceed with arthroscopy. Operative Findings: See description of procedure Description of Procedure: Patient was taken to the operative suite. Patient underwent a general anesthetic by the department of anesthesia. Patient was given preoperative antibiotics. The left lower extremity was placed in a well-padded arthroscopic leg alexandre. The left leg was prepped and draped in the normal sterile orthopedic fashion. A lateral parapatellar and suprapatellar incision was made. Trochars were inserted. Arthroscopy was initiated. Suprapatellar pouch revealed diffuse thick reactive synovitis. The patellofemoral joint appeared to articulate congruently. There was grade 3/4 chondromalacia of the patellofemoral joint with some obvious areas of exposed bone in the femoral sulcus. The scope was guided into the medial gutter. No loose bodies or plica were identified. The scope was then guided into the medial compartment. A medial parapatellar incision was made. Trocar inserted followed by probe. There was a tear involving the posterior horn/root medial meniscus. There were grade 1/2 chondromalacia changes of the medial femoral condyle. There was reactive synovitis anteriorly. I performed a partial medial meniscectomy. I performed a chondroplasty of the medial femoral condyle. I performed a partial synovectomy. There was good decompression of the synovitis. The residual meniscus was stable. Scope and probe were then guided into the intercondylar notch. Cruciates were identified, probed and found to be stable. The scope and probe were then guided into lateral compartment. Lateral meniscus revealed some mild fraying along the mid body and anterior horn area. There was no significant chondromalacia. There was reactive synovitis anteriorly. I performed a partial synovectomy. I debrided that area fraying of lateral meniscus. There was good decompression of synovitis. The scope was in guided back into the suprapatellar compartment. I introduced a motorized shaver into the suprapatellar compartment. I performed a chondroplasty of the femoral sulcus and patella getting down to stable osteochondral tissue. I performed a partial synovectomy decompressing the thick reactive synovitis. The shaver was removed. It was good decompression of synovitis. Again noted exposed bone and femoral sulcus area. There was no osteochondral flap tears present this point. The residual osteochondral surface was stable. I took one more look on the entire knee, no residual debris. Instruments were now removed from the joint. The joint was infiltrated with .25% Marcaine. Steri-Strips were applied to the portal sites. Sterile dressings were applied. The patient was placed into a MOSHE hose. No tourniquet was utilized. The patient was awakened, transferred to a bed and taken to recovery stable satisfactory condition.
[2019-10-18 14:48] VITALS: TEMP 97.2
[2019-10-18] MEDS: HYDROmorphone 0.5 MG/0.5 ML SYRINGE IVP PRN ×4 (14:52→15:12)
[2019-10-18 15:57] VITALS: RESP 16
[2019-10-18 16:02] VITALS: BP 147/79; PULSE 75
== END 2019-10-18 16:15 | disposition home or self-care (01) ==
LOC: OR 12:08
PROVIDERS: ATTEND Orthopaedic Surgery
DX: S83.242A Other tear of medial meniscus, current injury, left knee, initial encounter (principal); M94.262 Chondromalacia, left knee; M65.862 Other synovitis and tenosynovitis, left lower leg; I10 Essential (primary) hypertension; E03.9 Hypothyroidism, unspecified; F17.210 Nicotine dependence, cigarettes, uncomplicated; E11.9 Type 2 diabetes mellitus without complications; E66.01 Morbid (severe) obesity due to excess calories; E28.2 Polycystic ovarian syndrome; Z90.49 Acquired absence of other specified parts of digestive tract; Z90.89 Acquired absence of other organs; Z98.890 Other specified postprocedural states; Z79.84 Long term (current) use of oral hypoglycemic drugs; Z79.890 Hormone replacement therapy; Z88.5 Allergy status to narcotic agent; Z98.891 History of uterine scar from previous surgery; Z91.02 Food additives allergy status; Z68.41 Body mass index [BMI] 40.0-44.9, adult; Z79.899 Other long term (current) drug therapy; Z79.3 Long term (current) use of hormonal contraceptives; X58.XXXA Exposure to other specified factors, initial encounter
CPT/HCPCS: 29881; 29876; J2250; J1100; J0690; J2405; J3010; J1885; J2704; J1170

== ENCOUNTER → 2020-03-10 | Outpatient (CLI) | payer OTHER ==
[2020-03-10 13:09] LABS: Basophils # (A) 0.1 k/uL (0-0.2); Basophils % (A) 1 %; Eosinophils # (A) 0.4 k/uL (0-0.7); Eosinophils % (A) 4 %; HCT 45.9 % (34.0-46.0); HGB 15.4 gm/dL (11.4-16.0); Lymphocytes % (A) 18 %; MCH 29.7 pg (25.0-35.0); MCHC 33.6 g/dL (31.0-37.0); MCV 88.4 fL (80.0-100.0); Mean Platelet Volume 6.8; Monocytes # (A) 0.4 k/uL (0-1.0); Monocytes % (A) 4 %; Neutrophils # (A) 7.6 k/uL (1.3-7.7); Neutrophils % (A) 71 %; Platelet Count 295 k/uL (150-450); RBC 5.19 m/uL (3.80-5.40); RDW 12.4 % (11.5-15.5); WBC 10.7 k/uL (3.8-10.6)
[2020-03-10 13:18] LABS: Potassium 4.9 mmol/L (3.5-5.1)
== END | disposition home or self-care (01) ==
LOC: LABPAT 11:37
PROVIDERS: ATTEND Orthopaedic Surgery
DX: M23.91 Unspecified internal derangement of right knee (principal)
CPT/HCPCS: 36415; 80051; 85025

== ENCOUNTER 2020-03-13 13:26 | Day surgery (SDC) | payer OTHER ==
[2020-03-11 15:07] VITALS: BMI 39.6
--- NOTE | 2020-03-12 20:18 | HP ---
HISTORY AND PHYSICAL DATE OF SURGERY: 03/13/2020 Socorro Cortez is a 45-year-old patient seen with progressive right knee pain. We discussed options for treatment. She elected to proceed with arthroscopy. Consent was obtained. PAST MEDICAL HISTORY: Hypertension, hypothyroidism, [id number] diabetes. PAST SURGICAL HISTORY: Abdominoplasty, section, cholecystectomy, tonsillectomy, shoulder arthroscopy. DAILY MEDICATIONS: Metformin, Synthroid, buspirone, Prilosec, hydrochlorothiazide. ALLERGIES: CODEINE. SOCIAL HISTORY: Denies tobacco use. PHYSICAL EXAMINATION: Evaluation of the right knee, her range of motion is -3 to 100. She has a mild effusion. Tenderness medial joint line. Positive medial Jose Manuel's. Crepitus medial compartment. Ligaments stable. Hip rotation without pain. Distal neurovascular exam intact. RADIOGRAPHS: Radiographs of the right knee revealed moderate osteoarthritis. An MRI of the right knee revealed medial meniscal tear. IMPRESSION: 1. Internal derangement, right knee with medial meniscal tear. 2. Hypertension. 3. Hypothyroidism. PLAN: Right knee arthroscopy with partial meniscectomy and debridement. MMODL / IJN: [id number] /
[~2020-03-13 13:26] MED LIST changes: -DEXAMETHASONE SOD PHOSPHATE 10 MG/ML 1 ML VIAL IV ONE; +DEXAMETHASONE SOD PHOSPHATE 4 MG/ML 1 ML VIAL IV ONE; +LIDOCAINE 1% (10MG/ML) FOR IV START INTRADERMA PRN; +MIDAZOLAM 2 MG/2 ML VIAL IV PRN
[2020-03-13 13:57] LABS: Glucose,Whole Blood 88 mg/dL (75-99)
[2020-03-13] MEDS ORDERED: MIDAZOLAM 2 MG/2 ML VIAL IVP ONE (14:00)
[2020-03-13] MEDS ORDERED: fentaNYL (PF) 50 MCG/ML 2 ML AMP ONE (14:00)
[2020-03-13] MEDS ORDERED: SUCCINYLCHOLINE CHLORIDE VIAL 200 MG/10 ML VIAL IV ONE (14:00)
[2020-03-13] MEDS ORDERED: PROPOFOL 10 MG/ML 20 ML VIAL IV ONE (14:00)
[2020-03-13] MEDS ORDERED: LIDOCAINE 1% INJ 10MG/ML (20 ML MDV) ONE (14:00)
[2020-03-13] MEDS ORDERED: BUPIVACAINE (PF) 0.25% 30 ML VIAL INTRAARTIC ONE (14:25)
--- NOTE | 2020-03-13 14:50 | P.OP ---
Date of Procedure: 03/13/20 Preoperative Diagnosis: Internal derangement right knee Postoperative Diagnosis: 1. Tear medial meniscus right knee 2. Grade 2/3 chondromalacia medial femoral condyle right knee 3. Grade 3/4 chondromalacia patellofemoral joint right knee 4. Reactive synovitis medial, lateral and suprapatellar compartments right knee Procedure(s) Performed: 1. Arthroscopic partial medial meniscectomy right knee 2. Arthroscopic chondroplasty medial femoral condyle right knee 3. Arthroscopic chondroplasty patellofemoral joint right knee 4. Arthroscopic partial synovectomy medial, lateral and suprapatellar compartments right knee Anesthesia: BRENT, local Surgeon: Oc Gama Estimated Blood Loss (ml): 8 Pathology: none sent Condition: stable Disposition: PACU Indications for Procedure: 45-year-old patient seen with progressive right knee pain. After treatment options were discussed, she elected to proceed with arthroscopy. Operative Findings: See description of procedure Description of Procedure: Patient was taken to the operative suite. Patient underwent a general anesthetic by the department of anesthesia. Patient was given preoperative antibiotics. The right lower extremity was placed in a well-padded arthroscopic leg alexandre. The right leg was prepped and draped in the normal sterile orthopedic fashion. A lateral parapatellar and suprapatellar incision was made. Trochars were inserted. Arthroscopy was initiated. Suprapatellar pouch revealed diffuse thick reactive synovitis. The patellofemoral joint appeared radicular congruently. There was grade 3/4 chondromalacia of the patellofemoral joint with diffuse osteochondral flap tears.. The scope was guided into the medial gutter. No loose bodies or plica were identified. The scope was then guided into the medial compartment. A medial parapatellar incision was made. Trocar inserted followed by probe. There was a radial tear posterior horn medial meniscus. There were grade 2/3 chondromalacia changes of the medial femoral condyle with some diffuse osteochondral flap tears present. There was thick reactive synovitis anteriorly. I performed a partial medial meniscectomy getting down to stable tissue. I performed a chondroplasty of the medial femoral condyle down to stable tissue. I performed a partial synovectomy decompressing the reactive synovitis. The residual meniscus was stable. The residual osteochondral surface appeared stable. There was good decompression of the synovitis. Scope and probe were then guided into the intercondylar notch. Cruciates were identified, probed and found to be stable. The scope and probe were then guided into lateral compartment. Lateral meniscus was probed and found to be stable. There was mild grade 1 chondromalacia changes of the tibial plateau. There was some thick reactive synovitis anteriorly. I introduced a motorized shaver and performed a partial synovectomy. The shaver was removed. There was good decompression of the synovitis. The scope was in guided back into the suprapatellar compartment. I introduced a motorized shaver into the suprapatellar compartment. I debrided some piecemeal fragments of meniscus I encountered. I performed a partial synovectomy. I performed a chondroplasty of the patellofemoral joint getting down to stable osteochondral tissue. The shaver was removed. The residual osteochondral surface of the patellofemoral joint was stable. There was good decompression of the synovitis. I took one more look around the entire knee, no residual debris. Instruments were now removed from the joint. The joint was infiltrated with .25% Marcaine. Steri- Strips were applied to the portal sites. Sterile dressings were applied. The patient was placed into a MOSHE hose. No tourniquet was utilized. The patient was awakened, transferred to a bed and taken to recovery stable satisfactory condition.
[2020-03-13 14:58] VITALS: TEMP 07
[2020-03-13] MEDS: HYDROmorphone 0.5 MG/0.5 ML SYRINGE IVP PRN ×4 (14:59→15:40)
[2020-03-13 15:05] LABS: Glucose,Whole Blood 94 mg/dL (75-99)
[2020-03-13] MEDS ORDERED: KETOROLAC 15 MG/ML 1 ML VIAL IVP ONE ×2 (15:06)
[2020-03-13] MEDS: MEPERIDINE 50 MG/ML SYRINGE IVP ONE ×2 (16:06→16:13)
[2020-03-13] MEDS ORDERED: LACTATED RINGERS 1,000 ML IV ONE (16:09)
[2020-03-13] MEDS ORDERED: traMADol 50 MG TAB ONE (16:40)
[2020-03-13] MEDS ORDERED: traMADol 50 MG TAB PO ONE (16:46)
[2020-03-13 17:22] VITALS: BP 139/56; PULSE 99; RESP 20
--- NOTE | 2020-03-17 07:43 | CDI ---
Date: 03.17.2020 CDS/Chopper Gun Operator Name: Tali Blanchard Phone: If any questions, call Ronit Lutz Drywall Stripper at [phone] Patient Name: Socorro Cortez Admit Date 03.13.20 Discharge Date: 03.13.20 ATTENTION: The [facility] Coding Staff appreciate your assistance in clarifying documentation. Please respond to the clarification below the line at the bottom and electronically sign. The [facility] Coding staff will review the response and follow-up if needed. Please note: Queries are made part of the Legal Health Record. If you have any questions, please contact the Drywall Stripper. Dear Dr. Gama In order to code to the greatest specificity and for the greatest reimbursement I need the following information: Please clarify whether the medial meniscus tear was degenerative or injury related. Thank you for your kind consideration. unknown MTDD
== END 2020-03-13 18:15 | disposition home or self-care (01) ==
LOC: OR 13:26
PROVIDERS: ATTEND Orthopaedic Surgery
DX: M23.221 Derangement of posterior horn of medial meniscus due to old tear or injury, right knee (principal); M94.261 Chondromalacia, right knee; M65.861 Other synovitis and tenosynovitis, right lower leg; M17.11 Unilateral primary osteoarthritis, right knee; I10 Essential (primary) hypertension; E03.9 Hypothyroidism, unspecified; E11.9 Type 2 diabetes mellitus without complications; K21.9 Gastro-esophageal reflux disease without esophagitis; F17.210 Nicotine dependence, cigarettes, uncomplicated; Z98.890 Other specified postprocedural states; Z90.49 Acquired absence of other specified parts of digestive tract; Z90.89 Acquired absence of other organs; Z79.84 Long term (current) use of oral hypoglycemic drugs; Z79.890 Hormone replacement therapy; Z79.899 Other long term (current) drug therapy; Z88.5 Allergy status to narcotic agent
CPT/HCPCS: 29881; 81025; J2250; J0330; J1100; J2175; J0690; J2405; J2001; J3010; J1885; J2704; J1170

== ENCOUNTER 2020-10-10 11:00 | Emergency (ER) | payer OTHER ==
[2020-10-10] MEDS ORDERED: SODIUM CHLORIDE 0.9% 1,000 ML IV ONE (11:46)
--- NOTE | 2020-10-10 11:46 | XR ---
EXAMINATION TYPE: XR chest 2V DATE OF EXAM: 10/10/2020 COMPARISON: 09/13/2016 HISTORY: Dysrhythmia TECHNIQUE: Frontal and lateral views of the chest are obtained. FINDINGS: There is no focal air space opacity, pleural effusion, or pneumothorax seen. The cardiac silhouette size is within normal limits. The osseous structures are intact. IMPRESSION: No acute cardiopulmonary process.
[2020-10-10] MEDS ORDERED: LORazepam 2 MG/ML INJ IV STA (11:47)
--- NOTE | 2020-10-10 11:49 | ED ---
General Adult HPI - General Chief complaint: Arrhythmia/Palpitations Stated complaint: Chest pain, rapid heart rate Time Seen by Provider: 10/10/20 11:07 Source: patient, RN notes reviewed, old records reviewed Mode of arrival: ambulatory Limitations: no limitations - History of Present Illness Initial comments: 45-year-old female with palpitations, racing heart sensation. 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 She had previously been on prednisone for currently off this medication. She has a sensation of racing heart and pressure sensation in her chest. No vomiting. No fever. She did have some bilateral lower muscle cramping today. She has been drinking plenty of fluids. - Related Data Home Medications Medication Instructions Recorded Confirmed metFORMIN HCL [Glucophage] 500 mg PO BID 05/06/16 10/10/20 Phentermine HCl [Adipex-P] 37.5 mg PO DAILY 05/09/18 10/10/20 Spironolactone [Aldactone] 25 mg PO DAILY 05/09/18 10/10/20 Naproxen Sodium [Naproxen Sodium 500 mg PO BID 10/17/19 10/10/20 ER] Pantoprazole Sodium [Protonix] 40 mg PO QAM 10/17/19 10/10/20 levonorgestreL [Mirena] 1 each INTRAUTERI DIRECTED 10/17/19 10/10/20 Atomoxetine HCl [Strattera] 80 mg PO DAILY 10/10/20 10/10/20 Baclofen 10 mg PO HS PRN 10/10/20 10/10/20 DULoxetine HCL [Cymbalta] 60 mg PO HS 10/10/20 10/10/20 Levothyroxine Sodium [Synthroid] 150 mcg PO DAILY 10/10/20 10/10/20 busPIRone HCL [Buspar] 30 mg PO BID 10/10/20 10/10/20 hydrOXYzine HCL [Atarax] 25 mg PO TID PRN 10/10/20 10/10/20 traMADol HCl [Ultram] 50 mg PO BID PRN 10/10/20 10/10/20 Allergies Allergy/AdvReac Type Severity Reaction Status Date / Time gluten Allergy Intermediate Nausea & Verified 10/10/20 12:48 Vomiting & Diarrhea codeine Allergy Mild Itching Verified 10/10/20 12:48 Review of Systems ROS Statement: Those systems with pertinent positive or pertinent negative responses have been documented in the HPI. ROS Other: All systems not noted in ROS Statement are negative. Past Medical History Past Medical History: Asthma, Thyroid Disorder Additional Past Medical History / Comment(s): celiac,chronic back pain,pcos; diverticulitis,pancreatitis, History of Any Multi-Drug Resistant Organisms: MRSA Date of last positivie culture/infection: 2007, MDRO Source:: leg Past Surgical History: Section, Orthopedic Surgery Additional Past Surgical History / Comment(s): Abdominoplasty, devitated septum repair, bilat shoulders, Past Anesthesia/Blood Transfusion Reactions: No Reported Reaction Past Psychological History: Anxiety, Depression Smoking Status: Current every day smoker Past Alcohol Use History: Occasional Past Drug Use History: Marijuana - Past Family History Mother Family Medical History: No Reported History Father Family Medical History: Deep Vein Thrombosis (DVT) General Exam Limitations: no limitations General appearance: alert, in no apparent distress Head exam: Present: atraumatic, normocephalic Eye exam: Present: normal appearance, PERRL Neck exam: Present: normal inspection Respiratory exam: Present: normal lung sounds bilaterally. Absent: respiratory distress Cardiovascular Exam: Present: regular rate, normal rhythm GI/Abdominal exam: Present: soft. Absent: distended, tenderness, guarding Extremities exam: Present: normal inspection, normal capillary refill. Absent: pedal edema Neurological exam: Present: alert, oriented X3, CN II-XII intact. Absent: motor sensory deficit Psychiatric exam: Present: anxious Skin exam: Present: warm, dry, intact. Absent: cyanosis, diaphoretic Course Vital Signs 10/10/20 10/10/20 11:04 11:57 Temperature 97.7 F Pulse Rate 88 86 Respiratory 20 18 Rate Blood Pressure 197/117 128/77 O2 Sat by Pulse 100 97 Oximetry EKG Findings - EKG Comments: EKG Findings:: EKG: Normal sinus rhythm, rate of 82, NC interval 146, QRS duration 90, QTC 441, no ST segment elevation Medical Decision Making - Medical Decision Making 45-year-old female with palpitation. Workup reveals EKG showing sinus rhythm, chest x-ray negative for acute cardio pulmonary disease. Patient has normal CBC, normal CMP, negative troponin, normal TSH. She is currently awaiting referral for continued workup of her rheumatological conditions. She is planning on returning to the [facility] for continued evaluation. She will follow with her primary care physician. She will return with worsening or changing symptoms. - Lab Data Result diagrams: 10/10/20 11:33 10/10/20 11:33 Lab Results 10/10/20 10/10/20 10/10/20 Range/Units 11:33 11:33 11:33 WBC 9.4 (3.8-10.6) k/uL RBC 5.12 (3.80-5.40) m/uL Hgb 14.3 (11.4-16.0) gm/dL Hct 44.6 (34.0-46.0) % MCV 87.2 (80.0-100.0) fL MCH 28.0 (25.0-35.0) pg MCHC 32.1 (31.0-37.0) g/dL RDW 13.6 (11.5-15.5) % Plt Count 312 (150-450) k/uL MPV 6.7 Neutrophils % 63 % Lymphocytes % 25 % Monocytes % 5 % Eosinophils % 5 % Basophils % 1 % Neutrophils # 5.9 (1.3-7.7) k/uL Lymphocytes # 2.3 (1.0-4.8) k/uL Monocytes # 0.4 (0-1.0) k/uL Eosinophils # 0.5 (0-0.7) k/uL Basophils # 0.1 (0-0.2) k/uL PT 9.6 (9.0-12.0) sec INR 0.9 (<1.2) APTT 22.8 (22.0-30.0) sec Sodium 141 (137-145) mmol/L Potassium 4.2 (3.5-5.1) mmol/L Chloride 106 (98-107) mmol/L Carbon Dioxide 29 (22-30) mmol/L Anion Gap 6 mmol/L BUN 11 (7-17) mg/dL Creatinine 0.61 (0.52-1.04) mg/dL Est GFR (CKD-EPI)AfAm >90 (>60 ml/min/1.73 sqM) Est GFR (CKD-EPI)NonAf >90 (>60 ml/min/1.73 sqM) Glucose 81 (74-99) mg/dL Calcium 9.3 (8.4-10.2) mg/dL Magnesium 1.7 (1.6-2.3) mg/dL Total Bilirubin 0.3 (0.2-1.3) mg/dL AST 41 H (14-36) U/L ALT 27 (4-34) U/L Alkaline Phosphatase 103 (38-126) U/L Troponin I (0.000-0.034) ng/mL Total Protein 7.1 (6.3-8.2) g/dL Albumin 4.5 (3.5-5.0) g/dL TSH 0.726 (0.465-4.680) mIU/L 10/10/20 Range/Units 11:33 WBC (3.8-10.6) k/uL RBC (3.80-5.40) m/uL Hgb (11.4-16.0) gm/dL Hct (34.0-46.0) % MCV (80.0-100.0) fL MCH (25.0-35.0) pg MCHC (31.0-37.0) g/dL RDW (11.5-15.5) % Plt Count (150-450) k/uL MPV Neutrophils % % Lymphocytes % % Monocytes % % Eosinophils % % Basophils % % Neutrophils # (1.3-7.7) k/uL Lymphocytes # (1.0-4.8) k/uL Monocytes # (0-1.0) k/uL Eosinophils # (0-0.7) k/uL Basophils # (0-0.2) k/uL PT (9.0-12.0) sec INR (<1.2) APTT (22.0-30.0) sec Sodium (137-145) mmol/L Potassium (3.5-5.1) mmol/L Chloride (98-107) mmol/L Carbon Dioxide (22-30) mmol/L Anion Gap mmol/L BUN (7-17) mg/dL Creatinine (0.52-1.04) mg/dL Est GFR (CKD-EPI)AfAm (>60 ml/min/1.73 sqM) Est GFR (CKD-EPI)NonAf (>60 ml/min/1.73 sqM) Glucose (74-99) mg/dL Calcium (8.4-10.2) mg/dL Magnesium (1.6-2.3) mg/dL Total Bilirubin (0.2-1.3) mg/dL AST (14-36) U/L ALT (4-34) U/L Alkaline Phosphatase (38-126) U/L Troponin I <0.012 (0.000-0.034) ng/mL Total Protein (6.3-8.2) g/dL Albumin (3.5-5.0) g/dL TSH (0.465-4.680) mIU/L Disposition Clinical Impression: Palpitations Disposition: HOME SELF-CARE Condition: Good Instructions (If sedation given, give patient instructions): Heart Palpitations (ED) Is patient prescribed a controlled substance at d/c from ED?: No Referrals: Lorraine Redd MD [Primary Care Provider] - 1-2 days Time of Disposition: 13:08
[2020-10-10 11:55] LABS: Basophils # (A) 0.1 k/uL (0-0.2); Basophils % (A) 1 %; Eosinophils # (A) 0.5 k/uL (0-0.7); Eosinophils % (A) 5 %; HCT 44.6 % (34.0-46.0); HGB 14.3 gm/dL (11.4-16.0); Lymphocytes # (A) 2.3 k/uL (1.0-4.8); Lymphocytes % (A) 25 %; MCHC 32.1 g/dL (31.0-37.0); MCV 87.2 fL (80.0-100.0); Mean Platelet Volume 6.7; Monocytes # (A) 0.4 k/uL (0-1.0); Monocytes % (A) 5 %; Neutrophils # (A) 5.9 k/uL (1.3-7.7); Neutrophils % (A) 63 %; Platelet Count 312 k/uL (150-450); RBC 5.12 m/uL (3.80-5.40); RDW 13.6 % (11.5-15.5); WBC 9.4 k/uL (3.8-10.6)
[2020-10-10 11:58] VITALS: RESP 18
[2020-10-10 12:03] LABS: ALT 27 U/L (4-34); AST 41 U/L (14-36); African American GFR (CKD) >90 (>60 ml/min/1.73 sqM); Albumin 4.5 g/dL (3.5-5.0); Alkaline Phosphatase 103 U/L (38-126); Anion Gap 6 mmol/L; Blood Urea Nitrogen 11 mg/dL (7-17); Calcium 9.3 mg/dL (8.4-10.2); Carbon Dioxide 29 mmol/L (22-30); Chloride 106 mmol/L (98-107); Glucose 81 mg/dL (74-99); Magnesium 1.7 mg/dL (1.6-2.3); Non-African American GFR(CKD) >90 (>60 ml/min/1.73 sqM); Potassium 4.2 mmol/L (3.5-5.1); Sodium 141 mmol/L (137-145); Total Bilirubin 0.3 mg/dL (0.2-1.3); Total Protein 7.1 g/dL (6.3-8.2)
[2020-10-10 12:08] LABS: INR 0.9 (<1.2); Partial Thromboplastin Time 22.8 sec (22.0-30.0); Prothrombin Time 9.6 sec (9.0-12.0)
[2020-10-10 13:27] VITALS: BP 146/67; PULSE 72; TEMP 97.5
== END 2020-10-10 13:32 | disposition home or self-care (01) ==
LOC: EC 11:00
DX: R00.2 Palpitations (principal); J45.909 Unspecified asthma, uncomplicated; F17.200 Nicotine dependence, unspecified, uncomplicated; F12.90 Cannabis use, unspecified, uncomplicated; E07.9 Disorder of thyroid, unspecified
CPT/HCPCS: 36415; 93005; 80053; 83735; 84443; 84484; 85025; 85610; 85730; 71046; 99285; 96374; 96361 ×2; J2060

== ENCOUNTER 2021-10-25 08:14 | Emergency (ER) | payer OTHER ==
[2021-10-25 08:22] VITALS: TEMP 97.7
[2021-10-25] MEDS ORDERED: ALBUTEROL NEBULIZED 2.5 MG/3 ML INHALATION STA (08:42)
[2021-10-25] MEDS ORDERED: IPRATROPIUM 0.5 MG/2.5 ML NEBU INHALATION STA (08:42)
[2021-10-25 09:09] VITALS: PULSE 87
[2021-10-25 09:27] LABS: Basophils # (A) 0.1 k/uL (0-0.2); Basophils % (A) 1 %; Eosinophils # (A) 0.5 k/uL (0-0.7); Eosinophils % (A) 4 %; HCT 42.3 % (34.0-46.0); HGB 13.7 gm/dL (11.4-16.0); Lymphocytes % (A) 26 %; MCH 29.5 pg (25.0-35.0); MCHC 32.4 g/dL (31.0-37.0); Mean Platelet Volume 6.6; Monocytes # (A) 0.5 k/uL (0-1.0); Monocytes % (A) 5 %; Neutrophils # (A) 7.2 k/uL (1.3-7.7); Neutrophils % (A) 63 %; Platelet Count 339 k/uL (150-450); RBC 4.64 m/uL (3.80-5.40); RDW 12.8 % (11.5-15.5); WBC 11.4 k/uL (3.8-10.6)
--- NOTE | 2021-10-25 09:31 | ED ---
General Adult HPI - General Chief complaint: Shortness of Breath Stated complaint: SOB Time Seen by Provider: 10/25/21 08:20 Source: patient, RN notes reviewed, old records reviewed Mode of arrival: wheelchair Limitations: no limitations - History of Present Illness Initial comments: This a 46-year-old female who presents emergency Department complaining of difficulty breathing. Patient states ever since she had cold 2 months ago she's had difficulty breathing since that time. Patient denies any fever chills per patient denies any chest pain. Patient denies any palpitations. Patient denies any abdominal pain patient denies nausea vomiting diarrhea. Patient states she's has had an inhaler but it has not helped. Patient denies any swelling to her legs but states she's got achiness to her calves and her back. Patient states all these symptoms started when she had COVID and have not resolved. Patient states she has not been worked up for this. - Related Data Home Medications Medication Instructions Recorded Confirmed metFORMIN HCL [Glucophage] 500 mg PO BID 05/06/16 10/10/20 Phentermine HCl [Adipex-P] 37.5 mg PO DAILY 05/09/18 10/10/20 Spironolactone [Aldactone] 25 mg PO DAILY 05/09/18 10/10/20 Naproxen Sodium [Naproxen Sodium 500 mg PO BID 10/17/19 10/10/20 ER] Pantoprazole Sodium [Protonix] 40 mg PO QAM 10/17/19 10/10/20 levonorgestreL [Mirena] 1 each INTRAUTERI DIRECTED 10/17/19 10/10/20 Atomoxetine HCl [Strattera] 80 mg PO DAILY 10/10/20 10/10/20 Baclofen 10 mg PO HS PRN 10/10/20 10/10/20 DULoxetine HCL [Cymbalta] 60 mg PO HS 10/10/20 10/10/20 Glucosamine/Chondr Kim A Sod [Osteo 1 tab PO DAILY 10/10/20 10/10/20 Bi-Flex Caplet] Ibuprofen [Motrin] 400 mg PO BID PRN 10/10/20 10/10/20 Levothyroxine Sodium [Synthroid] 150 mcg PO DAILY 10/10/20 10/10/20 Multivitamins, Thera [Multivitamin 1 tab PO DAILY 10/10/20 10/10/20 (formulary)] A-Gnymeq-B-Cysteine 600mg 1 tab PO DAILY 10/10/20 10/10/20 busPIRone HCL [Buspar] 30 mg PO BID 10/10/20 10/10/20 clonazePAM [KlonoPIN] 0.5 mg PO DAILY PRN 10/10/20 10/10/20 hydrOXYzine HCL [Atarax] 25 mg PO TID PRN 10/10/20 10/10/20 traMADol HCl [Ultram] 50 mg PO BID PRN 10/10/20 10/10/20 Previous Rx's Medication Instructions Recorded Albuterol Inhaler [Ventolin Hfa 1 - 2 puff INHALATION Q6HR PRN #2 10/25/21 Inhaler] each predniSONE [Deltasone] 40 mg PO DAILY #8 tab 10/25/21 Allergies Allergy/AdvReac Type Severity Reaction Status Date / Time gluten Allergy Intermediate Nausea & Verified 10/25/21 08:22 Vomiting & Diarrhea codeine Allergy Mild Itching Verified 10/25/21 08:22 Review of Systems ROS Statement: Those systems with pertinent positive or pertinent negative responses have been documented in the HPI. ROS Other: All systems not noted in ROS Statement are negative. Past Medical History Past Medical History: Asthma, Thyroid Disorder Additional Past Medical History / Comment(s): celiac,chronic back pain,pcos; diverticulitis,pancreatitis, History of Any Multi-Drug Resistant Organisms: MRSA Date of last positivie culture/infection: 2007, MDRO Source:: leg Past Surgical History: Section, Orthopedic Surgery Additional Past Surgical History / Comment(s): Abdominoplasty, devitated septum repair, bilat shoulders, Past Anesthesia/Blood Transfusion Reactions: No Reported Reaction Past Psychological History: Anxiety, Depression Smoking Status: Current every day smoker Past Alcohol Use History: Occasional Past Drug Use History: Marijuana - Past Family History Mother Family Medical History: No Reported History Father Family Medical History: Deep Vein Thrombosis (DVT) General Exam - General Exam Comments Initial Comments: GENERAL: Patient is well-developed and well-nourished. Patient is nontoxic and well- hydrated and is in mild distress. ENT: Neck is soft and supple. No significant lymphadenopathy is noted. Oropharynx is clear. Moist mucous membranes. Neck has full range of motion without eliciting any pain. EYES: The sclera were anicteric and conjunctiva were pink and moist. Extraocular movements were intact and pupils were equal round and reactive to light. Eyelids were unremarkable. PULMONARY: Unlabored respirations. Good breath sounds bilaterally. No audible rales rhonchi or wheezing was noted. CARDIOVASCULAR: There is a regular rate and rhythm without any murmurs gallops or rubs. ABDOMEN: Soft and nontender with normal bowel sounds. SKIN: Skin is clear with no lesions or rashes and otherwise unremarkable. NEUROLOGIC: Patient is alert and oriented x3. Cranial nerves II through XII are grossly intact. Motor and sensory are also intact. Normal speech, volume and content. Symmetrical smile. MUSCULOSKELETAL: Normal extremities with adequate strength and full range of motion. No lower extremity swelling or edema. No calf tenderness. LYMPHATICS: No significant lymphadenopathy is noted PSYCHIATRIC: Normal psychiatric evaluation. Limitations: no limitations Course Vital Signs 10/25/21 10/25/21 10/25/21 08:19 08:42 08:54 Temperature 97.7 F Pulse Rate 90 83 Respiratory 18 18 Rate Blood Pressure 131/79 O2 Sat by Pulse 100 Oximetry 10/25/21 09:08 Temperature Pulse Rate 87 Respiratory Rate Blood Pressure O2 Sat by Pulse Oximetry Medical Decision Making - Medical Decision Making EKG shows sinus rhythm at 70 bpm FL interval is 157 2 QRS is 92 QT interval 361 QTC is 394. Patient's EKG shows no ST segment elevation or depression. Chest x-ray shows no acute abnormality. Patient received a breathing treatment emergency Department stated that it didn't seem to relieve some of the difficulty breathing. Patient also received Solu-Medrol emergency department. - Lab Data Result diagrams: 10/25/21 09:15 10/25/21 09:15 Lab Results 10/25/21 10/25/21 10/25/21 Range/Units 09:15 09:15 09:15 WBC 11.4 H (3.8-10.6) k/uL RBC 4.64 (3.80-5.40) m/uL Hgb 13.7 (11.4-16.0) gm/dL Hct 42.3 (34.0-46.0) % MCV 91.0 (80.0-100.0) fL MCH 29.5 (25.0-35.0) pg MCHC 32.4 (31.0-37.0) g/dL RDW 12.8 (11.5-15.5) % Plt Count 339 (150-450) k/uL MPV 6.6 Neutrophils % 63 % Lymphocytes % 26 % Monocytes % 5 % Eosinophils % 4 % Basophils % 1 % Neutrophils # 7.2 (1.3-7.7) k/uL Lymphocytes # 3.0 (1.0-4.8) k/uL Monocytes # 0.5 (0-1.0) k/uL Eosinophils # 0.5 (0-0.7) k/uL Basophils # 0.1 (0-0.2) k/uL PT 9.7 (9.0-12.0) sec INR 0.9 (<1.2) APTT 22.8 (22.0-30.0) sec D-Dimer 0.34 (<0.60) mg/L FEU Sodium 134 L (137-145) mmol/L Potassium 4.8 (3.5-5.1) mmol/L Chloride 103 (98-107) mmol/L Carbon Dioxide 26 (22-30) mmol/L Anion Gap 5 mmol/L BUN 21 H (7-17) mg/dL Creatinine 0.63 (0.52-1.04) mg/dL Est GFR (CKD-EPI)AfAm >90 (>60 ml/min/1.73 sqM) Est GFR (CKD-EPI)NonAf >90 (>60 ml/min/1.73 sqM) Glucose 95 (74-99) mg/dL Plasma Lactic Acid Quinn (0.7-2.0) mmol/L Calcium 9.0 (8.4-10.2) mg/dL Total Bilirubin 0.2 (0.2-1.3) mg/dL AST 25 (14-36) U/L ALT 21 (4-34) U/L Alkaline Phosphatase 103 (38-126) U/L Creatine Kinase 45 (30-135) U/L Troponin I (0.000-0.034) ng/mL C-Reactive Protein 1.8 H (<1.0) mg/dL NT-Pro-B Natriuret Pep pg/mL Total Protein 6.4 (6.3-8.2) g/dL Albumin 3.9 (3.5-5.0) g/dL TSH 2.990 (0.465-4.680) mIU/L 10/25/21 10/25/21 10/25/21 Range/Units 09:15 09:15 09:15 WBC (3.8-10.6) k/uL RBC (3.80-5.40) m/uL Hgb (11.4-16.0) gm/dL Hct (34.0-46.0) % MCV (80.0-100.0) fL MCH (25.0-35.0) pg MCHC (31.0-37.0) g/dL RDW (11.5-15.5) % Plt Count (150-450) k/uL MPV Neutrophils % % Lymphocytes % % Monocytes % % Eosinophils % % Basophils % % Neutrophils # (1.3-7.7) k/uL Lymphocytes # (1.0-4.8) k/uL Monocytes # (0-1.0) k/uL Eosinophils # (0-0.7) k/uL Basophils # (0-0.2) k/uL PT (9.0-12.0) sec INR (<1.2) APTT (22.0-30.0) sec D-Dimer (<0.60) mg/L FEU Sodium (137-145) mmol/L Potassium (3.5-5.1) mmol/L Chloride (98-107) mmol/L Carbon Dioxide (22-30) mmol/L Anion Gap mmol/L BUN (7-17) mg/dL Creatinine (0.52-1.04) mg/dL Est GFR (CKD-EPI)AfAm (>60 ml/min/1.73 sqM) Est GFR (CKD-EPI)NonAf (>60 ml/min/1.73 sqM) Glucose (74-99) mg/dL Plasma Lactic Acid Quinn 1.2 (0.7-2.0) mmol/L Calcium (8.4-10.2) mg/dL Total Bilirubin (0.2-1.3) mg/dL AST (14-36) U/L ALT (4-34) U/L Alkaline Phosphatase (38-126) U/L Creatine Kinase (30-135) U/L Troponin I <0.012 (0.000-0.034) ng/mL C-Reactive Protein (<1.0) mg/dL NT-Pro-B Natriuret Pep 35 pg/mL Total Protein (6.3-8.2) g/dL Albumin (3.5-5.0) g/dL TSH (0.465-4.680) mIU/L Disposition Clinical Impression: Dyspnea Disposition: HOME SELF-CARE Condition: Good Instructions (If sedation given, give patient instructions): Dyspnea (ED) Prescriptions: predniSONE [Deltasone] 40 mg PO DAILY #8 tab Albuterol Inhaler [Ventolin Hfa Inhaler] 1 - 2 puff INHALATION Q6HR PRN #2 each PRN Reason: Difficulty breathing Is patient prescribed a controlled substance at d/c from ED?: No Referrals: Nilam Varghese MD [STAFF PHYSICIAN] - 1-2 days Time of Disposition: 10:59
[2021-10-25 09:42] LABS: ALT 21 U/L (4-34); AST 25 U/L (14-36); African American GFR (CKD) >90 (>60 ml/min/1.73 sqM); Albumin 3.9 g/dL (3.5-5.0); Alkaline Phosphatase 103 U/L (38-126); Anion Gap 5 mmol/L; Blood Urea Nitrogen 21 mg/dL (7-17); C Reactive Protein 1.8 mg/dL (<1.0); Carbon Dioxide 26 mmol/L (22-30); Chloride 103 mmol/L (98-107); Creatine Kinase 45 U/L (30-135); Glucose 95 mg/dL (74-99); Non-African American GFR(CKD) >90 (>60 ml/min/1.73 sqM); Potassium 4.8 mmol/L (3.5-5.1); Sodium 134 mmol/L (137-145); Total Bilirubin 0.2 mg/dL (0.2-1.3); Total Protein 6.4 g/dL (6.3-8.2)
[2021-10-25 09:43] LABS: INR 0.9 (<1.2); Prothrombin Time 9.7 sec (9.0-12.0)
[2021-10-25 09:44] LABS: Partial Thromboplastin Time 22.8 sec (22.0-30.0)
--- NOTE | 2021-10-25 09:51 | XR ---
EXAMINATION TYPE: XR chest 2V DATE OF EXAM: 10/25/2021 9:22 AM COMPARISON: Chest radiographs from 10/10/2020 TECHNIQUE: XR chest 2V Frontal and lateral views of the chest. CLINICAL INDICATION:Female, 46 years old with history of difficulty breathing; FINDINGS: Lungs/Pleura: There is no evidence of pleural effusion, focal consolidation, or pneumothorax. Pulmonary vascularity: Unremarkable. Heart/mediastinum: Cardiomediastinal silhouette is unremarkable. Musculoskeletal: No acute osseous pathology. Mild degeneration changes of the acromioclavicular joint s. IMPRESSION: No significant change, acute cardiopulmonary disease/process.
[2021-10-25] MEDS ORDERED: methylPREDNISolone SOD SUCCI 125 MG/2 ML VIAL IV STA (10:55)
[2021-10-25 10:58] VITALS: BP 123/65; RESP 20
== END 2021-10-25 11:23 | disposition home or self-care (01) ==
LOC: EC 08:14
DX: R06.00 Dyspnea, unspecified (principal); J45.909 Unspecified asthma, uncomplicated; E07.9 Disorder of thyroid, unspecified; F17.200 Nicotine dependence, unspecified, uncomplicated; Z79.899 Other long term (current) drug therapy; Z91.048 Other nonmedicinal substance allergy status; Z88.5 Allergy status to narcotic agent
CPT/HCPCS: 36415; 94640; 93005; 85379; 83880; 80053; 84443; 82550; 83605; 84484; 85025; 85610; 85730; 86140; 87040; 71046; 99285; 96374; J2930

== ENCOUNTER 2022-11-21 22:09 | Emergency (ER) | payer OTHER ==
[2022-11-21 23:01] VITALS: RESP 18; TEMP 98.3
--- NOTE | 2022-11-22 03:04 | ED ---
SOB HPI - General Chief Complaint: Back Pain/Injury Stated Complaint: Back and Hip Pain Time Seen by Provider: 11/22/22 01:45 Source: patient Mode of arrival: ambulatory Limitations: no limitations - History of Present Illness Initial Comments: 47-year-old female presenting with chief complaint of lower back pain. Patient states the pain is been ongoing for about 5 weeks. Pain is constant and is on both sides of the neck. Pain radiates down the legs is worse with standing or walking. No saddle paresthesia. Patient states that she has occasionally lost control of her bladder, no loss of bowel control. Patient also admits to "I can hear my heartbeat in my ears very loudly". She states that she noticed it primarily today. No headache, vision or hearing changes, weakness, numbness, tingling, chest pain, difficulty breathing. - Related Data Home Medications Medication Instructions Recorded Confirmed metFORMIN HCL [Glucophage] 500 mg PO BID 05/06/16 12/18/21 Spironolactone [Aldactone] 25 mg PO DAILY 05/09/18 12/18/21 Pantoprazole Sodium [Protonix] 40 mg PO DAILY 10/17/19 12/18/21 DULoxetine HCL [Cymbalta] 120 mg PO HS 10/10/20 12/18/21 Levothyroxine Sodium [Synthroid] 150 mcg PO DAILY 10/10/20 12/18/21 Multivitamins, Thera [Multivitamin 1 tab PO DAILY 10/10/20 12/18/21 (formulary)] J-Eszsgf-[id number]-Cysteine 600mg 1 tab PO DAILY 10/10/20 12/18/21 busPIRone HCL [Buspar] 30 mg PO BID 10/10/20 12/18/21 Albuterol Inhaler [Ventolin Hfa 1 - 2 puff INHALATION RT-Q6H PRN 12/18/21 12/18/21 Inhaler] Atomoxetine HCl [Strattera] 100 mg PO DAILY 12/18/21 12/18/21 traZODone HCL 100 - 200 mg PO HS 12/18/21 12/18/21 Previous Rx's Medication Instructions Recorded Cyclobenzaprine [Flexeril] 10 mg PO TID PRN #20 tab 11/22/22 Lidocaine 5% Patch [Lidoderm 5% 1 patch TOPICAL DAILY PRN #30 patch 11/22/22 Patch] Allergies Allergy/AdvReac Type Severity Reaction Status Date / Time gluten Allergy Intermediate Nausea & Verified 11/21/22 22:54 Vomiting & Diarrhea codeine Allergy Mild Itching Verified 11/21/22 22:54 Review of Systems ROS Statement: Those systems with pertinent positive or pertinent negative responses have been documented in the HPI. ROS Other: All systems not noted in ROS Statement are negative. Past Medical History Past Medical History: Asthma, Thyroid Disorder Additional Past Medical History / Comment(s): celiac,chronic back pain,pcos; diverticulitis,pancreatitis, fibromyalgia History of Any Multi-Drug Resistant Organisms: MRSA Date of last positivie culture/infection: 2007, MDRO Source:: leg Past Surgical History: Section, Orthopedic Surgery Additional Past Surgical History / Comment(s): Abdominoplasty, devitated septum repair, bilat shoulders, Past Anesthesia/Blood Transfusion Reactions: No Reported Reaction Past Psychological History: Anxiety, Depression Smoking Status: Current every day smoker Past Alcohol Use History: Occasional Past Drug Use History: Marijuana - Past Family History Mother Family Medical History: No Reported History Father Family Medical History: Deep Vein Thrombosis (DVT) General Exam Limitations: no limitations General appearance: alert, in no apparent distress Head exam: Present: atraumatic, normocephalic, normal inspection Eye exam: Present: normal appearance, EOMI. Absent: scleral icterus, periorbital swelling Neck exam: Present: normal inspection, full ROM Respiratory exam: Present: normal lung sounds bilaterally. Absent: respiratory distress, wheezes, rales, rhonchi, stridor Cardiovascular Exam: Present: regular rate, normal rhythm, normal heart sounds. Absent: systolic murmur, diastolic murmur, rubs, gallop, clicks Rectal exam: Present: normal inspection, normal rectal tone Neurological exam: Present: alert, oriented X3, CN II-XII intact Psychiatric exam: Present: normal affect, normal mood Skin exam: Present: warm, dry, intact, normal color. Absent: rash Course Vital Signs 11/21/22 11/22/22 22:54 05:29 Temperature 98.3 F Pulse Rate 84 61 Respiratory 18 18 Rate Blood Pressure 146/102 116/55 O2 Sat by Pulse 95 98 Oximetry Medical Decision Making - Medical Decision Making Was pt. sent in by a medical professional or institution (, PA, [facility], urgent care, hospital, or senior care...) When possible be specific @ -No Did you speak to anyone other than the patient for history (EMS, parent, family, police, friend...)? What history was obtained from this source @ -No Did you review nursing and triage notes (agree or disagree)? Why? @ -I reviewed and agree with nursing and triage notes Were old charts reviewed (outside hosp., previous admission, EMS record, old EKG, old radiological studies, urgent care reports/EKG's, senior care records)? Report findings @ -No old charts were reviewed Differential Diagnosis (chest pain, altered mental status, abdominal pain women, abdominal pain men, vaginal bleeding, weakness, fever, dyspnea, syncope, headache, dizziness, GI bleed, back pain, seizure, CVA, palpatations, mental health, musculoskeletal)? @ - MDM Differential Back Pain: Strain, zoster, cauda equina syndrome, epidural abscess, vertebral osteomyelitis, discitis, fracture, subluxation, disc herniation, DJD, spinal stenosis, dissection, AAA, pancreatitis, peptic ulcer disease, pyelonephritis, kidney stone this is not meant to be an all-inclusive list. EKG interpreted by me (3pts min.). @ -As above X-rays interpreted by me (1pt min.). @ -None done CT interpreted by me (1pt min.). @ -Lumbar spine CT shows no acute fracture. No significant spinal canal stenosis. CTA of the head and neck shows no significant stenosis and no aneurysm U/S interpreted by me (1pt. min.). @ -None done What testing was considered but not performed or refused? (CT, X-rays, U/S, labs)? Why? @ -None What meds were considered but not given or refused? Why? @ -None Did you discuss the management of the patient with other professionals (professionals i.e. JAVON Hull, [facility]ER, lab, RT, psych nurse, social insurance adviser, puncher, teacher, surveillance dual rate officer, community case manager)? Give summary @ -No Was smoking cessation discussed for >3mins.? @ -No Was critical care preformed (if so, how long)? @ -No Were there social determinants of health that impacted care today? How? (Homelessness, low income, unemployed, alcoholism, drug addiction, transportation, low edu. Level, literacy, decrease access to med. care, long-term, rehab)? @ -No Was there de-escalation of care discussed even if they declined (Discuss DNR or withdrawal of care, Hospice)? DNR status @ -No What co-morbidities impacted this encounter? (DM, HTN, Smoking, COPD, CAD, Cancer, CVA, ARF, Chemo, Hep., AIDS, mental health diagnosis, sleep apnea, morbid obesity)? @ -None Was patient admitted / discharged? Hospital course, mention meds given and route, prescriptions, significant lab abnormalities, going to OR and other pertinent info. @ -47-year-old female presenting with chief complaint of back pain. Patient has had worsening lower back pain for several weeks. No known injury or trauma. Patient is also complaining of "hearing my heartbeat in my ear". On physical examination there is normal rectal tone. No focal neurological deficits. Lab work shows no acute findings. Negative CT angiogram of the head and neck and CT lumbar spine. Patient reports improvement after Dilaudid. She is given referrals to orthopedic spinal surgery and educated on today's findings. She is instructed to follow-up with her PCP regarding pulsatile tinnitus Follow-up with PCP. Report back to ER with any new or worsening symptoms. Discussed return parameters and answered all questions. Patient conveyed verbal understanding and agreed to the plan. I discussed this case in detail with my attending Dr. Singh Undiagnosed new problem with uncertain prognosis? @ -No Drug Therapy requiring intensive monitoring for toxicity (Heparin, Nitro, Insulin, Cardizem)? @ -No Were any procedures done? @ -No Diagnosis/symptom? @ -Back pain Acute, or Chronic, or Acute on Chronic? @ -Acute on chronic Uncomplicated (without systemic symptoms) or Complicated (systemic symptoms)? @ -Uncomplicated Side effects of treatment? @ -No Exacerbation, Progression, or Severe Exacerbation? @ -No Poses a threat to life or bodily function? How? (Chest pain, [place], [place], pneumonia, PE, COPD, DKA, ARF, appy, cholecystitis, CVA, Diverticulitis, Homicidal, Suicidal, threat to staff... and all critical care pts) @ -No - Lab Data Result diagrams: 11/22/22 03:10 11/22/22 03:10 Lab Results 11/22/22 11/22/22 11/22/22 Range/Units 03:10 03:10 03:10 WBC 10.6 (3.8-10.6) k/uL RBC 4.77 (3.80-5.40) m/uL Hgb 14.2 (11.4-16.0) gm/dL Hct 42.2 (34.0-46.0) % MCV 88.6 (80.0-100.0) fL MCH 29.7 (25.0-35.0) pg MCHC 33.6 (31.0-37.0) g/dL RDW 12.9 (11.5-15.5) % Plt Count 263 (150-450) k/uL MPV 6.9 Neutrophils % 59 % Lymphocytes % 27 % Monocytes % 5 % Eosinophils % 6 % Basophils % 1 % Neutrophils # 6.3 (1.3-7.7) k/uL Lymphocytes # 2.9 (1.0-4.8) k/uL Monocytes # 0.5 (0-1.0) k/uL Eosinophils # 0.7 (0-0.7) k/uL Basophils # 0.1 (0-0.2) k/uL PT 9.5 (9.0-12.0) sec INR 0.9 (<1.2) APTT 22.1 (22.0-30.0) sec Sodium 135 L (137-145) mmol/L Potassium 3.8 (3.5-5.1) mmol/L Chloride 101 (98-107) mmol/L Carbon Dioxide 26 (22-30) mmol/L Anion Gap 8 mmol/L BUN 10 (7-17) mg/dL Creatinine 0.68 (0.52-1.04) mg/dL Est GFR (CKD-EPI)AfAm >90 (>60 ml/min/1.73 sqM) Est GFR (CKD-EPI)NonAf >90 (>60 ml/min/1.73 sqM) Glucose 105 H (74-99) mg/dL Calcium 9.3 (8.4-10.2) mg/dL Total Bilirubin 0.3 (0.2-1.3) mg/dL AST 27 (14-36) U/L ALT 32 (4-34) U/L Alkaline Phosphatase 99 (38-126) U/L Total Protein 7.3 (6.3-8.2) g/dL Albumin 4.3 (3.5-5.0) g/dL Disposition Clinical Impression: Mechanical back pain Disposition: HOME SELF-CARE Condition: Good Instructions (If sedation given, give patient instructions): Acute Low Back Pain (ED) Additional Instructions: Follow-up with PCP and orthopedics. Report back to ER with any new or worsening symptoms. Take medication as prescribed, do not take cyclobenzaprine before driving or operating heavy machinery. Prescriptions: Cyclobenzaprine [Flexeril] 10 mg PO TID PRN #20 tab PRN Reason: Spasms Lidocaine 5% Patch [Lidoderm 5% Patch] 1 patch TOPICAL DAILY PRN #30 patch PRN Reason: Pain Is patient prescribed a controlled substance at d/c from ED?: No Referrals: Oneyda Zamudio MD [Primary Care Provider] - 1-2 days Time of Disposition: 05:16
[2022-11-22 03:45] LABS: Basophils # (A) 0.1 k/uL (0-0.2); Basophils % (A) 1 %; Eosinophils # (A) 0.7 k/uL (0-0.7); Eosinophils % (A) 6 %; HCT 42.2 % (34.0-46.0); HGB 14.2 gm/dL (11.4-16.0); Lymphocytes # (A) 2.9 k/uL (1.0-4.8); Lymphocytes % (A) 27 %; MCH 29.7 pg (25.0-35.0); MCHC 33.6 g/dL (31.0-37.0); MCV 88.6 fL (80.0-100.0); Mean Platelet Volume 6.9; Monocytes # (A) 0.5 k/uL (0-1.0); Monocytes % (A) 5 %; Neutrophils # (A) 6.3 k/uL (1.3-7.7); Neutrophils % (A) 59 %; Platelet Count 263 k/uL (150-450); RBC 4.77 m/uL (3.80-5.40); RDW 12.9 % (11.5-15.5); WBC 10.6 k/uL (3.8-10.6)
[2022-11-22 03:57] LABS: INR 0.9 (<1.2); Partial Thromboplastin Time 22.1 sec (22.0-30.0); Prothrombin Time 9.5 sec (9.0-12.0)
--- NOTE | 2022-11-22 04:22 | CT ---
EXAM: CT Angiography Head With Intravenous Contrast CLINICAL HISTORY: ITS.REASON CT Reason: pulsatile tinnitus TECHNIQUE: Axial computed tomographic angiography images of the head with intravenous contrast. CTDI is 20.5 mGy and DLP is 584.3 mGy-cm. This CT exam was performed using one or more of the following dose reduction techniques: automated exposure control, adjustment of the mA and/or kV according to patient size, and/or use of iterative reconstruction technique. MIP reconstructed images were created and reviewed. COMPARISON: No relevant prior studies available. FINDINGS: Right internal carotid artery: Intracranial segment is patent with no significant stenosis. No aneurysm. Right anterior cerebral artery: No occlusion or significant stenosis. No aneurysm. Right middle cerebral artery: No occlusion or significant stenosis. No aneurysm. Right posterior cerebral artery: No occlusion or significant stenosis. No aneurysm. Right vertebral artery: Unremarkable. Left internal carotid artery: Intracranial segment is patent with no significant stenosis. No aneurysm. Left anterior cerebral artery: No occlusion or significant stenosis. No aneurysm. Left middle cerebral artery: No occlusion or significant stenosis. No aneurysm. Left posterior cerebral artery: No occlusion or significant stenosis. No aneurysm. Left vertebral artery: Unremarkable. Basilar artery: No occlusion or significant stenosis. No aneurysm. IMPRESSION: No significant stenosis. For diagnosis of potential tinnitus, recommend outpatient IAC protocol MRI and MRA. EXAM: CT Angiography Neck With Intravenous Contrast CLINICAL HISTORY: ITS.REASON CT Reason: pulsatile tinnitus TECHNIQUE: Axial computed tomographic angiography images of the neck with intravenous contrast. CTDI is 20.5 mGy and DLP is 584.3 mGy-cm. This CT exam was performed using one or more of the following dose reduction techniques: automated exposure control, adjustment of the mA and/or kV according to patient size, and/or use of iterative reconstruction technique. MIP reconstructed images were created and reviewed. COMPARISON: No relevant prior studies available. FINDINGS: VASCULATURE: Right common carotid artery: No significant stenosis. No dissection. Right internal carotid artery: Extracranial has no significant stenosis. No dissection. Right vertebral artery: No significant stenosis. No dissection. Left common carotid artery: No significant stenosis. No dissection. Left internal carotid artery: Extracranial has no significant stenosis. No dissection. Left vertebral artery: No significant stenosis. No dissection. NECK: Bones/joints: No acute fracture. No dislocation. CAROTID STENOSIS REFERENCE USING NASCET CRITERIA: % ICA stenosis = (1 - narrowest ICA diameter/diameter of distal cervical ICA) x 100. Mild - <50% stenosis. Moderate - 50-69% stenosis. Severe - 70-94% stenosis. Near occlusion - 95-99% stenosis. Occluded - 100% stenosis. IMPRESSION: No significant stenosis.
[2022-11-22 04:27] LABS: ALT 32 U/L (4-34); AST 27 U/L (14-36); African American GFR (CKD) >90 (>60 ml/min/1.73 sqM); Albumin 4.3 g/dL (3.5-5.0); Alkaline Phosphatase 99 U/L (38-126); Anion Gap 8 mmol/L; Blood Urea Nitrogen 10 mg/dL (7-17); Calcium 9.3 mg/dL (8.4-10.2); Carbon Dioxide 26 mmol/L (22-30); Chloride 101 mmol/L (98-107); Glucose 105 mg/dL (74-99); Non-African American GFR(CKD) >90 (>60 ml/min/1.73 sqM); Potassium 3.8 mmol/L (3.5-5.1); Sodium 135 mmol/L (137-145); Total Bilirubin 0.3 mg/dL (0.2-1.3); Total Protein 7.3 g/dL (6.3-8.2)
[2022-11-22] MEDS ORDERED: HYDROmorphone 1 MG/ML 1 ML SYRINGE IVP STA (04:39)
--- NOTE | 2022-11-22 04:48 | CT ---
EXAM: CT Lumbar Spine Without Intravenous Contrast CLINICAL HISTORY: ITS.REASON CT Reason: worsening back pain TECHNIQUE: Axial computed tomography images of the lumbar spine without intravenous contrast. CTDI is 62.3 mGy and DLP is 2088.6 mGy-cm. This CT exam was performed using one or more of the following dose reduction techniques: automated exposure control, adjustment of the mA and/or kV according to patient size, and/or use of iterative reconstruction technique. COMPARISON: No relevant prior studies available. FINDINGS: Vertebrae: No acute fracture. No subluxation. Discs/spinal canal/neural foramina: No significant spinal canal stenosis. Soft tissues: Unremarkable. IMPRESSION: No acute fracture.
[2022-11-22 05:31] VITALS: BP 116/55; PULSE 61
== END 2022-11-22 05:31 | disposition home or self-care (01) ==
LOC: EC 22:09
DX: H93.A9 Pulsatile tinnitus, unspecified ear (principal); M54.50 Low back pain, unspecified; J45.909 Unspecified asthma, uncomplicated; E07.9 Disorder of thyroid, unspecified; F17.200 Nicotine dependence, unspecified, uncomplicated; F41.9 Anxiety disorder, unspecified; F32.A Depression, unspecified; Z79.84 Long term (current) use of oral hypoglycemic drugs; Z79.890 Hormone replacement therapy; Z79.899 Other long term (current) drug therapy; Z88.5 Allergy status to narcotic agent; Z88.8 Allergy status to other drugs, medicaments and biological substances
CPT/HCPCS: 36415; 93005; 80053; 85025; 85610; 85730; 72131; 70496; 70498; 99284; 96374; J1170; Q9967

== ENCOUNTER → 2023-03-30 | Outpatient (CLI) | payer OTHER ==
--- NOTE | 2023-03-30 15:50 | USB ---
Reason for Exam: Additional evaluation requested from prior study. Patient History: Menarche at age 9. First Full-Term at age 19. Perimenopausal. Currently using Hormonal Contraceptives, for 4 months. Paternal aunt had breast cancer, age 48. Risk Values: Dayanna 5 year model risk: 0.9%. NCI Lifetime model risk: 8.8%. Technique: Method: Targeted. Prior Study Comparison: 03/29/2014 Bilateral Screening Mammogram, [facility]. 04/13/2019 Bilateral Screening Mammogram, [facility]. 08/27/2022 Bilateral MG diagnostic mammo w CAD BJ[facility], [facility]. Findings: The upper outer quadrant of the right breast, the area of palpable concern of the right breast, the axilla of the right breast and the retroareolar of the right breast were scanned. There is a 0.4 x 0.3 x 0.4 cm hypoechoic area with good through transmission may be a small cyst. 16 cm from the nipple along the upper 12:00 position no discrete ultrasound abnormality is evident.. This area correlates with the patient's reported palpable region. Overall Assessment: Probably benign, BI-RAD 3 Management: Diagnostic Breast Ultrasound of the right breast in 6 months. Screening Mammogram of both breasts in 6 months. A clinical breast exam by your physician is recommended on an annual basis and results should be correlated with mammographic findings. This exam should not preclude additional follow-up of suspicious palpable abnormalities. Results were given to the patient verbally at the time of exam. Electronically signed and approved by: George Jon D.O. Radiologis
--- NOTE | 2023-03-30 17:08 | US ---
EXAMINATION TYPE: US extremity nonvasc complt LT DATE OF EXAM: 03/30/2023 COMPARISON: NONE CLINICAL INDICATION: Female, 48 years old with history of R22.9LOCALIZED SWELLING, MASS AND LUMP, UNS N63.10; Patient feels palpable lumps within her left shoulder x a few months. Patient also feels pal pable lumps within her left lateral elbow x a few weeks. TECHNIQUE: Scanned left shoulder and left lateral elbow area at patient's areas of concern. FINDINGS: No abnormalities seen by ultrasound at this time. IMPRESSION: 1. Negative ultrasound left shoulder left elbow. 2. If additional workup is required, MRI could be performed.
== END | disposition home or self-care (01) ==
LOC: RADUSWWP 15:11
PROVIDERS: ATTEND Family Medicine
DX: N63.10 Unspecified lump in the right breast, unspecified quadrant (principal); R22.9 Localized swelling, mass and lump, unspecified; Z80.3 Family history of malignant neoplasm of breast